=== PATIENT | female | born 1995 | race Caucasian/White ===

== ENCOUNTER 2019-04-13 13:42 | Emergency (ER) | payer OTHER, SELFPAY ==
[2019-04-13 13:47] VITALS: BP 152/70; PULSE 88; RESP 16; TEMP 36.6; O2SAT 100; BMI 37.1
[2019-04-13 14:11] VITALS: BP 154/102; PULSE 97; RESP 18; O2SAT 98
--- NOTE | 2019-04-13 14:12 | PC.NURSE ---
Patient reports that she has had congestion, and cough for 2 weeks. Patient states that she was seen at urgent care and diagnosed with a viral upper respiratory infection and sent home with breathing treatments. Patient states that it has not got any better. Patient reports the wheezing has got worse.
--- NOTE | 2019-04-13 14:36 | ED_ITS ---
Entered by Martha Moore, acting as scribe for Rigoberto Ashley MD, [facility] [place] Apr 13, 2019 13:42 HPI - General Adult General: Chief complaint: General Medical Stated complaint: congested Time Seen by Provider: 04/13/19 14:36 Source: patient Mode of arrival: ambulatory Limitations: no limitations History of Present Illness: HPI narrative: 23 yo Female presents to ED with complaint of migraine headache and near syncope. Pt states that she was diagnosed with a viral upper respiratory illness last week. Pt states that today she was cleaning a house and when she stool up she had to grab onto the counter to keep from passing out. Pt states that she coughs so much that she loses her breath as well. MD complaint: headache and near syncope Onset (ago): hour(s) Location: head Radiation: non-radiation Severity scale (1-10): 5 Relieving factors: none Exacerbating factors: movement Associated symptoms: Reports cough, headache(s) and syncope (near syncope); Deny dyspnea, nausea, rash or vomiting Review of Systems General: Reports: 10 or more systems reviewed and unremarkable except in HPI and below Const: Denies: fever, chills or body aches Eyes: Denies: change in vision, blurry vision or blind spots ENMT: Denies: throat pain, enlarged tonsils, painful swallowing, hoarseness, mouth pain or swelling of lips/tongue Card: Reports: syncope (near syncope) Resp: Reports: non-productive cough; Denies: shortness of breath or productive cough GI: Denies: abdominal pain, nausea or vomiting : Denies: flank pain, difficulty urinating, painful urination, urinary frequency, urinary urgency or urinary hesitancy Musc: Denies: neck pain, back pain, extremity pain, extremity swelling or joint pain Skin/Breast: Denies: rash, itching or redness Neuro: Reports: headache Endo: Denies: excessive urination, excessive thirst or tired all the time PFSH ED PFSH: Statuses (acute, chronic, etc) shown below reflect problem list status as previously entered and may not be historically accurate Social History Smoking and tobacco status: never smoked Physical Exam Const: COMMON NORMALS: no apparent distress, average body habitus, oriented x3, no limitations, healthy appearing, alert and well nourished HENMT: COMMON NORMALS: normocephalic, head/scalp atraumatic and moist oral mucous membranes HEAD & SCALP: normocephalic and atraumatic Eye: COMMON NORMALS: PERRL, EOMs intact bilaterally, conjunctivae normal and no scleral icterus CONJUNCTIVA: Yes conjunctivae normal PUPIL: Yes PERRL Neck/C-Spine: COMMON NORMALS: full ROM, supple, no meningeal signs, no JVD and no carotid bruits Chest: COMMONS NORMALS: inspection of chest normal and palpation of chest normal Resp: COMMON NORMALS: normal respiratory effort, no retractions, no use of accessory muscles, clear to auscultation bilaterally and percussion normal AUSCULTATION: clear to auscultation bilaterally PERCUSSION: percussion normal Cardio: COMMON NORMALS: no JVD, regular rate, regular rhythm, S1 normal heart sound, S2 normal heart sound, no gallops, no clicks, no murmurs, no rub and peripheral pulses 2+ throughout RATE: regular rate RHYTHM: regular rhythm HEART SOUNDS: S1 normal and S2 normal PERIPHERAL PULSES: pulses 2+ throughout GI: COMMON NORMALS: normal to inspection, nondistended, normoactive bowel sounds, soft to palpation, non-tender, no hepatosplenomegaly, no masses and no bruits PALPATION: Yes soft and Yes no hepatosplenomegaly : COMMON NORMALS: Yes no CVA tenderness BLADDER/KIDNEY EXAM: Yes no CVA tenderness Back/Pelvis: COMMON NORMALS: no CVA tenderness Extremity: COMMON NORMALS: normal to inspection, full ROM, normal capillary refill, no calf tenderness and no pedal edema Neuro: COMMON NORMALS: oriented x3 SENSORIUM/ORIENTATION: Yes alert MENINGEAL SIGNS: Yes no meningeal signs Skin: COMMON NORMALS: no rashes or lesions noted, no wounds, skin turgor normal, no jaundice, no petechiae and no mottling GENERAL SKIN EXAM: no rashes or lesions noted and turgor normal Course Reevaluation(s): Reevaluation #1: Patient feels good, no complaints. Discussed her lab and imaging findings with her. Nothing acute. I believe she has viral URI symptoms. We will discharge her home with instructions to drink lots of fluids to keep well-hydrated. She voiced understanding and is in agreement with the plan Time: 17:23 Vital Signs: Vital signs: Vital Signs Temperature 97.9 F 04/13/19 13:47 Pulse Rate 63 04/13/19 15:39 Respiratory Rate 16 04/13/19 16:30 Blood Pressure 127/82 04/13/19 16:30 Pulse Oximetry 98 04/13/19 16:30 MDM - General Adult MDM Narrative: Medical decision making narrative: 23-year-old female patient who has viral URI symptoms. She also had a single presyncopal episode after cleaning a house earlier today. All symptoms have resolved. Labs and imaging done in the emergency department was unremarkable. She is discharged home with no new orders. Medical Records: Attestation: I reviewed the patient's medical records. Lab Data: Attestation: I reviewed the patient's lab results. Labs: Lab Results 04/13/19 04/13/19 04/13/19 Range/Units 14:51 15:19 15:19 WBC 7.5 (4.0-10.0) 10^3/ uL RBC 4.95 (4.1-5.3) 10^6/u L Hgb 14.2 (11.5-15.3) g/dL Hct 43.2 (37.0-47.0) % MCV 87.3 (81-99) fL MCH 28.7 (28.0-34.0) pg MCHC 32.9 (30.0-36.0) g/dL RDW 11.7 L (12.1-15.1) % Plt Count 267 (130-400) 10^3/c mm MPV 10.1 (7.4-10.4) fL Neut % (Auto) 55.9 % Lymph % (Auto) 37.1 % Pratt % (Auto) 3.2 % Eos % (Auto) 2.7 % Baso % (Auto) 0.4 % Neut # (Auto) 4.2 (1.8-7.7) 10^3/u L Lymph # (Auto) 2.8 (0.8-4.8) 10^3/u L Pratt # (Auto) 0.2 (0.2-0.9) 10^3/u L Eos # (Auto) 0.2 (0.0-0.8) 10^3/u L Baso # (Auto) 0.0 (0.0-0.1) 10^3/u L Nucleated RBC % (a uto) 0 % Nucleated RBCs # 0.0 /100WBC Sodium 139 (136-145) mmol/L Potassium 3.6 (3.5-5.1) mmol/L Chloride 103 (98-107) mmol/L Carbon Dioxide 24 (22-29) mmol/L Anion Gap 15.6 (5-19) BUN 11 (6-20) mg/dL Creatinine 0.8 (0.5-0.9) mg/dL GFR Calculation 88.1 L (90-130) mL/min Glucose 132 H (74-109) mg/dL Calcium 9.9 (8.5-10.5) mg/dL Total Bilirubin 0.3 (0.15-1.2) mg/dL AST 16 (0-32) U/L ALT 21 (0-33) U/L Alkaline Phosphata se 111 H (35-105) IU/L Total Protein 7.7 (6.6-8.7) g/dL Albumin 4.5 (3.5-5.2) g/dL Globulin 3.2 (1.3-4.6) g/dL Influenza Type A A g Negative (Negative) POC Influenza B Ag Negative (Negative) Imaging Data^: CXR: Radiologist's impression: [address] [address] XRay Report Signed Patient: Estefany Foss #: [id number] : 1995Acct#:[id number] Age/Sex: 23 / FADM Date: 04/13/19 Loc: [facility] ([place]Bed: Attending Dr: Ordering Provider/Ordering MD: Rigoberto Ashley MD, [facility] [place] Date of Service: 04/13/19 Procedure(s): XR chest 2V* 86947 Accession Number(s): [id number] Report Number: [id number] PROCEDURE INFORMATION: Exam: XR Chest, 2 Views Exam date and time: 04/13/2019 2:57 PM Age: 23 years old Clinical indication: Chest pain; Additional info: Shortness of breath TECHNIQUE: Imaging protocol: XR of the chest Views: 2 views. COMPARISON: No relevant prior studies available. FINDINGS: Lungs: Unremarkable. No consolidation. Pleural space: Unremarkable. No pleural effusion. No pneumothorax. Heart/Mediastinum: Unremarkable. No cardiomegaly. Bones/joints: No acute findings. XR/XR chest 2V* [id number] IMPRESSION: No acute findings. Dictated By:Hoang Ortega MD Signed By:Hoang Ortega MDSigned Date/Time:04/13/19 1520 DD/ 1519 Discharge Plan Discharge Patient Disposition: Home, Self-Care Clinical Impression: Upper respiratory infection, viral Condition: Stable Prescriptions: No Action Nexplanon 68 mg implant 1 implant SUBDERMAL ONCE RF: 0 albuterol sulfate 2.5 mg /3 mL (0.083 %) solution for nebulization 2.5 mg INHALATION Q4H PRN (Reason: shortness of breath or wheezing) Qty: 90 RF: 0 Discharge Orders: Discharge Order (Routine); Ordered 04/13/19 Ordered By: Rigoberto Ashley Referrals: Tessa Vega FNP-C [Primary Care Provider] - 1-3 days Discharge Diet: Usual diet Discharge Activity: Resume usual activity Patient Instructions: Upper Respiratory Infection (ED) Activity Restrictions/Additional Instructions: Return for any new or worsening symptoms. Follow-up with your primary care provider within 3 days. Drink plenty of fluids to keep well-hydrated. Coding Level of Care Code ED Bilingual Sales Assistant for Chg Fwd Exam Problem Focused The documentation recorded by the Oscar aguila Carmen, accurately reflects the service I personally performed and the decisions made by Dion sexton Adegoke I, MD, [facility] [place] Apr 13, 2019 13:42
--- NOTE | 2019-04-13 14:45 | XRR_ITS ---
PROCEDURE INFORMATION: Exam: XR Chest, 2 Views Exam date and time: 04/13/2019 2:57 PM Age: 23 years old Clinical indication: Chest pain; Additional info: Shortness of breath TECHNIQUE: Imaging protocol: XR of the chest Views: 2 views. COMPARISON: No relevant prior studies available. FINDINGS: Lungs: Unremarkable. No consolidation. Pleural space: Unremarkable. No pleural effusion. No pneumothorax. Heart/Mediastinum: Unremarkable. No cardiomegaly. Bones/joints: No acute findings. XR/XR chest 2V* [id number] IMPRESSION: No acute findings.
[2019-04-13 14:48] VITALS: BP 135/96; RESP 17; O2SAT 98
[2019-04-13 15:17] LABS: Influenza A by IFA Negative (Negative); Influenza B by IFA Negative (Negative)
[2019-04-13 15:39] VITALS: BP 156/103; PULSE 63; RESP 18; O2SAT 96
[2019-04-13 15:45] LABS: Basophils % 0.4 %; Eosinophils # 0.2 10^3/uL (0.0-0.8); Eosinophils % 2.7 %; Hematocrit 43.2 % (37.0-47.0); Hemoglobin 14.2 g/dL (11.5-15.3); Lymphocytes # 2.8 10^3/uL (0.8-4.8); Lymphocytes % 37.1 %; Mean Corpuscular HGB Conc 32.9 g/dL (30.0-36.0); Mean Corpuscular Hemoglobin 28.7 pg (28.0-34.0); Mean Corpuscular Volume 87.3 fL (81-99); Mean Platelet Volume 10.1 fL (7.4-10.4); Monocytes # 0.2 10^3/uL (0.2-0.9); Monocytes % 3.2 %; Neutrophils # 4.2 10^3/uL (1.8-7.7); Neutrophils % 55.9 %; Nucleated Red Blood Cells % 0 %; Platelet Count 267 10^3/cmm (130-400); Red Blood Count 4.95 10^6/uL (4.1-5.3); Red Cell Distribution Width 11.7 % (12.1-15.1); White Blood Count 7.5 10^3/uL (4.0-10.0)
[2019-04-13 16:09] LABS: Alanine Aminotransferase 21 U/L (0-33); Albumin Level 4.5 g/dL (3.5-5.2); Alkaline Phosphatase 111 IU/L (35-105); Anion Gap 15.6 (5-19); Aspartate Amino Transferase 16 U/L (0-32); Blood Urea Nitrogen 11 mg/dL (6-20); Calcium 9.9 mg/dL (8.5-10.5); Carbon Dioxide 24 mmol/L (22-29); Chloride 103 mmol/L (98-107); Globulin 3.2 g/dL (1.3-4.6); Glomerular Filtration Rate 88.1 mL/min (90-130); Glucose 132 mg/dL (74-109); Potassium 3.6 mmol/L (3.5-5.1); Sodium 139 mmol/L (136-145); Total Bilirubin 0.3 mg/dL (0.15-1.2); Total Protein 7.7 g/dL (6.6-8.7)
[2019-04-13 16:30] VITALS: BP 127/82; RESP 16; O2SAT 98
[2019-04-13 17:32] VITALS: BP 120/73; PULSE 88; RESP 17; O2SAT 98
== END 2019-04-13 17:33 | disposition home or self-care (01) ==
PROVIDERS: Emergency Provider Family Medicine; Family Provider Nurse Practitioner Family; PCP Nurse Practitioner Family
DX: J06.9 Acute upper respiratory infection, unspecified (principal)
CPT/HCPCS: 36415; 71046; 80053; 85025; 87804; 99282; 99283

== ENCOUNTER 2019-04-15 13:28 | Emergency (ER) | payer OTHER, SELFPAY ==
[2019-04-15 13:38] VITALS: BP 140/78; PULSE 85; RESP 18; TEMP 36.6; O2SAT 97; BMI 37.1
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
[2019-04-15 15:16] VITALS: BP 162/95; PULSE 77; RESP 18; TEMP 36.4; O2SAT 98
== END 2019-04-15 15:17 | disposition home or self-care (01) ==
PROVIDERS: Emergency Provider Emergency Medicine; Family Provider Nurse Practitioner Family; PCP Nurse Practitioner Family
DX: S13.4XXA Sprain of ligaments of cervical spine, initial encounter (principal); V89.2XXA Person injured in unspecified motor-vehicle accident, traffic, initial encounter
CPT/HCPCS: 72072; 72100; 72125; 73030; 99281; 99284

== ENCOUNTER 2019-05-30 19:15 | Emergency (ER) | payer OTHER, SELFPAY ==
[2019-05-30 19:20] VITALS: BP 113/74; PULSE 133; RESP 20; TEMP 37.6; O2SAT 98; BMI 378.4
--- NOTE | 2019-05-30 19:52 | ED_ITS ---
Entered by Martha Moore, acting as scribe for Rigoberto Ashley MD, [facility] [place] - Nausea/Vomiting/Diarrhea General: Chief complaint: Nausea/Vomiting/Diarrhea Stated complaint: abd pain Time Seen by Provider: 05/30/19 19:47 Source: patient Mode of arrival: ambulatory Limitations: no limitations History of Present Illness: HPI Narrative: 23 yo Female presents to ED with complaint of back pain and right side abdominal pain. Pt states that these pains started this afternoon. Pt states that she had an episode like this last week but it went away. Pt states that she had her first period in 5 years, last week. Pt states that she normally doesn't have a period while on control. Pt states that she also has a history of ovarian cysts and that the last time she had it checked the cyst had overtaken her right ovary. MD elicited complaint: abdominal pain Onset (ago): hour(s) Associated nausea: No Associated abdominal pain: Yes Location of pain: RLQ Pain consistency: constant Relieving factors: none Associated symtoms: Reports fevers/chills and headache(s); Denies change in vision, chest pain, decreased urine output, dysuria, nausea or palpitations Review of Systems General: Reports: 10 or more systems reviewed and unremarkable except in HPI and below Const: Reports: fever and chills; Denies: body aches Eyes: Denies: change in vision or blurry vision ENMT: Denies: throat pain, enlarged tonsils, painful swallowing, hoarseness, mouth pain or swelling of lips/tongue Card: Denies: chest pain, palpitations, irregular heart rhythm, edema or swelling of feet/ankles Resp: Denies: shortness of breath, productive cough or non-productive cough GI: Reports: abdominal pain; Denies: nausea or vomiting : Denies: flank pain, difficulty urinating, painful urination, urinary frequency, urinary urgency or urinary hesitancy Musc: Denies: neck pain, back pain or extremity swelling Skin/Breast: Denies: rash, itching or redness Neuro: Reports: headache; Denies: numbness in extremities or weakness in extremities Endo: Denies: excessive urination, excessive thirst or tired all the time [facility] ED PFSH: Social History Smoking and tobacco status: never smoked Female Reproductive History: Date of last menstrual period: 02/11/19 Physical Exam Const: COMMON NORMALS: no apparent distress, average body habitus, oriented x3, no limitations, healthy appearing, alert and well nourished HENMT: COMMON NORMALS: normocephalic, head/scalp atraumatic and moist oral mucous membranes HEAD & SCALP: normocephalic and atraumatic Eye: COMMON NORMALS: PERRL, EOMs intact bilaterally, conjunctivae normal and no scleral icterus CONJUNCTIVA: Yes conjunctivae normal PUPIL: Yes PERRL Neck/C-Spine: COMMON NORMALS: full ROM, supple, no meningeal signs, no JVD and no carotid bruits Chest: COMMONS NORMALS: inspection of chest normal and palpation of chest normal Resp: COMMON NORMALS: normal respiratory effort, no retractions, no use of accessory muscles, clear to auscultation bilaterally and percussion normal AUSCULTATION: clear to auscultation bilaterally PERCUSSION: percussion normal Cardio: COMMON NORMALS: no JVD, regular rate, regular rhythm, S1 normal heart sound, S2 normal heart sound, no gallops, no clicks, no murmurs, no rub and peripheral pulses 2+ throughout RATE: regular rate RHYTHM: regular rhythm HEART SOUNDS: S1 normal and S2 normal PERIPHERAL PULSES: pulses 2+ throughout GI: COMMON NORMALS: normal to inspection, nondistended, normoactive bowel sounds, soft to palpation, no hepatosplenomegaly, no masses and no bruits; negative for non-tender PALPATION: Yes soft, Yes tender Details: RLQ and Yes no hepatosplenomegaly : COMMON NORMALS: Yes no CVA tenderness BLADDER/KIDNEY EXAM: Yes no CVA tenderness Back/Pelvis: COMMON NORMALS: no CVA tenderness Extremity: COMMON NORMALS: normal to inspection, full ROM, normal capillary refill, no calf tenderness and no pedal edema Neuro: COMMON NORMALS: oriented x3 SENSORIUM/ORIENTATION: Yes alert MENINGEAL SIGNS: Yes no meningeal signs Skin: COMMON NORMALS: no rashes or lesions noted, no wounds, skin turgor normal, no jaundice, no petechiae and no mottling GENERAL SKIN EXAM: no rashes or lesions noted and turgor normal Course Reevaluation(s): Reevaluation #1: Patient seen. She feels better now. Her headache and abdominal pain have improved. She thinks she is ready to go home. We will discharge her home on conservative management. Time: 22:50 Vital Signs: Vital signs: Vital Signs Temperature 99.7 F H 05/30/19 19:20 Pulse Rate 133 H 05/30/19 19:20 Respiratory Rate 17 05/30/19 22:15 Blood Pressure 113/74 05/30/19 19:20 Pulse Oximetry 98 05/30/19 22:15 MDM - Nausea/Vomiting/Diarrhea MDM Narrative: Medical decision making narrative: 23-year-old female patient who presents to the emergency department with complaints of right lower quadrant pain. Evaluation in the emergency department showed tenderness in the right lower quadrant but with no rebound tenderness. She had mild leukocytosis and mildly elevated CRP. CT scan was negative for acute appendicitis and showed mesenteric adenitis. She is discharged home on conservative measures. She is to follow-up with her primary care provider. Medical Records: Attestation: I reviewed the patient's medical records. Lab Data: Attestation: I reviewed the patient's lab results. Labs: Lab Results 05/30/19 05/30/19 05/30/19 Range/Units 19:59 19:59 19:59 WBC 11.3 H (4.0-10.0) 10^3/ uL RBC 4.87 (4.1-5.3) 10^6/u L Hgb 14.9 (11.5-15.3) g/dL Hct 44.4 (37.0-47.0) % MCV 91.2 (81-99) fL MCH 30.6 (28.0-34.0) pg MCHC 33.6 (30.0-36.0) g/dL RDW 12.9 (12.1-15.1) % Plt Count 270 (130-400) 10^3/c mm MPV 10.3 (7.4-10.4) fL Neut % (Auto) 88.7 % Lymph % (Auto) 5.6 % Coryell % (Auto) 4.9 % Eos % (Auto) 0.1 % Baso % (Auto) 0.3 % Neut # (Auto) 10.0 H (1.8-7.7) 10^3/u L Lymph # (Auto) 0.6 L (0.8-4.8) 10^3/u L Coryell # (Auto) 0.6 (0.2-0.9) 10^3/u L Eos # (Auto) 0.0 (0.0-0.8) 10^3/u L Baso # (Auto) 0.0 (0.0-0.1) 10^3/u L Nucleated RBC % (a uto) 0 % Nucleated RBCs # 0.0 /100WBC Sodium 137 (136-145) mmol/L Potassium 3.7 (3.5-5.1) mmol/L Chloride 102 (98-107) mmol/L Carbon Dioxide 19 L (22-29) mmol/L Anion Gap 19.7 H (5-19) BUN 17 (6-20) mg/dL Creatinine 0.8 (0.5-0.9) mg/dL GFR Calculation 88.1 L (90-130) mL/min Glucose 107 (65-115) mg/dL Calculated Osmolal ity 281 L (285-295) mOsm/k g Lactate 1.5 (0.5-2.2) mmol/L Calcium 9.5 (8.5-10.5) mg/dL Total Bilirubin 0.6 (0.15-1.2) mg/dL AST 20 (0-32) U/L ALT 32 (0-33) U/L Alkaline Phosphata se 96 (35-105) IU/L C-Reactive Protein 11.4 H (0.0-4.9) mg/L Total Protein 7.1 (6.6-8.7) g/dL Albumin 4.5 (3.5-5.2) g/dL Globulin 2.6 (1.3-4.6) g/dL HCG, Qual (Negative) Urine Color (Yellow) Urine Appearance (CLEAR) Urine pH (5-7) Ur Specific Gravit y (1.005-1.030) Urine Protein (Negative) Urine Glucose (UA) (Normal) Urine Ketones (Negative) Urine Blood (Negative) Urine Nitrate (Negative) Urine Bilirubin (NEGATIVE) Urine Urobilinogen (Negative) mg/dL Ur Leukocyte Charmaine ase (Negative) Urine RBC (0-2) /hpf Urine WBC (0-5) /hpf Ur Squamous Epith Cells (0-5) Urine Bacteria (NONE) Urine Mucus 05/30/19 05/30/19 Range/Units 20:46 20:46 WBC (4.0-10.0) 10^3/ uL RBC (4.1-5.3) 10^6/u L Hgb (11.5-15.3) g/dL Hct (37.0-47.0) % MCV (81-99) fL MCH (28.0-34.0) pg MCHC (30.0-36.0) g/dL RDW (12.1-15.1) % Plt Count (130-400) 10^3/c mm MPV (7.4-10.4) fL Neut % (Auto) % Lymph % (Auto) % Coryell % (Auto) % Eos % (Auto) % Baso % (Auto) % Neut # (Auto) (1.8-7.7) 10^3/u L Lymph # (Auto) (0.8-4.8) 10^3/u L Coryell # (Auto) (0.2-0.9) 10^3/u L Eos # (Auto) (0.0-0.8) 10^3/u L Baso # (Auto) (0.0-0.1) 10^3/u L Nucleated RBC % (a uto) % Nucleated RBCs # /100WBC Sodium (136-145) mmol/L Potassium (3.5-5.1) mmol/L Chloride (98-107) mmol/L Carbon Dioxide (22-29) mmol/L Anion Gap (5-19) BUN (6-20) mg/dL Creatinine (0.5-0.9) mg/dL GFR Calculation (90-130) mL/min Glucose (65-115) mg/dL Calculated Osmolal ity (285-295) mOsm/k g Lactate (0.5-2.2) mmol/L Calcium (8.5-10.5) mg/dL Total Bilirubin (0.15-1.2) mg/dL AST (0-32) U/L ALT (0-33) U/L Alkaline Phosphata se (35-105) IU/L C-Reactive Protein (0.0-4.9) mg/L Total Protein (6.6-8.7) g/dL Albumin (3.5-5.2) g/dL Globulin (1.3-4.6) g/dL HCG, Qual Negative (Negative) Urine Color Yellow (Yellow) Urine Appearance Hazy A (CLEAR) Urine pH 6 (5-7) Ur Specific Gravit y 1.015 (1.005-1.030) Urine Protein Neg (Negative) Urine Glucose (UA) Norm (Normal) Urine Ketones Negative (Negative) Urine Blood 2+ H (Negative) Urine Nitrate Negative (Negative) Urine Bilirubin Neg (NEGATIVE) Urine Urobilinogen Norm (Negative) mg/dL Ur Leukocyte Charmaine ase Trace H (Negative) Urine RBC 5-10 H (0-2) /hpf Urine WBC 5-10 H (0-5) /hpf Ur Squamous Epith Cells 5-10 H (0-5) Urine Bacteria 1+ H (NONE) Urine Mucus 1+ Imaging Data^: CT Abd/Pel: Radiologist's impression: [place] [address] CT Scan Report Signed Patient: Estefany Foss #: [id number] : 1995Acct#:[id number] Age/Sex: 23 FADM Date: 05/30/19 Loc: ERRoom/Bed: Attending Dr: Ordering Provider/Ordering MD: Rigoberto Ashley MD, [facility] Date of Service: 05/30/19 Procedure(s): CT abdomen pelvis w con* [id number] Accession Number(s): [id number] Report Number: [id number] PROCEDURE INFORMATION: Exam: CT Abdomen And Pelvis With Contrast Exam date and time: 05/30/2019 9:24 PM Age: 23 years old Clinical indication: Nausea and vomiting; Abdominal pain; Generalized; Additional info: Rlq pain TECHNIQUE: Imaging protocol: Computed tomography of the abdomen and pelvis with intravenous contrast. Total DLP: 1670.1 mGy-cm Radiation optimization: All CT scans at this facility use at least one of these dose optimization techniques: automated exposure control; mA and/or kV adjustment per patient size (includes targeted exams where dose is matched to clinical indication); or iterative reconstruction. Contrast material: OMNI 300; Contrast volume: 95 ml; Contrast route: 20G; COMPARISON: No relevant prior studies available. FINDINGS: Liver: Unremarkable. No mass. Gallbladder and bile ducts: Normal. No calcified stones. No ductal dilation. Pancreas: Normal. No ductal dilation. Spleen: Normal. No splenomegaly. Adrenals: Normal. No mass. Kidneys and ureters: Normal. No hydronephrosis. Stomach and bowel: Nonobstructive bowel pattern. No evidence for adynamic or reactive ileus. No evidence for diverticulitis. Appendix: The appendix is visualized and is noninflamed. Intraperitoneal space: Examination reveals mild mesenteritis with mesenteric lymphadenitis. Vasculature: The abdominal aorta is nonaneurysmal. Lymph nodes: Unremarkable. No enlarged lymph nodes. Bladder: Unremarkable as visualized. Reproductive: Examination reveals a simple left ovarian cyst maximum dimensions 39 mm x 25 mm x 31 mm. Recommend US follow-up in 6-12 weeks. Small, less than 1 cm, right ovarian follicle cysts. Bones/joints: No visible active musculoskeletal pathology. Soft tissues: Unremarkable. Other findings: Lung bases clear. CT/CT abdomen pelvis w con* [id number] IMPRESSION: 1. Mild mesenteritis with mesenteric lymphadenitis. 2. The appendix is visualized and is noninflamed. 3. Examination reveals a simple left ovarian cyst maximum dimensions 39 mm x 25 mm x 31 mm. Recommend US follow-up in 6-12 weeks. Radiation Dose CTDIVOL = (mGy): DLP = 1670.1 (mGy-cm) Dictated By:Frank Toledo Signed By:Frank ToledoSignfredi Date/Time:05/30/192156 DD/ 54 EKG Data^: EKG 1: Attestation: I personally reviewed and interpreted this EKG as follows: EKG interpretation date: 05/30/19 Prior EKG tracings: not available for review Interpretation: Sinus tachycardia. Heart rate [address] changes. Normal axis. Discharge Plan Discharge Patient Disposition: Home, Self-Care Clinical Impression: Acute mesenteric adenitis, Cyst of left ovary Condition: Stable Prescriptions: Continued Nexplanon 68 mg implant 1 implant SUBDERMAL ONCE RF: 0 Discharge Orders: Discharge Order (Routine); Ordered 05/30/19 Ordered By: Rigoberto Ashley Referrals: Tessa Vega FNP-C [Primary Care Provider] - 7-10 days Patient Instructions: Mesenteric Adenitis (ED) Activity Restrictions/Additional Instructions: Return for any new or worsening symptoms. Follow up with your primary care provider within one week. Take tylenol or ibuprofen as needed for pain. Stand Alone Forms: Work/School Release Discharge Date/Time: 05/30/19 23:09 Coding Level of Care Code ED Us Administrative Law Judge for Chg Fwd Exam Comprehensive The documentation recorded by the Oscar aguila Carmen, accurately reflects the service I personally performed and the decisions made by Dion sexton Adegoke I, MD, [facility] May 30, 2019 19:15
--- NOTE | 2019-05-30 20:04 | CTR_ITS ---
PROCEDURE INFORMATION: Exam: CT Abdomen And Pelvis With Contrast Exam date and time: 05/30/2019 9:24 PM Age: 23 years old Clinical indication: Nausea and vomiting; Abdominal pain; Generalized; Additional info: Rlq pain TECHNIQUE: Imaging protocol: Computed tomography of the abdomen and pelvis with intravenous contrast. Total DLP: 1670.1 mGy-cm Radiation optimization: All CT scans at this facility use at least one of these dose optimization techniques: automated exposure control; mA and/or kV adjustment per patient size (includes targeted exams where dose is matched to clinical indication); or iterative reconstruction. Contrast material: OMNI 300; Contrast volume: 95 ml; Contrast route: 20G; COMPARISON: No relevant prior studies available. FINDINGS: Liver: Unremarkable. No mass. Gallbladder and bile ducts: Normal. No calcified stones. No ductal dilation. Pancreas: Normal. No ductal dilation. Spleen: Normal. No splenomegaly. Adrenals: Normal. No mass. Kidneys and ureters: Normal. No hydronephrosis. Stomach and bowel: Nonobstructive bowel pattern. No evidence for adynamic or reactive ileus. No evidence for diverticulitis. Appendix: The appendix is visualized and is noninflamed. Intraperitoneal space: Examination reveals mild mesenteritis with mesenteric lymphadenitis. Vasculature: The abdominal aorta is nonaneurysmal. Lymph nodes: Unremarkable. No enlarged lymph nodes. Bladder: Unremarkable as visualized. Reproductive: Examination reveals a simple left ovarian cyst maximum dimensions 39 mm x 25 mm x 31 mm. Recommend US follow-up in 6-12 weeks. Small, less than 1 cm, right ovarian follicle cysts. Bones/joints: No visible active musculoskeletal pathology. Soft tissues: Unremarkable. Other findings: Lung bases clear. CT/CT abdomen pelvis w con* [id number] IMPRESSION: 1. Mild mesenteritis with mesenteric lymphadenitis. 2. The appendix is visualized and is noninflamed. 3. Examination reveals a simple left ovarian cyst maximum dimensions 39 mm x 25 mm x 31 mm. Recommend US follow-up in 6-12 weeks. Radiation Dose CTDIVOL = (mGy): DLP = 1670.1 (mGy-cm)
[2019-05-30] MEDS: sodium chloride 0.9% 1,000 ML 999 ML IV (20:10)
[2019-05-30 20:20] LABS: Basophils % 0.3 %; Eosinophils % 0.1 %; Hematocrit 44.4 % (37.0-47.0); Hemoglobin 14.9 g/dL (11.5-15.3); Lymphocytes # 0.6 10^3/uL (0.8-4.8); Lymphocytes % 5.6 %; Mean Corpuscular HGB Conc 33.6 g/dL (30.0-36.0); Mean Corpuscular Hemoglobin 30.6 pg (28.0-34.0); Mean Corpuscular Volume 91.2 fL (81-99); Mean Platelet Volume 10.3 fL (7.4-10.4); Monocytes # 0.6 10^3/uL (0.2-0.9); Monocytes % 4.9 %; Neutrophils % 88.7 %; Nucleated Red Blood Cells % 0 %; Platelet Count 270 10^3/cmm (130-400); Red Blood Count 4.87 10^6/uL (4.1-5.3); Red Cell Distribution Width 12.9 % (12.1-15.1); White Blood Count 11.3 10^3/uL (4.0-10.0)
[2019-05-30 20:33] LABS: Alanine Aminotransferase 32 U/L (0-33); Albumin Level 4.5 g/dL (3.5-5.2); Alkaline Phosphatase 96 IU/L (35-105); Anion Gap 19.7 (5-19); Aspartate Amino Transferase 20 U/L (0-32); Blood Urea Nitrogen 17 mg/dL (6-20); C Reactive Protein 11.4 mg/L (0.0-4.9); Calcium 9.5 mg/dL (8.5-10.5); Carbon Dioxide 19 mmol/L (22-29); Chloride 102 mmol/L (98-107); Globulin 2.6 g/dL (1.3-4.6); Glomerular Filtration Rate 88.1 mL/min (90-130); Glucose 107 mg/dL (65-115); Lactate (Lactic Acid level) 1.5 mmol/L (0.5-2.2); Osmolality Calculated 281 mOsm/kg (285-295); Potassium 3.7 mmol/L (3.5-5.1); Sodium 137 mmol/L (136-145); Total Bilirubin 0.6 mg/dL (0.15-1.2); Total Protein 7.1 g/dL (6.6-8.7)
[2019-05-30 21:12] LABS: HCG Qualitative Urine. Negative (Negative)
[2019-05-30 21:14] LABS: Add Urine Microscopic? YES; Bilirubin Urine Neg (NEGATIVE); Blood Urine 2+ (Negative); Glucose Urine UA Norm (Normal); Ketones Urine Negative (Negative); Leukocyte Esterase Urine Trace (Negative); Nitrate Urine Negative (Negative); Protein Urine Neg (Negative); Specific Gravity, Urine 1.015 (1.005-1.030); Urine Appearance Hazy (CLEAR); Urine Color Yellow (Yellow); Urobilinogen Urine Norm (Negative); pH Urine 6 (5-7)
[2019-05-30 21:36] LABS: Add Urine Culture? No; Bacteria Urine 1+; Mucus Urine 1+
[2019-05-30] MEDS: iohexol 300 mg/mL 100 mL Btl IV (21:38)
[2019-05-30 22:15] VITALS: RESP 17; O2SAT 98
[2019-05-30] MEDS: morphine 4 mg/mL SDV 1 mL IVP (22:15)
[2019-05-30] MEDS: diphenhydrAMINE 50 mg/mL SDV 1mL 25 MG IVP (22:21)
[2019-05-30] MEDS: ketorolac 30 mg/mL INJ IVP (22:22)
[2019-05-30 23:09] VITALS: BP 108/57; PULSE 103; RESP 18; O2SAT 96
== END 2019-05-30 23:09 | disposition home or self-care (01) ==
PROVIDERS: Emergency Provider Family Medicine; Family Provider Nurse Practitioner Family; PCP Nurse Practitioner Family
DX: I88.0 Nonspecific mesenteric lymphadenitis (principal); N83.292 Other ovarian cyst, left side; D72.829 Elevated white blood cell count, unspecified; R79.82 Elevated C-reactive protein (CRP)
CPT/HCPCS: 12345; 36415; 74177; 80053; 81001; 81025; 83605; 85025; 86140; 87040; 96360; 96361; 96374; 96375; 99283; A9270; J1200; J1885; J2270; J7030; Q9967

== ENCOUNTER 2019-05-31 14:20 | Observation (INO) | payer OTHER, SELFPAY ==
[2019-05-31 14:28] VITALS: BP 116/73; PULSE 138; RESP 16; TEMP 36.8; O2SAT 142; BMI 37.5
--- NOTE | 2019-05-31 14:44 | ECG_ITS ---
Measurements Intervals [place] Rate: 120 P: 33 MI: 144 QRS: 79 QRSD: 85 T: 3 QT: 323 QTc: 458 SINUS TACHYCARDIA POSSIBLE RIGHT VENTRICULAR CONDUCTION DELAY [RSR (QR) IN V1/V2] NONSPECIFIC T-WAVE ABNORMALITY No previous ECG available for comparison Electronically Signed On 05-31-2019 17:43:21 CDT by Lulu Verdugo M.D. [email or web address]
--- NOTE | 2019-05-31 14:45 | W.ED.ABDPA2 ---
Documented by User: Teri Rocha 05/31/19 16:31 HPI - Abdominal Pain General: Chief Complaint: Abdominal Pain Stated Complaint: back and abd pain, h/a Time Seen by Provider: 05/31/19 14:34 Source: patient Mode of arrival: ambulatory Limitations: no limitations History of Present Illness: MD elicited complaint: abdominal pain and flank pain Severity: moderate Quality: cramping Associated Symptoms: Reports chills, fever(s), nausea and vomiting; Denies dysuria Related Data: Date of Last Menstrual Period: 02/11/19 Review of Systems Const: Reports: fever, chills and fatigue GI: Reports: abdominal pain, nausea and vomiting : Reports: flank pain and pelvic pain; Denies: painful urination PFSH ED PFSH: Social History Smoking and tobacco status: never smoked Female Reproductive History: Date of last menstrual period: 02/11/19 Physical Exam Narrative: EXAM NARRATIVE: Pt is visibly shaking during assessment due to chills. HR elevated upon checking. Const: COMMON NORMALS: no apparent distress, oriented x3, no limitations and alert GENERAL APPEARANCE: cooperative and comfortable ORIENTATION/CONSCIOUSNESS: Yes awake, Yes oriented to person, Yes oriented to place and Yes oriented to time HENMT: COMMON NORMALS: normocephalic, head/scalp atraumatic, external ears normal, EAC's normal, TM's normal bilaterally and external nose normal HEAD & SCALP: normal to inspection, normocephalic and atraumatic FACE & SINUS: normal facial exam, sinuses nontender and face symmetric NOSE: external nose normal, nares normal and no nasal discharge EXTERNAL EAR: Yes external ears normal EXTERNAL AUDITORY CANAL: EAC's normal TYMPANIC MEMBRANE: TM's normal bilaterally MOUTH: oral and palatal mucosa normal, lip normal and tongue normal THROAT: posterior oropharynx normal, tonsils normal and uvula midline Eye: COMMON NORMALS: PERRL, EOMs intact bilaterally and conjunctivae normal GENERAL EYE: normal appearance of both eyes and normal light reflex EYELID: eyelids normal CONJUNCTIVA: Yes conjunctivae normal PUPIL: Yes PERRL EOM: Yes EOM abnormal DIRECT OPHTHALMOSCOPY: Yes normal light reflex Neck/C-Spine: COMMON NORMALS: full ROM, no lymphadenopathy, supple, no meningeal signs, no JVD and thyroid normal GENERAL: Yes normal visual inspection THYROID: thyroid normal CERVICAL SPINE: Yes cervical ROM normal and Yes normal cervical lordosis Lymph: LYMPHATIC: no lymphadenopathy noted Chest: COMMONS NORMALS: inspection of chest normal and palpation of chest normal Resp: COMMON NORMALS: normal respiratory effort, no retractions and clear to auscultation bilaterally AUSCULTATION: clear to auscultation bilaterally Cardio: COMMON NORMALS: no JVD, regular rate, regular rhythm, S1 normal heart sound, S2 normal heart sound, no gallops, no clicks, no murmurs, no rub and peripheral pulses 2+ throughout RATE: regular rate RHYTHM: regular rhythm HEART SOUNDS: S1 normal and S2 normal PERIPHERAL PULSES: pulses 2+ throughout GI: COMMON NORMALS: normal to inspection, nondistended, normoactive bowel sounds, soft to palpation, non-tender and no masses PALPATION: Yes soft : COMMON NORMALS: Yes external appearance normal BLADDER/KIDNEY EXAM: Yes CVA tenderness Back/Pelvis: COMMON NORMALS: thoracic and lumbar spine normal to inspection, no thoracic nor lumbar tenderness and thoraco-lumbar ROM normal GENERAL BACK: Yes CVA tenderness CVA tenderness: bilateral Extremity: COMMON NORMALS: normal to inspection, full ROM, normal capillary refill, no joint enlargement, no clubbing, cyanosis or edema, no calf tenderness and no pedal edema GENERAL: Yes normal exam except as noted Neuro: COMMON NORMALS: oriented x3, moves all extremities, no focal motor deficits, no sensory deficits noted and gait normal SENSORIUM/ORIENTATION: Yes alert, Yes oriented to person, Yes oriented to place and Yes oriented to time MENINGEAL SIGNS: Yes no meningeal signs Psych: COMMON NORMALS: mental status grossly normal, thought process normal, cooperative, affect normal, speech normal and activity/motor behavior normal SPEECH: Yes normal speech THOUGHT PROCESS: normal thought process Skin: COMMON NORMALS: no rashes or lesions noted, no wounds and skin turgor normal GENERAL SKIN EXAM: no rashes or lesions noted and turgor normal Course ED course: Pt was seen yesterday and dx with left ovarian cyst and mesenteric lymphadenitis. WBC was less than 10 yesterday but pt appears mildly toxic when being seen today. Reassessment of labs as well as kidneys to ensure pt does not have infection as her HR remains elevated despite fluids given yesterday. Reevaluation(s): Reevaluation #1: Pt pain has improved. HR decreasing at 118 while at rest. Has had sudden and intense episodes of pain in flank area but otherwise is not toxic appearing. Her WBC count is downto 7.2 from yesterday. Awaiting UA at this time. Pt does note that she has not had a period in over a year but had one starting last week and had a lot of pain associated with it. She is no longer menstruating today. Time: 16:31 Vital Signs: Vital signs: Vital Signs Temperature 98.1 F 06/01/19 00:01 Pulse Rate 92 06/01/19 00:01 Respiratory Rate 20 H 06/01/19 00:01 Blood Pressure 123/81 06/01/19 00:01 Pulse Oximetry 97 06/01/19 00:01 MDM - Abdominal Pain Lab Data: Labs: Lab Results 05/31/19 05/31/19 05/31/19 Range/Units 15:04 15:04 15:04 WBC 7.2 (4.0-10.0) 10^3/ uL RBC 4.71 (4.1-5.3) 10^6/u L Hgb 14.3 (11.5-15.3) g/dL Hct 44.3 (37.0-47.0) % MCV 94.1 (81-99) fL MCH 30.4 (28.0-34.0) pg MCHC 32.3 (30.0-36.0) g/dL RDW 13.3 (12.1-15.1) % Plt Count 239 (130-400) 10^3/c mm MPV 10.0 (7.4-10.4) fL Neut % (Auto) 82.1 % Lymph % (Auto) 8.3 % [place] % (Auto) 8.8 % Eos % (Auto) 0.0 % Baso % (Auto) 0.4 % Neut # (Auto) 5.9 (1.8-7.7) 10^3/u L Lymph # (Auto) 0.6 L (0.8-4.8) 10^3/u L [place] # (Auto) 0.6 (0.2-0.9) 10^3/u L Eos # (Auto) 0.0 (0.0-0.8) 10^3/u L Baso # (Auto) 0.0 (0.0-0.1) 10^3/u L Nucleated RBC % (a uto) 0 % Nucleated RBCs # 0.0 /100WBC Sodium 138 (136-145) mmol/L Potassium 3.6 (3.5-5.1) mmol/L Chloride 105 (98-107) mmol/L Carbon Dioxide 22 (22-29) mmol/L Anion Gap 14.6 (5-19) BUN 13 (6-20) mg/dL Creatinine 0.8 (0.5-0.9) mg/dL GFR Calculation 88.1 L (90-130) mL/min Glucose 106 (65-115) mg/dL Calculated Osmolal ity 283 L (285-295) mOsm/k g Lactate 0.8 (0.5-2.2) mmol/L Calcium 9.1 (8.5-10.5) mg/dL Total Bilirubin 0.5 (0.15-1.2) mg/dL AST 20 (0-32) U/L ALT 26 (0-33) U/L Alkaline Phosphata se 90 (35-105) IU/L Creatine Kinase (26-192) U/L Troponin T Gen 5 n g/L (0-10) ng/mL Total Protein 7.2 (6.6-8.7) g/dL Albumin 3.8 (3.5-5.2) g/dL Globulin 3.4 (1.3-4.6) g/dL TSH (0.27-4.20) uIU/ mL Urine Color (Yellow) Urine Appearance (CLEAR) Urine pH (5-7) Ur Specific Gravit y (1.005-1.030) Urine Protein (Negative) Urine Glucose (UA) (Normal) Urine Ketones (Negative) Urine Blood (Negative) Urine Nitrate (Negative) Urine Bilirubin (NEGATIVE) Urine Urobilinogen (Negative) mg/dL Ur Leukocyte Charmaine ase (Negative) Urine Opiates Scre en (Negative) ng/mL Ur Barbiturates Sc reen (Negative) ng/mL Ur Phencyclidine S crn (Negative) ng/mL Ur Amphetamines Sc reen (Negative) ng/mL U Benzodiazepines Scrn (Negative) ng/mL Urine Cocaine Scre en (Negative) ng/mL U Marijuana (THC) Screen (Negative) ng/mL Ethyl Alcohol (0-10) mg/dL 05/31/19 05/31/19 05/31/19 Range/Units 16:55 16:55 22:05 WBC (4.0-10.0) 10^3/ uL RBC (4.1-5.3) 10^6/u L Hgb (11.5-15.3) g/dL Hct (37.0-47.0) % MCV (81-99) fL MCH (28.0-34.0) pg MCHC (30.0-36.0) g/dL RDW (12.1-15.1) % Plt Count (130-400) 10^3/c mm MPV (7.4-10.4) fL Neut % (Auto) % Lymph % (Auto) % [place] % (Auto) % Eos % (Auto) % Baso % (Auto) % Neut # (Auto) (1.8-7.7) 10^3/u L Lymph # (Auto) (0.8-4.8) 10^3/u L [place] # (Auto) (0.2-0.9) 10^3/u L Eos # (Auto) (0.0-0.8) 10^3/u L Baso # (Auto) (0.0-0.1) 10^3/u L Nucleated RBC % (a uto) % Nucleated RBCs # /100WBC Sodium (136-145) mmol/L Potassium (3.5-5.1) mmol/L Chloride (98-107) mmol/L Carbon Dioxide (22-29) mmol/L Anion Gap (5-19) BUN (6-20) mg/dL Creatinine (0.5-0.9) mg/dL GFR Calculation (90-130) mL/min Glucose (65-115) mg/dL Calculated Osmolal ity (285-295) mOsm/k g Lactate (0.5-2.2) mmol/L Calcium (8.5-10.5) mg/dL Total Bilirubin (0.15-1.2) mg/dL AST (0-32) U/L ALT (0-33) U/L Alkaline Phosphata se (35-105) IU/L Creatine Kinase 56 (26-192) U/L Troponin T Gen 5 n g/L (0-10) ng/mL Total Protein (6.6-8.7) g/dL Albumin (3.5-5.2) g/dL Globulin (1.3-4.6) g/dL TSH 1.37 (0.27-4.20) uIU/ mL Urine Color Yellow (Yellow) Urine Appearance Clear (CLEAR) Urine pH 5 (5-7) Ur Specific Gravit y 1.015 (1.005-1.030) Urine Protein Neg (Negative) Urine Glucose (UA) Norm (Normal) Urine Ketones Negative (Negative) Urine Blood Neg (Negative) Urine Nitrate Negative (Negative) Urine Bilirubin Neg (NEGATIVE) Urine Urobilinogen Norm (Negative) mg/dL Ur Leukocyte Charmaine ase Negative (Negative) Urine Opiates Scre en Positive H (Negative) ng/mL Ur Barbiturates Sc reen Negative (Negative) ng/mL Ur Phencyclidine S crn Negative (Negative) ng/mL Ur Amphetamines Sc reen Negative (Negative) ng/mL U Benzodiazepines Scrn Negative (Negative) ng/mL Urine Cocaine Scre en Negative (Negative) ng/mL U Marijuana (THC) Screen Negative (Negative) ng/mL Ethyl Alcohol < 10 (0-10) mg/dL 05/31/19 Range/Units 22:05 WBC (4.0-10.0) 10^3/ uL RBC (4.1-5.3) 10^6/u L Hgb (11.5-15.3) g/dL Hct (37.0-47.0) % MCV (81-99) fL MCH (28.0-34.0) pg MCHC (30.0-36.0) g/dL RDW (12.1-15.1) % Plt Count (130-400) 10^3/c mm MPV (7.4-10.4) fL Neut % (Auto) % Lymph % (Auto) % [place] % (Auto) % Eos % (Auto) % Baso % (Auto) % Neut # (Auto) (1.8-7.7) 10^3/u L Lymph # (Auto) (0.8-4.8) 10^3/u L [place] # (Auto) (0.2-0.9) 10^3/u L Eos # (Auto) (0.0-0.8) 10^3/u L Baso # (Auto) (0.0-0.1) 10^3/u L Nucleated RBC % (a uto) % Nucleated RBCs # /100WBC Sodium (136-145) mmol/L Potassium (3.5-5.1) mmol/L Chloride (98-107) mmol/L Carbon Dioxide (22-29) mmol/L Anion Gap (5-19) BUN (6-20) mg/dL Creatinine (0.5-0.9) mg/dL GFR Calculation (90-130) mL/min Glucose (65-115) mg/dL Calculated Osmolal ity (285-295) mOsm/k g Lactate (0.5-2.2) mmol/L Calcium (8.5-10.5) mg/dL Total Bilirubin (0.15-1.2) mg/dL AST (0-32) U/L ALT (0-33) U/L Alkaline Phosphata se (35-105) IU/L Creatine Kinase (26-192) U/L Troponin T Gen 5 n g/L 6 (0-10) ng/mL Total Protein (6.6-8.7) g/dL Albumin (3.5-5.2) g/dL Globulin (1.3-4.6) g/dL TSH (0.27-4.20) uIU/ mL Urine Color (Yellow) Urine Appearance (CLEAR) Urine pH (5-7) Ur Specific Gravit y (1.005-1.030) Urine Protein (Negative) Urine Glucose (UA) (Normal) Urine Ketones (Negative) Urine Blood (Negative) Urine Nitrate (Negative) Urine Bilirubin (NEGATIVE) Urine Urobilinogen (Negative) mg/dL Ur Leukocyte Charmaine ase (Negative) Urine Opiates Scre en (Negative) ng/mL Ur Barbiturates Sc reen (Negative) ng/mL Ur Phencyclidine S crn (Negative) ng/mL Ur Amphetamines Sc reen (Negative) ng/mL U Benzodiazepines Scrn (Negative) ng/mL Urine Cocaine Scre en (Negative) ng/mL U Marijuana (THC) Screen (Negative) ng/mL Ethyl Alcohol (0-10) mg/dL Imaging Data ^: Other CT: Radiologist's impression: [address] [place] [address] CT Scan Report Signed Patient: Estefany Foss Unit #: [id number] : 1995 Age/Sex: 23 / F ADM Date: 05/30/19 Loc: ER Room/Bed: Attending Dr: Ordering Provider/Ordering MD: Rigoberto Ashley MD, [facility] Date of Service: 05/30/19 Procedure(s): CT abdomen pelvis w con* [id number] Accession Number(s): [id number] Report Number: [id number] PROCEDURE INFORMATION: Exam: CT Abdomen And Pelvis With Contrast Exam date and time: 05/30/2019 9:24 PM Age: 23 years old Clinical indication: Nausea and vomiting; Abdominal pain; Generalized; Additional info: Rlq pain TECHNIQUE: Imaging protocol: Computed tomography of the abdomen and pelvis with intravenous contrast. Total DLP: 1670.1 mGy-cm Radiation optimization: All CT scans at this facility use at least one of these dose optimization techniques: automated exposure control; mA and/or kV adjustment per patient size (includes targeted exams where dose is matched to clinical indication); or iterative reconstruction. Contrast material: OMNI 300; Contrast volume: 95 ml; Contrast route: 20G; COMPARISON: No relevant prior studies available. FINDINGS: Liver: Unremarkable. No mass. Gallbladder and bile ducts: Normal. No calcified stones. No ductal dilation. Pancreas: Normal. No ductal dilation. Spleen: Normal. No splenomegaly. Adrenals: Normal. No mass. Kidneys and ureters: Normal. No hydronephrosis. Stomach and bowel: Nonobstructive bowel pattern. No evidence for adynamic or reactive ileus. No evidence for diverticulitis. Appendix: The appendix is visualized and is noninflamed. Intraperitoneal space: Examination reveals mild mesenteritis with mesenteric lymphadenitis. Vasculature: The abdominal aorta is nonaneurysmal. Lymph nodes: Unremarkable. No enlarged lymph nodes. Bladder: Unremarkable as visualized. Reproductive: Examination reveals a simple left ovarian cyst maximum dimensions 39 mm x 25 mm x 31 mm. Recommend US follow-up in 6-12 weeks. Small, less than 1 cm, right ovarian follicle cysts. Bones/joints: No visible active musculoskeletal pathology. Soft tissues: Unremarkable. Other findings: Lung bases clear. CT/CT abdomen pelvis w con* [id number] IMPRESSION: 1. Mild mesenteritis with mesenteric lymphadenitis. 2. The appendix is visualized and is noninflamed. 3. Examination reveals a simple left ovarian cyst maximum dimensions 39 mm x 25 mm x 31 mm. Recommend US follow-up in 6-12 weeks. Radiation Dose CTDIVOL = (mGy): DLP = 1670.1 (mGy-cm) US: Radiologist's impression: [address] [address] Ultrasound Report Signed Patient: Estefany Foss Unit #: [id number] : 1995 Age/Sex: 23 / F ADM Date: 05/31/19 Loc: ER Room/Bed: Attending Dr: Ordering Provider/Ordering MD: Teri Rocha NP Date of Service: 05/31/19 Procedure(s): US renal BI* [id number] Accession Number(s): [id number] Report Number: [id number] WS: [id number] RENAL ULTRASOUND REASON FOR EXAM: flank pain TECHNIQUE: Grayscale and Doppler ultrasound examination of the kidneys. FINDINGS: Right kidney: Right kidney measures 10.7 cm x 5.4 cm x 3.8 cm. Cortex measured 1.38 cm Left kidney: Left kidney measures 11.4 cm x 4.7 cm x 3.9 cm. Techs measured 1.16 cm. Neither kidney shows hydronephrosis or stones. US/US renal BI* [id number] IMPRESSION: Normal bilateral kidneys studies. Dictated By: Sushant Dorsey DO Signed By: Sushant Dorsey DO Signed Date/Time: 05/31/19 1544 DD/ 1542 Discharge Plan Discharge Patient Disposition: Admitted As Inpatient Admit Provider: Tammy Lopez Clinical Impression: Tachycardia Condition: Stable Referrals: Tessa Vega FNP-C [Primary Care Provider] - Discharge Date/Time: 06/01/19 00:06 Sign Out Sign Out Data: Patient Sign Out occurred on 05/31/19 at 17:18. Patient's care was discussed, and care was transferred from to RAVEN Koroma. Coding Level of Care Code ED General Laborer for Chg Fwd Exam Comprehensive Documented by User: RAVEN Koroma 06/01/19 00:41 HPI - Abdominal Pain General: Chief Complaint: Abdominal Pain Stated Complaint: back and abd pain, h/a Time Seen by Provider: 05/31/19 14:34 Source: patient and family Mode of arrival: ambulatory Limitations: no limitations History of Present Illness: HPI narrative: Patient is a 23-year-old female who returns to the emergency department for reevaluation after being seen here yesterday. Patient tells me approximately a week ago she began her menstrual cycle after not having one for 5 years due to being on various controls and Depo-Provera. She states the period was extremely heavy. Patient states 2 days after the bleeding started she became nauseous and had a few episodes of vomiting. She reports bleeding has subsided but since then has started experiencing lightheadedness, dizziness, back and side pain, along with a headache. She states she has had a fever of 100.1 several days ago. She was initially seen in urgent care yesterday and referred here for evaluation. Her evaluation here ended with her being discharged and a diagnosis of mesenteric adenitis. She is returning due to the dizziness and shortness of breath as well as continued pain. Patient is noted to be substantially tachycardic with any form of exertion (i.e walking to the bathroom). Patient is not a smoker. She has no cancer or recent surgical history. She does tell me about 2 to 3 weeks ago she had a plane ride from [place]. She has not noticed any lower extremity swelling. No cough/hemoptysis. She denies urinary symptoms. No vaginal discharge, odor, new sexual partners. PFS ED PFSH: Social History Smoking and tobacco status: never smoked Physical Exam Resp: COMMON NORMALS: normal respiratory effort and clear to auscultation bilaterally AUSCULTATION: clear to auscultation bilaterally Cardio: COMMON NORMALS: regular rhythm RATE: tachycardic RHYTHM: regular rhythm GI: COMMON NORMALS: normal to inspection, nondistended, normoactive bowel sounds, soft to palpation, no hepatosplenomegaly and no masses PALPATION: Yes soft, Yes tender (lower abdomen ) and Yes no hepatosplenomegaly Extremity: COMMON NORMALS: normal to inspection GENERAL: No calf tenderness and No edema Skin: COMMON NORMALS: no rashes or lesions noted GENERAL SKIN EXAM: no rashes or lesions noted Course Vital Signs: Vital signs: Vital Signs Temperature 98.1 F 06/01/19 00:01 Pulse Rate 92 06/01/19 00:01 Respiratory Rate 20 H 06/01/19 00:01 Blood Pressure 123/81 06/01/19 00:01 Pulse Oximetry 97 06/01/19 00:01 MDM - Abdominal Pain MDM Narrative: Medical decision making narrative: Care for patient was assumed by MARA Enciso. Dr. Ashley aware of patient as he also evaluated her yesterday. Patient continues to remain tachycardic as high as the 140s 150s. Labs do not provide any clues as to why. CT scan of her abdomen yesterday with mesenteric adenitis. She also had a left ovarian cyst. Ultrasound of her pelvis was performed today and found to be normal apart from the cyst. Previous provider had ultrasound of her kidneys due to her back pain-this was normal. Her UA is normal. Given her symptoms and recent plane ride I did go ahead and CTA her chest to evaluate for PE-this was negative. Dr. Ashley is spoken to the hospitalist Dr. Lopez and we will go ahead and admit patient. Lab Data: Labs: Lab Results 05/31/19 05/31/19 05/31/19 Range/Units 15:04 15:04 15:04 WBC 7.2 (4.0-10.0) 10^3/ uL RBC 4.71 (4.1-5.3) 10^6/u L Hgb 14.3 (11.5-15.3) g/dL Hct 44.3 (37.0-47.0) % MCV 94.1 (81-99) fL MCH 30.4 (28.0-34.0) pg MCHC 32.3 (30.0-36.0) g/dL RDW 13.3 (12.1-15.1) % Plt Count 239 (130-400) 10^3/c mm MPV 10.0 (7.4-10.4) fL Neut % (Auto) 82.1 % Lymph % (Auto) 8.3 % [place] % (Auto) 8.8 % Eos % (Auto) 0.0 % Baso % (Auto) 0.4 % Neut # (Auto) 5.9 (1.8-7.7) 10^3/u L Lymph # (Auto) 0.6 L (0.8-4.8) 10^3/u L [place] # (Auto) 0.6 (0.2-0.9) 10^3/u L Eos # (Auto) 0.0 (0.0-0.8) 10^3/u L Baso # (Auto) 0.0 (0.0-0.1) 10^3/u L Nucleated RBC % (a uto) 0 % Nucleated RBCs # 0.0 /100WBC Sodium 138 (136-145) mmol/L Potassium 3.6 (3.5-5.1) mmol/L Chloride 105 (98-107) mmol/L Carbon Dioxide 22 (22-29) mmol/L Anion Gap 14.6 (5-19) BUN 13 (6-20) mg/dL Creatinine 0.8 (0.5-0.9) mg/dL GFR Calculation 88.1 L (90-130) mL/min Glucose 106 (65-115) mg/dL Calculated Osmolal ity 283 L (285-295) mOsm/k g Lactate 0.8 (0.5-2.2) mmol/L Calcium 9.1 (8.5-10.5) mg/dL Total Bilirubin 0.5 (0.15-1.2) mg/dL AST 20 (0-32) U/L ALT 26 (0-33) U/L Alkaline Phosphata se 90 (35-105) IU/L Creatine Kinase (26-192) U/L Troponin T Gen 5 n g/L (0-10) ng/mL Total Protein 7.2 (6.6-8.7) g/dL Albumin 3.8 (3.5-5.2) g/dL Globulin 3.4 (1.3-4.6) g/dL TSH (0.27-4.20) uIU/ mL Urine Color (Yellow) Urine Appearance (CLEAR) Urine pH (5-7) Ur Specific Gravit y (1.005-1.030) Urine Protein (Negative) Urine Glucose (UA) (Normal) Urine Ketones (Negative) Urine Blood (Negative) Urine Nitrate (Negative) Urine Bilirubin (NEGATIVE) Urine Urobilinogen (Negative) mg/dL Ur Leukocyte Charmaine ase (Negative) Urine Opiates Scre en (Negative) ng/mL Ur Barbiturates Sc reen (Negative) ng/mL Ur Phencyclidine S crn (Negative) ng/mL Ur Amphetamines Sc reen (Negative) ng/mL U Benzodiazepines Scrn (Negative) ng/mL Urine Cocaine Scre en (Negative) ng/mL U Marijuana (THC) Screen (Negative) ng/mL Ethyl Alcohol (0-10) mg/dL 05/31/19 05/31/19 05/31/19 Range/Units 16:55 16:55 22:05 WBC (4.0-10.0) 10^3/ uL RBC (4.1-5.3) 10^6/u L Hgb (11.5-15.3) g/dL Hct (37.0-47.0) % MCV (81-99) fL MCH (28.0-34.0) pg MCHC (30.0-36.0) g/dL RDW (12.1-15.1) % Plt Count (130-400) 10^3/c mm MPV (7.4-10.4) fL Neut % (Auto) % Lymph % (Auto) % [place] % (Auto) % Eos % (Auto) % Baso % (Auto) % Neut # (Auto) (1.8-7.7) 10^3/u L Lymph # (Auto) (0.8-4.8) 10^3/u L [place] # (Auto) (0.2-0.9) 10^3/u L Eos # (Auto) (0.0-0.8) 10^3/u L Baso # (Auto) (0.0-0.1) 10^3/u L Nucleated RBC % (a uto) % Nucleated RBCs # /100WBC Sodium (136-145) mmol/L Potassium (3.5-5.1) mmol/L Chloride (98-107) mmol/L Carbon Dioxide (22-29) mmol/L Anion Gap (5-19) BUN (6-20) mg/dL Creatinine (0.5-0.9) mg/dL GFR Calculation (90-130) mL/min Glucose (65-115) mg/dL Calculated Osmolal ity (285-295) mOsm/k g Lactate (0.5-2.2) mmol/L Calcium (8.5-10.5) mg/dL Total Bilirubin (0.15-1.2) mg/dL AST (0-32) U/L ALT (0-33) U/L Alkaline Phosphata se (35-105) IU/L Creatine Kinase 56 (26-192) U/L Troponin T Gen 5 n g/L (0-10) ng/mL Total Protein (6.6-8.7) g/dL Albumin (3.5-5.2) g/dL Globulin (1.3-4.6) g/dL TSH 1.37 (0.27-4.20) uIU/ mL Urine Color Yellow (Yellow) Urine Appearance Clear (CLEAR) Urine pH 5 (5-7) Ur Specific Gravit y 1.015 (1.005-1.030) Urine Protein Neg (Negative) Urine Glucose (UA) Norm (Normal) Urine Ketones Negative (Negative) Urine Blood Neg (Negative) Urine Nitrate Negative (Negative) Urine Bilirubin Neg (NEGATIVE) Urine Urobilinogen Norm (Negative) mg/dL Ur Leukocyte Charmaine ase Negative (Negative) Urine Opiates Scre en Positive H (Negative) ng/mL Ur Barbiturates Sc reen Negative (Negative) ng/mL Ur Phencyclidine S crn Negative (Negative) ng/mL Ur Amphetamines Sc reen Negative (Negative) ng/mL U Benzodiazepines Scrn Negative (Negative) ng/mL Urine Cocaine Scre en Negative (Negative) ng/mL U Marijuana (THC) Screen Negative (Negative) ng/mL Ethyl Alcohol < 10 (0-10) mg/dL 05/31/19 Range/Units 22:05 WBC (4.0-10.0) 10^3/ uL RBC (4.1-5.3) 10^6/u L Hgb (11.5-15.3) g/dL Hct (37.0-47.0) % MCV (81-99) fL MCH (28.0-34.0) pg MCHC (30.0-36.0) g/dL RDW (12.1-15.1) % Plt Count (130-400) 10^3/c mm MPV (7.4-10.4) fL Neut % (Auto) % Lymph % (Auto) % [place] % (Auto) % Eos % (Auto) % Baso % (Auto) % Neut # (Auto) (1.8-7.7) 10^3/u L Lymph # (Auto) (0.8-4.8) 10^3/u L [place] # (Auto) (0.2-0.9) 10^3/u L Eos # (Auto) (0.0-0.8) 10^3/u L Baso # (Auto) (0.0-0.1) 10^3/u L Nucleated RBC % (a uto) % Nucleated RBCs # /100WBC Sodium (136-145) mmol/L Potassium (3.5-5.1) mmol/L Chloride (98-107) mmol/L Carbon Dioxide (22-29) mmol/L Anion Gap (5-19) BUN (6-20) mg/dL Creatinine (0.5-0.9) mg/dL GFR Calculation (90-130) mL/min Glucose (65-115) mg/dL Calculated Osmolal ity (285-295) mOsm/k g Lactate (0.5-2.2) mmol/L Calcium (8.5-10.5) mg/dL Total Bilirubin (0.15-1.2) mg/dL AST (0-32) U/L ALT (0-33) U/L Alkaline Phosphata se (35-105) IU/L Creatine Kinase (26-192) U/L Troponin T Gen 5 n g/L 6 (0-10) ng/mL Total Protein (6.6-8.7) g/dL Albumin (3.5-5.2) g/dL Globulin (1.3-4.6) g/dL TSH (0.27-4.20) uIU/ mL Urine Color (Yellow) Urine Appearance (CLEAR) Urine pH (5-7) Ur Specific Gravit y (1.005-1.030) Urine Protein (Negative) Urine Glucose (UA) (Normal) Urine Ketones (Negative) Urine Blood (Negative) Urine Nitrate (Negative) Urine Bilirubin (NEGATIVE) Urine Urobilinogen (Negative) mg/dL Ur Leukocyte Charmaine ase (Negative) Urine Opiates Scre en (Negative) ng/mL Ur Barbiturates Sc reen (Negative) ng/mL Ur Phencyclidine S crn (Negative) ng/mL Ur Amphetamines Sc reen (Negative) ng/mL U Benzodiazepines Scrn (Negative) ng/mL Urine Cocaine Scre en (Negative) ng/mL U Marijuana (THC) Screen (Negative) ng/mL Ethyl Alcohol (0-10) mg/dL Imaging Data ^: CTA PE protocol : Radiologist's impression: [place] [address] CT Scan Report Signed Patient: Estefany Foss Unit #: [id number] : 1995 Age/Sex: 23 / F ADM Date: 05/31/19 Loc: ER Room/Bed: Attending Dr: Ordering Provider/Ordering MD: Mona Moss Date of Service: 05/31/19 Procedure(s): CT angio chest PE protcl [id number] Accession Number(s): [id number] Report Number: [id number] PROCEDURE INFORMATION: Exam: CT Angiography Chest With Contrast Exam date and time: 05/31/2019 7:37 PM Age: 23 years old Clinical indication: Shortness of breath and other: Signs and symptoms; Additional info: SOB, tachycardia, recent travel TECHNIQUE: Imaging protocol: Computed tomographic angiography of the chest with intravenous contrast. 3D rendering: MIP and/or 3D reconstructed images were created by the technologist. Total DLP: 542.22 mGy-cm Radiation optimization: All CT scans at this facility use at least one of these dose optimization techniques: automated exposure control; mA and/or kV adjustment per patient size (includes targeted exams where dose is matched to clinical indication); or iterative reconstruction. Contrast material: OMNI 350; Contrast volume: 95 ml; Contrast route: IV; COMPARISON: CR XR chest 2V* [id number] 04/13/2019 2:56 PM FINDINGS: Pulmonary arteries: No visible pulmonary embolism/pulmonary arterial thrombus. Aorta: The thoracic aorta is nonaneurysmal. No visible intimal flap or dissection. Lungs: No visible active interstitial or alveolar airspace disease. Pleural space: No active pleural based disease or pleural effusion. Heart: Unremarkable. No cardiomegaly. No pericardial effusion. Lymph nodes: Unremarkable. No enlarged lymph nodes. Bones/joints: No visible active musculoskeletal pathology. Soft tissues: Unremarkable. CT/CT angio chest PE protcl [id number] IMPRESSION: No visible pulmonary embolism. Radiation Dose CTDIVOL = (mGy): DLP = 542.22 (mGy-cm) Dictated By: Frank Toledo Signed By: Frank Toledo Signed Date/Time: 05/31/192130 DD/ 28 US pelvis: Radiologist's impression: [address] [address] Ultrasound Report Signed Patient: Estefany Foss Unit #: [id number] : [id number] Age/Sex: 23 / F ADM Date: 05/31/19 Loc: ER Room/Bed: Attending Dr: Ordering Provider/Ordering MD: Mona Moss Date of Service: 05/31/19 Procedure(s): US transvaginal [id number] Accession Number(s): [id number] Report Number: [id number] PROCEDURE INFORMATION: Exam: US Pelvis, Transvaginal Exam date and time: 05/31/2019 7:19 PM Age: 23 years old Clinical indication: Pain; Other: Back and pelvis; Additional info: Pain; Ovarian cyst TECHNIQUE: Imaging protocol: Real-time transvaginal pelvic ultrasound with image documentation. Transvaginal imaging was used for better evaluation of the endometrium and adnexa. COMPARISON: US renal BI* [id number] 05/31/2019 3:10 PM FINDINGS: Uterus/cervix: Anteverted nongravid nuliparous appearing uterus dimensions approximately 7.5 cm x 3.6 cm by 3.8 cm. Normal endometrial stripe less than 4 mm. No endometrial fluid. Normal transition zone. Right adnexa: Right ovarian dimensions 3.2 cm x 1.5 cm x 1.9 cm. Positive arterial flow to both color Doppler assessment. Numerous small follicle cysts. Left adnexa: Left ovarian dominant cyst dimensions 3.9 cm by 2.1 cm x 3.1 cm. Few peripheral internal daughter cysts. Numerous small left follicle cysts. Left ovarian dimensions approximately 4.2 cm x 2.8 cm by 3.9 cm. Positive arterial flow to both color Doppler assessment. Additional findings: Examination confirms the CT abdomen and pelvis examination findings of 05/30/2019. Small sliver of fluid in the cul-de-sac. US/US transvaginal [id number] IMPRESSION: Left ovarian dominant cyst dimensions 3.9 cm by 2.1 cm x 3.1 cm. Few peripheral internal daughter cysts. Recommend follow-up ultrasound after 2 menstrual periods. Dictated By: Frank Toledo Signed By: Frank Toledo Signed Date/Time: 05/31/192005 DD/ 03 Discharge Plan Discharge Patient Disposition: Admitted As Inpatient Admit Provider: Tammy Lopez Clinical Impression: Tachycardia Condition: Stable Referrals: Tessa Vega FNP-C [Primary Care Provider] - Discharge Date/Time: 06/01/19 00:06 Sign Out Sign Out Data: Patient Sign Out occurred on 05/31/19 at 17:18. Patient's care was discussed, and care was transferred from to RAVEN Koroma. Coding Level of Care Code ED General Laborer for Chg Fwd Exam Comprehensive
--- NOTE | 2019-05-31 14:55 | US_ITS ---
WS: [id number] RENAL ULTRASOUND REASON FOR EXAM: flank pain TECHNIQUE: Grayscale and Doppler ultrasound examination of the kidneys. FINDINGS: Right kidney: Right kidney measures 10.7 cm x 5.4 cm x 3.8 cm. Cortex measured 1.38 cm Left kidney: Left kidney measures 11.4 cm x 4.7 cm x 3.9 cm. Techs measured 1.16 cm. Neither kidney shows hydronephrosis or stones. US/US renal BI* [id number] IMPRESSION: Normal bilateral kidneys studies.
[2019-05-31] MEDS: ondansetron 2 mg/ML SDV 2 mL 4 MG IVP (15:08)
[2019-05-31 15:12] LABS: Basophils % 0.4 %; Hematocrit 44.3 % (37.0-47.0); Hemoglobin 14.3 g/dL (11.5-15.3); Lymphocytes # 0.6 10^3/uL (0.8-4.8); Lymphocytes % 8.3 %; Mean Corpuscular HGB Conc 32.3 g/dL (30.0-36.0); Mean Corpuscular Hemoglobin 30.4 pg (28.0-34.0); Mean Corpuscular Volume 94.1 fL (81-99); Monocytes # 0.6 10^3/uL (0.2-0.9); Monocytes % 8.8 %; Neutrophils # 5.9 10^3/uL (1.8-7.7); Neutrophils % 82.1 %; Nucleated Red Blood Cells % 0 %; Platelet Count 239 10^3/cmm (130-400); Red Blood Count 4.71 10^6/uL (4.1-5.3); Red Cell Distribution Width 13.3 % (12.1-15.1); White Blood Count 7.2 10^3/uL (4.0-10.0)
[2019-05-31 15:18] VITALS: RESP 18
[2019-05-31] MEDS: morphine 4 mg/mL SDV 1 mL 2 MG IVP (15:18)
[2019-05-31] MEDS: sodium chloride 0.9% 1,000 ML 999 ML IV (15:22)
[2019-05-31 15:30] LABS: Alanine Aminotransferase 26 U/L (0-33); Albumin Level 3.8 g/dL (3.5-5.2); Alkaline Phosphatase 90 IU/L (35-105); Anion Gap 14.6 (5-19); Aspartate Amino Transferase 20 U/L (0-32); Blood Urea Nitrogen 13 mg/dL (6-20); Calcium 9.1 mg/dL (8.5-10.5); Carbon Dioxide 22 mmol/L (22-29); Chloride 105 mmol/L (98-107); Globulin 3.4 g/dL (1.3-4.6); Glomerular Filtration Rate 88.1 mL/min (90-130); Glucose 106 mg/dL (65-115); Osmolality Calculated 283 mOsm/kg (285-295); Potassium 3.6 mmol/L (3.5-5.1); Sodium 138 mmol/L (136-145); Total Bilirubin 0.5 mg/dL (0.15-1.2); Total Protein 7.2 g/dL (6.6-8.7)
[2019-05-31 15:38] LABS: Lactate (Lactic Acid level) 0.8 mmol/L (0.5-2.2)
[2019-05-31] MEDS: cefTRIAXone 1,000 MG in sodium chloride 0.9% (plus) 50 ML 100 MG IV (16:15)
[2019-05-31 17:15] LABS: Amphetamines Screen Urine Negative (Negative); Barbiturates Screen Urine Negative (Negative); Benzodiazepines Screen Urine Negative (Negative); Cocaine Screen Urine Negative (Negative); Opiate Screen Urine Positive (Negative); PCP Screen Urine Negative (Negative); THC Screen Urine Negative (Negative)
[2019-05-31 17:25] VITALS: BP 123/86; PULSE 111; RESP 18; O2SAT 96
--- NOTE | 2019-05-31 17:25 | PC.NURSE ---
Report received from JESÚS Champagne at this time. Mahi reports assessment, IV started, meds given, and EKG performed on patient.
[2019-05-31 18:35] VITALS: BP 111/79; BP 114/73; BP 139/69; PULSE 117; PULSE 128; PULSE 129
--- NOTE | 2019-05-31 18:45 | USR_ITS ---
PROCEDURE INFORMATION: Exam: US Pelvis, Transvaginal Exam date and time: 05/31/2019 7:19 PM Age: 23 years old Clinical indication: Pain; Other: Back and pelvis; Additional info: Pain; Ovarian cyst TECHNIQUE: Imaging protocol: Real-time transvaginal pelvic ultrasound with image documentation. Transvaginal imaging was used for better evaluation of the endometrium and adnexa. COMPARISON: US renal BI* [id number] 05/31/2019 3:10 PM FINDINGS: Uterus/cervix: Anteverted nongravid nuliparous appearing uterus dimensions approximately 7.5 cm x 3.6 cm by 3.8 cm. Normal endometrial stripe less than 4 mm. No endometrial fluid. Normal transition zone. Right adnexa: Right ovarian dimensions 3.2 cm x 1.5 cm x 1.9 cm. Positive arterial flow to both color Doppler assessment. Numerous small follicle cysts. Left adnexa: Left ovarian dominant cyst dimensions 3.9 cm by 2.1 cm x 3.1 cm. Few peripheral internal daughter cysts. Numerous small left follicle cysts. Left ovarian dimensions approximately 4.2 cm x 2.8 cm by 3.9 cm. Positive arterial flow to both color Doppler assessment. Additional findings: Examination confirms the CT abdomen and pelvis examination findings of 05/30/2019. Small sliver of fluid in the cul-de-sac. US/US transvaginal [id number] IMPRESSION: Left ovarian dominant cyst dimensions 3.9 cm by 2.1 cm x 3.1 cm. Few peripheral internal daughter cysts. Recommend follow-up ultrasound after 2 menstrual periods.
[2019-05-31 18:55] LABS: Add Urine Microscopic? NO
[2019-05-31 19:06] LABS: Bilirubin Urine Neg (NEGATIVE); Blood Urine Neg (Negative); Glucose Urine UA Norm (Normal); Ketones Urine Negative (Negative); Leukocyte Esterase Urine Negative (Negative); Nitrate Urine Negative (Negative); Protein Urine Neg (Negative); Specific Gravity, Urine 1.015 (1.005-1.030); Urine Appearance Clear (CLEAR); Urine Color Yellow (Yellow); Urobilinogen Urine Norm (Negative); pH Urine 5 (5-7)
--- NOTE | 2019-05-31 19:30 | CTR_ITS ---
PROCEDURE INFORMATION: Exam: CT Angiography Chest With Contrast Exam date and time: 05/31/2019 7:37 PM Age: 23 years old Clinical indication: Shortness of breath and other: Signs and symptoms; Additional info: SOB, tachycardia, recent travel TECHNIQUE: Imaging protocol: Computed tomographic angiography of the chest with intravenous contrast. 3D rendering: MIP and/or 3D reconstructed images were created by the technologist. Total DLP: 542.22 mGy-cm Radiation optimization: All CT scans at this facility use at least one of these dose optimization techniques: automated exposure control; mA and/or kV adjustment per patient size (includes targeted exams where dose is matched to clinical indication); or iterative reconstruction. Contrast material: OMNI 350; Contrast volume: 95 ml; Contrast route: IV; COMPARISON: CR XR chest 2V* [id number] 04/13/2019 2:56 PM FINDINGS: Pulmonary arteries: No visible pulmonary embolism/pulmonary arterial thrombus. Aorta: The thoracic aorta is nonaneurysmal. No visible intimal flap or dissection. Lungs: No visible active interstitial or alveolar airspace disease. Pleural space: No active pleural based disease or pleural effusion. Heart: Unremarkable. No cardiomegaly. No pericardial effusion. Lymph nodes: Unremarkable. No enlarged lymph nodes. Bones/joints: No visible active musculoskeletal pathology. Soft tissues: Unremarkable. CT/CT angio chest PE protcl [id number] IMPRESSION: No visible pulmonary embolism. Radiation Dose CTDIVOL = (mGy): DLP = 542.22 (mGy-cm)
[2019-05-31] MEDS: iohexol 350 mg/mL 100 mL Btl IV (21:04)
[2019-05-31 22:31] LABS: Troponin T (5th) Once 6 ng/mL (0-10)
[2019-05-31 22:37] LABS: Creatine Phosphokinase 56 U/L (26-192); Thyroid Stimulating Hormone 1.37 uIU/mL (0.27-4.20)
[2019-05-31 22:41] LABS: Alcohol Level < 10 mg/dL (0-10)
[2019-05-31 23:16] VITALS: BP 122/74; PULSE 107; RESP 20; O2SAT 97
[2019-05-31] MEDS: sodium chloride 0.9% 1,000 ML 100 ML IV (23:16)
--- NOTE | 2019-05-31 23:34 | P.HP_ITS ---
Providers/Chief Complaint Admitting Physician: Tammy Lopez MD Primary Care Provider: MARA Fermin-Myla Chief Complaint: back and abd pain, h/a History of Present Illness Estefany Foss is a 23 year old female with no significant medical comorbidities who initially presented to the emergency room yesterday with chief complaint of right-sided abdominal pain, headache, nausea, light headedness. She was noted to be tachycardic at the time with heart rate going up to 200 which was attributed to a combination of pain and dehydration. She had last had a period about a week ago. Of note this was her first period in 5 years. She has been on Nexplanon since July 2018 and prior to that had been on other forms of contraception with no bleeding. On evaluation she had RLQ tenderness with suspsicion for appendicitis, however CT abdomen/pelvis showed a normal appendix. It additionally showed a simple left ovarian cyst 39 [id number], mild mesenteritis and mesenteric lymphadenitis. She has 2 episodes of diarrhea today but none yesterday. Renal US shows normal B/L kidneys. B hcg was negative yesterday. Calcium is WNL. She was discharged yesterday after pain control and reassuring imaging, however returned today with simlar complaints. Abdominal pain has since improved however she continued to have headache and nausea with intermittent high HR and palpitations. There is no past h/o similar symptoms. No h/o alcohol consumption. IN er upon presentation HR was sinus tachycardia with max 142, BP has been stable, saturating well on RA. CTA chest was done to r/o PE and was negative for the same. TV USG again showed left ovarian cyst with few peripheral internal daughter cysts. Reported tmax 100.1 yeseterday. H/o influenza URI 4 weeks ago, resolved without any complaints. No abx at the time. No h/o orthopnea, edema, PND. Review of Systems General: Reports: 10 or more systems reviewed and unremarkable except in HPI and below Const: Denies: fever, chills or body aches Eyes: Denies: change in vision, blurry vision or photophobia ENMT: Reports: hoarseness; Denies: throat pain, enlarged tonsils, painful swallowing or nasal congestion Card: Reports: palpitations; Denies: chest pain, irregular heart rhythm, edema, swelling of feet/ankles, lightheadedness, pre-syncope, shortness of breath on exertion or shortness of breath when lying down Resp: Denies: shortness of breath, productive cough, non-productive cough, wheezing, stridor, pain on inspiration, change in phlegm color, coughing up blood or chest congestion GI: Denies: abdominal pain, nausea, vomiting, vomiting blood, coffee grounds in vomit, difficulty swallowing, heartburn/indigestion, diarrhea, constipation, cramping, change in stool character, blood in stool or black tarry stool : Denies: flank pain, difficulty urinating, painful urination, urinary frequency, urinary urgency, urinary hesitancy or blood in urine Musc: Denies: neck pain, back pain, extremity pain, joint swelling, joint warmth or deformity Neuro: Denies: headache, numbness in extremities, weakness in extremities, changes in sensation, difficulty walking, frequent falls, dizziness, vertigo, behavioral changes, slurred speech or seizure-like activity Psych: Denies: anxiety, depression, suicidal ideation or homicidal ideation Endo: Denies: excessive urination, excessive thirst, tired all the time, cold intolerance or hot flashes Peter/Lymph: Denies: easy bruising or easy bleeding Medications/Allergies Allergies Allergy/AdvReac Type Severity Reaction Status Date / Time No Known Allergies Allergy Verified 05/30/19 18:46 PFSH Acute PFSH: Social History Smoking and tobacco status: never smoked Female Reproductive History: Date of last menstrual period: 02/11/19 Vitals/I&O/Wt Last Vital Signs Temp 98.3 F 05/31/19 14:28 Pulse 107 H 05/31/19 23:16 Resp 20 H 05/31/19 23:16 BP 122/74 05/31/19 23:16 Pulse Ox 97 05/31/19 23:16 05/31/19 05/31/19 06/01/19 14:59 22:59 06:59 Intake Total 1050 / 1050 Balance 1050 / 1050 Weight last 48 hrs Weight 105.687 kg Physical Exam Narrative: EXAM NARRATIVE: GEN: Awake, alert and oriented, no acute distress CVS: S1S2 N RS: CTA B/L Abd: Soft, nt/nd , bs+ DIRECTOR OF SECURITIES AND REAL ESTATE: no focal neuro deficits EXT: no peripheral edema, cyanosis or clubbing Data : 05/31/19 15:04 05/31/19 15:04 Micro: Microbiology 05/31/19 15:04 Blood Culture - Preliminary Blood SPECIMEN COLLECTED A&P Assessment and plan (1) Cyst of left ovary: Status: Acute Code(s): N83.202 - Unspecified ovarian cyst, left side (2) Tachycardia: Status: Acute Code(s): R00.0 - Tachycardia, unspecified (3) Acute mesenteric adenitis: Status: Acute Code(s): I88.0 - Nonspecific mesenteric lymphadenitis Additional A&P Information admit to med/surg with telemetry for observation No clear unifying explanation for headache, abdominal pain, nausea, tachycardia at this time Intermittent HR jump to 140-150 in sinus rhythm, does not correlate with pain. Reports HR as high as 200 yesterday at which time she felt light headed and may have passed out . Will observe overnight on telemetry At time of exam HR 90s, holding off on b blockers for now Check TSH, alcohol level Urine drug screen positive for opiates, however after receiving morphine echocardiogram to r/o post viral cardiomyopathy given infleunza 4 weeks ago though suspicion remains low may need event monitor upon discharge Diarrhea- may be related to gastroenteritis. R/o C diff if has more episodes Abdominal pain- may be related to ovarian cysts, ?recent ovulation. CT negative for appendicitis or acute intra abdominal process DVT ppx: low risk, Scd only Full code Attestations Medical Necessity Statement*: anticipate <2 Midnight admission for w/up of tachycardia, management of abdominal pain Coding Level of Care Code Acute Industrial Trainer for Chg Fwd Diagnoses Cyst of left ovary N83.202 Tachycardia R00.0 Acute mesenteric adenitis I88.0
[2019-05-31 23:59] VITALS: BP 122/74; PULSE 94; RESP 18; O2SAT 97
[2019-06-01] VITALS (7 sets, daily range): BP systolic 90–126; BP diastolic 59–83; PULSE 79–96; RESP 16–20; TEMP 36.4–37.1; O2SAT 93–98
[2019-06-01] MEDS: dextrose 5%-sod chloride 0.9% 1,000 ML 75 ML IV ×2 (00:28→15:25)
--- NOTE | 2019-06-01 02:23 | CTR_ITS ---
PROCEDURE INFORMATION: Exam: CT Head Without Contrast Exam date and time: 06/01/2019 2:51 AM Age: 23 years old Clinical indication: Pain; Headache not specified TECHNIQUE: Imaging protocol: Computed tomography of the head without contrast. Total DLP: 845.42 mGy-cm Radiation optimization: All CT scans at this facility use at least one of these dose optimization techniques: automated exposure control; mA and/or kV adjustment per patient size (includes targeted exams where dose is matched to clinical indication); or iterative reconstruction. COMPARISON: No relevant prior studies available. FINDINGS: Brain: No acute intracranial hemorrhage or mass effect. No definite acute infarct by CT. Ventricles: Ventricle size is normal for age. Bones/joints: No definite acute skull fracture. Sinuses: Minimal mucosal thickening in the ethmoid, sphenoid, and maxillary sinuses. Mastoid air cells: No significant acute finding. CT/CT head wo con* [id number] IMPRESSION: 1. No acute intracranial hemorrhage or mass effect. 2. Other findings discussed above. Radiation Dose CTDIVOL = (mGy): DLP = 845.42 (mGy-cm)
[2019-06-01 06:46] LABS: Basophils % 0.6 %; Eosinophils % 0.6 %; Hematocrit 41.4 % (37.0-47.0); Hemoglobin 13.1 g/dL (11.5-15.3); Lymphocytes # 1.2 10^3/uL (0.8-4.8); Lymphocytes % 37.8 %; Mean Corpuscular HGB Conc 31.6 g/dL (30.0-36.0); Mean Platelet Volume 10.1 fL (7.4-10.4); Monocytes # 0.7 10^3/uL (0.2-0.9); Monocytes % 20.6 %; Neutrophils # 1.3 10^3/uL (1.8-7.7); Neutrophils % 39.1 %; Nucleated Red Blood Cells % 0 %; Platelet Count 188 10^3/cmm (130-400); Red Blood Count 4.36 10^6/uL (4.1-5.3); Red Cell Distribution Width 13.4 % (12.1-15.1); White Blood Count 3.2 10^3/uL (4.0-10.0)
[2019-06-01 07:00] LABS: Anion Gap 13.5 (5-19); Blood Urea Nitrogen 9 mg/dL (6-20); Calcium 8.9 mg/dL (8.5-10.5); Carbon Dioxide 24 mmol/L (22-29); Chloride 106 mmol/L (98-107); Glomerular Filtration Rate 88.1 mL/min (90-130); Glucose 104 mg/dL (65-115); Osmolality Calculated 286 mOsm/kg (285-295); Potassium 3.5 mmol/L (3.5-5.1); Sodium 140 mmol/L (136-145)
--- NOTE | 2019-06-01 10:28 | PC.CHAP ---
Pastoral Care Encounter/Spiritual Assessment Type of Contact [] Declined neon sign mechanic visit [] Patient/Family/Request visit [] Outpatient visit [] Follow-up visit [] Physician referral [] Code/Alert [x] Routine visit [] Staff referral [] Actively dying [] Patient sleeping [] Family support [] [] Out of room [] Palliative care [] [] Receiving care in room [] Pre-surgical visit [] Trauma [] Long length of stay [] ICU visit [] Other: Relational/Emotional Strength [x] Patient feels connected with others/family/visitors/staff [] Distress [] Loneliness/isolation [] Abandonment Spirituality of Patient [x] Person of Nataly [x] Attends Amish of their Nataly [] Believes in Prayer [] Reads Bible or Yarsani materials [] There are Spiritual issues to be addressed Director Paid Media Interventions [x] Prayer [x] Active listening [x] Non-anxious presence [] Spiritual/emotional support [] Crisis/trauma care [] Spiritual counseling [] Bereavement support [] Provided bereavement packet [] Provided Bible/devotional materials [] Provided toy/stuffed animal, coloring book to patient or family member [] Provided Communion [] Anointing/[place] [] Salvation [x] Completed spiritual assessment [] Other: Impact on Illness or Injury [] Angry [] Fearful [] Anxious [] Often cries [] Exhaustion [] Unable to work [] Unable to attend congregation [] Unable to walk/stand [] Unable to read [] Unable to drive [] Unable to eat/drink [] Unable to sleep [] Unable to be with family [] Patient intubated [] Other: Summary patient concern Time spent with patient 15 min 1 visitor
[2019-06-01] MEDS: ondansetron 2 mg/ML SDV 2 mL 4 MG IVP (10:31)
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
[2019-06-01] MEDS: ketorolac 30 mg/mL INJ 15 MG IVP (13:37)
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
--- NOTE | 2019-06-01 22:50 | USCV_ITS ---
Estefany Foss Age: 23 Gender: F : 1995 Exam Date: 06/01/2019 12:58 Ordering Phys: Rigoberto Ashley MD [facility] Technologist: Leeroy Richter Exam Location: [facility] [place] Indication: tachycardia BP: 98 / 51 HR: 78 Rhythm: Sinus Technical Quality: Adequate MEASUREMENTS (Male / Female) Normal Values 2D ECHO LV Diastolic Diameter PLAX 4.4 cm 4.2 - 5.9 / 3.9 - 5.3 cm LV Systolic Diameter PLAX 2.4 cm IVS Diastolic Thickness 1.0 cm 0.6 - 1.0 / 0.6 - 0.9 cm IVS Systolic Thickness 1.3 cm LVPW Diastolic Thickness 1.0 cm 0.6 - 1.0 / 0.6 - 0.9 cm LVPW Systolic Thickness 1.1 cm LVOT Diameter 2.0 cm LV Ejection Fraction 2D Teich 76.4 % LV Ejection Fraction MOD 2C 78.7 % LV Ejection Fraction 2C AL 79.3 % LA Diameter 3.1 cm LA Width 4.0 cm LA Height 5.1 cm RA Width 3.9 cm RA Height 5.5 cm Aorta at Sinotubular Diameter 2.6 cm M-MODE LV Diastolic Diameter MM 4.4 cm 4.2 - 5.9 / 3.9 - 5.3 cm LV Systolic Diameter MM 2.7 cm LV Ejection Fraction MM Teich 69.4 % IVS Diastolic Thickness MM 0.9 cm 0.6 - 1.0 / 0.6 - 0.9 cm IVS Systolic Thickness MM 1.2 cm LVPW Diastolic Thickness MM 0.9 cm 0.6 - 1.0 / 0.6 - 0.9 cm LVPW Systolic Thickness MM 1.6 cm RV Diastolic Diameter MM 1.9 cm Aortic Annulus Diameter 2.9 cm LA Ao Ratio MM 1.1 MV E Point Septal Separation 0.5 cm DOPPLER AV Peak Velocity 120.0 cm/s LVOT Peak Velocity 108.0 cm/s AV Area Cont Eq vti 3.4 cm squared AV Area Cont Eq pk 3.0 cm squared MV Area PHT 5.0 cm squared Mitral E to A Ratio 1.0 MV E' Velocity 18.0 cm/s Mitral E to MV E' Ratio 4.1 Mitral E to LV E' Lateral Ratio 3.5 Mitral E to LV E' Septal Ratio 5.0 TR Peak Velocity 134.0 cm/s TR Peak Gradient 7.1 mmHg TV Peak E Velocity 69.0 cm/s Right Atrial Pressure 3.0 mmHg Pulmonary Artery Systolic Pressu 10.2 mmHg PV Peak Velocity 97.0 cm/s FINDINGS Left Ventricle Normal left ventricular size, systolic function and wall thickness, with no regional wall motion abnormalities. Normal left ventricular wall thickness. Normal diastolic filling pattern. Normal LV size and ejection fraction of 65%. Right Ventricle The right ventricle is normal in size and function. Right Atrium The right atrium is normal in size. Left Atrium The left atrium is normal in size. Mitral Valve Structurally normal mitral valve without significant stenosis or prolapse. There is no mitral regurgitation. Aortic Valve Structurally normal aortic valve without significant sclerosis or stenosis. There is no aortic regurgitation. Tricuspid Valve Structurally normal tricuspid valve without significant stenosis or regurgitation. Pulmonary artery systolic pressure is normal. Pulmonic Valve Structurally normal pulmonic valve without significant stenosis. There is no pulmonic regurgitation. Pericardium Normal pericardium without effusion. Aorta Normal ascending aorta dimension. CONCLUSIONS Normal left ventricular size and function with an estimated ejection fraction of 65 % No significant valve abnormalities. There is no pericardial effusion. There are no intracardiac masses. Tierney Monet MD (Electronically Signed) Final Date: 01 June 2019 14:18 S
== END 2019-06-01 16:49 | disposition home or self-care (01) ==
LOC: ER 23:15 → MEDSURG 23:32
PROVIDERS: Family Medicine; Nurse Practitioner Family; Admitting Provider Student in an Organized Health Care Education/Training Program; Emergency Provider Physician Assistant; Family Provider Nurse Practitioner Family; PCP Nurse Practitioner Family; Visit Provider Family Medicine
DX: N83.202 Unspecified ovarian cyst, left side (principal); R00.0 Tachycardia, unspecified; I88.0 Nonspecific mesenteric lymphadenitis; M62.830 Muscle spasm of back
CPT/HCPCS: 12345; 36415; 70450; 71275; 76770; 76830; 80048; 80053; 80306; 80307; 81003; 82550; 83605; 84443; 84484; 85025; 87040; 87493; 93005; 93306; 96360; 96361; 96365; 96367; 96375; 99284; 99285; A9270; G0378; J0696; J1885; J2270; J2405; J7030; Q9967

== ENCOUNTER → 2019-08-29 15:48 | Outpatient (BNVA) | payer OTHER, SELFPAY | PROVIDERS: Family Provider Nurse Practitioner Family; PCP Nurse Practitioner Family; Visit Provider Nurse Practitioner Family | DX: R53.83 Other fatigue (principal); R10.9 Unspecified abdominal pain; E28.2 Polycystic ovarian syndrome | CPT/HCPCS: 80053; 81000; 81025; 82306; 82607; 84443; 85025 ==

== ENCOUNTER → 2019-10-18 11:11 | Outpatient (BNVA) | payer OTHER, SELFPAY | PROVIDERS: Family Provider Nurse Practitioner Family; PCP Nurse Practitioner Family; Visit Provider Emergency Medicine | DX: M25.512 Pain in left shoulder (principal); Z68.37 Body mass index [BMI] 37.0-37.9, adult | CPT/HCPCS: 73030 ==

== ENCOUNTER 2019-11-23 07:02 | Outpatient (CLI) | payer OTHER, SELFPAY ==
--- NOTE | 2019-11-23 07:15 | MR_ITS ---
WS: [id number] MRI LEFT SHOULDER NONCONTRAST TECHNIQUE: Sagittal T2, coronal T1, T2 and proton density imaging. Axial gradient PDE imaging. CLINICAL INFORMATION: S46.212A Strain of muscle, fascia and tendon of other par... COMPARISON: None. FINDINGS: AC joint is normal. Distal clavicle is normal in appearance. Normal supraspinatus and infraspinatus. Normal teres minor. Normal subscapularis. No evidence of high-grade rotator cuff tear. Small amount o f tendinopathy in the distal supraspinatus. Normal biceps tendon in the bicipital groove. Normal turner oid labrum. Normal bony glenoid and bony humerus. Normal visualized soft tissues. MR/MR shoulder LT wo con* [id number] IMPRESSION: 1. Normal AC joint. 2. Rotator cuff is normal in appearance with a small amount of tendinopathy in the distal supraspinatus. 3. No full-thickness rotator cuff tears. 4. Normal biceps tendon in the bicipital groove. 5. No other significant findings.
== END 2019-11-23 07:03 | disposition home or self-care (01) ==
LOC: RADSHAW 07:04
PROVIDERS: PCP Nurse Practitioner Family; Visit Provider Family Medicine
DX: S46.212A Strain of muscle, fascia and tendon of other parts of biceps, left arm, initial encounter (principal); X58.XXXA Exposure to other specified factors, initial encounter
CPT/HCPCS: 73221

== ENCOUNTER 2019-12-20 08:43 | Emergency (ER) | payer OTHER, SELFPAY ==
[2019-12-20 08:50] VITALS: BP 144/82; PULSE 88; RESP 18; TEMP 36.7; O2SAT 98; BMI 35.5
--- NOTE | 2019-12-20 08:50 | XR_ITS ---
WS: [id number] XR shoulder LT min 2V* [id number] REASON FOR EXAM: pain FINDINGS: Normal anatomic alignment. Bony structure of the left shoulder is intact without focal lesion or fracture. Articular intervals of the glenohumeral joint and acromioclavicular joint are well maintained. No soft tissue abnormality identified. XR/XR shoulder LT min 2V* [id number] IMPRESSION: No significant abnormality identified.
--- NOTE | 2019-12-20 08:50 | XR_ITS ---
WS: [id number] XR cervical spine 3V* [id number] REASON FOR EXAM: pain FINDINGS: There is some straightening of the normal lordosis of the cervical spine. On the AP view there is sli ght convexity to the left. Intervertebral disc space intervals are well-maintained. There is normal facet alignment. Normal odontoid. XR/XR cervical spine 3V* [id number] IMPRESSION: Mild alteration in cervical spine alignment which could be due to muscle spasm.
[2019-12-20 08:54] VITALS: PULSE 83; RESP 18; O2SAT 97
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
[2019-12-20 09:41] VITALS: BP 150/94; PULSE 82; RESP 18; O2SAT 98
== END 2019-12-20 09:35 | disposition home or self-care (01) ==
PROVIDERS: Emergency Provider Family Medicine; PCP Family Medicine
DX: M54.12 Radiculopathy, cervical region (principal)
CPT/HCPCS: 12345; 72040; 73030; 99281; 99283

== ENCOUNTER 2020-01-03 07:49 | Outpatient (RCR) | payer OTHER, SELFPAY | END 2020-01-14 23:59 | disposition home or self-care (01) | LOC: SPT 07:49 | PROVIDERS: PCP Nurse Practitioner; Referring Provider Family Medicine Adult Medicine; Visit Provider Family Medicine Adult Medicine | DX: S16.1XXA Strain of muscle, fascia and tendon at neck level, initial encounter (principal); M25.512 Pain in left shoulder; M62.830 Muscle spasm of back | CPT/HCPCS: 97110; 97162 ==

== ENCOUNTER 2020-01-15 06:00 | Outpatient (RCR) | payer OTHER, SELFPAY | END 2020-02-13 23:59 | disposition home or self-care (01) | LOC: SPT 06:00 | PROVIDERS: PCP Nurse Practitioner; Referring Provider Family Medicine Adult Medicine; Visit Provider Family Medicine Adult Medicine | DX: S16.1XXA Strain of muscle, fascia and tendon at neck level, initial encounter (principal); M25.512 Pain in left shoulder; M62.830 Muscle spasm of back | CPT/HCPCS: 97110 ==

== ENCOUNTER → 2020-04-10 09:05 | Outpatient (BNVA) | payer SELFPAY | PROVIDERS: PCP Nurse Practitioner; Visit Provider Nurse Practitioner Women's Health | DX: O26.899 Other specified pregnancy related conditions, unspecified trimester (principal); E28.2 Polycystic ovarian syndrome; R10.9 Unspecified abdominal pain | CPT/HCPCS: 81000 ==

== ENCOUNTER → 2020-04-24 10:56 | Outpatient (BNVA) | payer MEDICAID, SELFPAY | PROVIDERS: PCP Nurse Practitioner; Visit Provider Obstetrics & Gynecology | DX: E28.2 Polycystic ovarian syndrome; Z80.3 Family history of malignant neoplasm of breast; O09.299 Supervision of pregnancy with other poor reproductive or obstetric history, unspecified trimester; O26.899 Other specified pregnancy related conditions, unspecified trimester; R10.9 Unspecified abdominal pain | CPT/HCPCS: 80307; 82950; 84315; 86592; 86762; 86803; 86850; 86900; 87086; 87340; 87806 ==

== ENCOUNTER → 2020-05-14 15:22 | Outpatient (BNVA) | payer MEDICAID, SELFPAY | PROVIDERS: PCP Nurse Practitioner; Visit Provider Obstetrics & Gynecology | DX: Z34.81 Encounter for supervision of other normal pregnancy, first trimester (principal); Z12.4 Encounter for screening for malignant neoplasm of cervix | CPT/HCPCS: 84315; 87491; 87591; 88175 ==

== ENCOUNTER → 2020-06-26 13:45 | Outpatient (BNVA) | payer MEDICAID, SELFPAY | PROVIDERS: PCP Nurse Practitioner; Visit Provider Obstetrics & Gynecology | DX: O98.819 Other maternal infectious and parasitic diseases complicating pregnancy, unspecified trimester; R39.15 Urgency of urination; A74.9 Chlamydial infection, unspecified; Z11.3 Encounter for screening for infections with a predominantly sexual mode of transmission | CPT/HCPCS: 84315; 87086; 87491; 87591 ==

== ENCOUNTER → 2020-07-17 09:47 | Outpatient (BNVA) | payer MEDICAID, SELFPAY | PROVIDERS: PCP Nurse Practitioner; Visit Provider Obstetrics & Gynecology | DX: O98.819 Other maternal infectious and parasitic diseases complicating pregnancy, unspecified trimester (principal); A74.9 Chlamydial infection, unspecified; O44.40 Low lying placenta NOS or without hemorrhage, unspecified trimester; O09.299 Supervision of pregnancy with other poor reproductive or obstetric history, unspecified trimester | CPT/HCPCS: 84315; 87491 ==

== ENCOUNTER → 2020-09-04 13:51 | Outpatient (BNVA) | payer MEDICAID, SELFPAY | PROVIDERS: PCP Nurse Practitioner; Visit Provider Obstetrics & Gynecology | DX: O98.819 Other maternal infectious and parasitic diseases complicating pregnancy, unspecified trimester; A74.9 Chlamydial infection, unspecified | CPT/HCPCS: 82950; 84315; 85027; 87491; 87591 ==

== ENCOUNTER → 2020-09-07 08:25 | Outpatient (BNVA) | payer MEDICAID, SELFPAY | PROVIDERS: PCP Nurse Practitioner; Visit Provider Obstetrics & Gynecology | DX: Z34.81 Encounter for supervision of other normal pregnancy, first trimester (principal) | CPT/HCPCS: 82951; 82952 ==

== ENCOUNTER 2020-10-23 15:20 | Outpatient (CLI) | payer MEDICAID, SELFPAY ==
[2020-10-23] VITALS (10 sets, daily range): BP systolic 110–135; BP diastolic 56–74; PULSE 85–109; RESP 18; TEMP 35.8–36.2; BMI 37.3
[2020-10-23 16:49] LABS: Basophils # 0.1 10^3/uL (0.0-0.1); Basophils % 0.5 %; Eosinophils # 0.1 10^3/uL (0.0-0.8); Eosinophils % 0.7 %; Hematocrit 35.9 % (37.0-47.0); Hemoglobin 12.1 g/dL (11.5-15.3); Lymphocytes # 1.9 10^3/uL (0.8-4.8); Lymphocytes % 18.2 %; Mean Corpuscular HGB Conc 33.7 g/dL (30.0-36.0); Mean Corpuscular Hemoglobin 31.5 pg (28.0-34.0); Mean Corpuscular Volume 93.5 fL (81-99); Mean Platelet Volume 10.8 fL (7.4-10.4); Monocytes # 0.6 10^3/uL (0.2-0.9); Monocytes % 6.1 %; Neutrophils # 7.71 10^3/uL (1.8-7.7); Neutrophils % 73.4 %; Nucleated Red Blood Cells % 0 %; Platelet Count 205 10^3/cmm (130-400); Red Blood Count 3.84 10^6/uL (4.1-5.3); Red Cell Distribution Width 13.1 % (12.1-15.1); White Blood Count 10.5 10^3/uL (4.0-10.0)
[2020-10-23 16:57] LABS: Urine Creatinine 201 mg/dL (28-217)
[2020-10-23 17:00] LABS: Urine Protein Random 21 mg/dL
[2020-10-23] MEDS: HYDROcodone-acetaminophen 5-325 mg Tablet 1 TAB PO (17:07)
[2020-10-23 17:13] LABS: Urine Appearance Clear (CLEAR); Urine Color Yellow (Yellow)
[2020-10-23 17:13] LABS: Alanine Aminotransferase 12 U/L (0-33); Albumin Level 3.6 g/dL (3.5-5.2); Alkaline Phosphatase 122 IU/L (35-105); Anion Gap 15.1 (5-19); Aspartate Amino Transferase 10 U/L (0-32); Blood Urea Nitrogen 7 mg/dL (6-20); Calcium 8.1 mg/dL (8.5-10.5); Carbon Dioxide 20 mmol/L (22-29); Chloride 107 mmol/L (98-107); Glomerular Filtration Rate 149.1 mL/min (90-130); Glucose 77 mg/dL (65-115); Osmolality Calculated 283 mOsm/kg (285-295); Potassium 4.1 mmol/L (3.5-5.1); Sodium 138 mmol/L (136-145); Total Bilirubin 0.3 mg/dL (0.15-1.2); Total Protein 5.6 g/dL (6.6-8.7); Uric Acid 4.1 mg/dL (2.4-5.7)
[2020-10-23 17:14] LABS: Bilirubin Urine 1+ (Negative); Blood Urine 3+ (Negative); Glucose Urine UA Norm (Normal); Ketones Urine Negative (Negative); Leukocyte Esterase Urine Negative (Negative); Nitrate Urine Negative (Negative); Protein Urine Neg (Negative); Urobilinogen Urine 1 mg/dL (Negative); pH Urine 6 (5-7)
[2020-10-23 17:15] LABS: Add Urine Culture? No; Bacteria Urine 1+ /hpf; Mucus Urine 1+ /hpf
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
== END 2020-10-23 18:05 | disposition home or self-care (01) ==
LOC: OPOB 15:26 → OBGYN 15:27
PROVIDERS: PCP Nurse Practitioner; Visit Provider Obstetrics & Gynecology
DX: O26.899 Other specified pregnancy related conditions, unspecified trimester (principal); Z3A.00 Weeks of gestation of pregnancy not specified; R10.9 Unspecified abdominal pain
CPT/HCPCS: 36415; 59025; 80053; 81001; 82570; 84156; 84550; 85025; 87086; 99211

== ENCOUNTER → 2020-10-30 08:46 | Outpatient (BNVA) | payer MEDICAID, SELFPAY | PROVIDERS: PCP Nurse Practitioner; Visit Provider Obstetrics & Gynecology | DX: O98.819 Other maternal infectious and parasitic diseases complicating pregnancy, unspecified trimester (principal); A74.9 Chlamydial infection, unspecified; L03.90 Cellulitis, unspecified; O09.299 Supervision of pregnancy with other poor reproductive or obstetric history, unspecified trimester | CPT/HCPCS: 84315; 87081; 87491 ==

== ENCOUNTER → 2020-11-13 09:59 | Outpatient (BNVA) | payer MEDICAID, SELFPAY | PROVIDERS: PCP Nurse Practitioner; Visit Provider Obstetrics & Gynecology | DX: O09.299 Supervision of pregnancy with other poor reproductive or obstetric history, unspecified trimester; Z3A.00 Weeks of gestation of pregnancy not specified | CPT/HCPCS: 84315; 87635 ==

== ENCOUNTER 2020-11-18 06:36 | Inpatient (IN) | payer MEDICAID, SELFPAY ==
[2020-11-18] VITALS (58 sets, daily range): BP systolic 108–138; BP diastolic 55–92; PULSE 64–108; RESP 16–20; TEMP 35.8–37.1; O2SAT 93–100; BMI 38.0
[2020-11-18] MEDS: dextrose 5%-lactated ringers 1,000 ML 125 ML IV ×2 (07:04→10:04)
[2020-11-18] MEDS: oxytocin 30 UNIT/500 ML BAG IV (07:04)
[2020-11-18 07:57] LABS: Basophils # 0.1 10^3/uL (0.0-0.1); Basophils % 0.5 %; Eosinophils # 0.1 10^3/uL (0.0-0.8); Eosinophils % 0.7 %; Hematocrit 36.9 % (37.0-47.0); Hemoglobin 12.1 g/dL (11.5-15.3); Lymphocytes # 2.4 10^3/uL (0.8-4.8); Lymphocytes % 23.8 %; Mean Corpuscular HGB Conc 32.8 g/dL (30.0-36.0); Mean Corpuscular Hemoglobin 31.5 pg (28.0-34.0); Mean Corpuscular Volume 96.1 fl (81-99); Mean Platelet Volume 11.3 fL (7.4-10.4); Monocytes # 0.6 10^3/uL (0.2-0.9); Monocytes % 5.5 %; Neutrophils % 68.4 %; Nucleated Red Blood Cells % 0 %; Platelet Count 178 10^3/cmm (130-400); Red Blood Count 3.84 10^6/uL (4.1-5.3); White Blood Count 10.1 10^3/uL (4.0-10.0)
[2020-11-18] MEDS: lactated ringers 1,000 ML 999 ML IV (08:55)
--- NOTE | 2020-11-18 09:00 | P.ANESASSM_ITS ---
Pre-Anesthetic Assessment Pre-Anesthetic Assessment: Height/Weight: Height 1.68 m Weight 107.048 kg Temp Pulse Resp BP Pulse Ox 96.5 F L 84 18 122/72 97 11/18/20 08:00 11/18/20 09:59 11/18/20 08:00 11/18/20 09:59 11/18/20 09:54 Preop Diagnosis: IUP Proposed Procedure: labor epidural Was Beta Rocky taken within 24 hours: N/A Was Clonidine taken within 24 hours: N/A Social: Social History: No alcohol and No tobacco Exam: Pre-Anes Outpt Exam: alert, oriented x 3, clear to auscultation bilaterally and regular rate & rhythm Airway: Submandibular: WNL Cervical ROM: WNL MP: 2 Dentition: Full History/ROS: No significant history except as noted Pulmonary: Pulmonary: None reported CV/HEM: CV/HEM: None reported : : None reported Hepatic: Hepatic: None reported GI: GI: None reported Metabolic: Metabolic: None reported Musc/skel: Musc/skel: None reported Neuropsych: Neuropsych: None reported Anesthetic Plan: ASA status: 1 Anesthesia: Anesthesia Evaluation Risk of > 500 ml blood loss (7ml/kg in children): No Meds/Allergies Current Medications: Current Medications Generic Name Dose Route Start Last Admin Trade Name Freq PRN Reason Stop Dose Admin Fentanyl 25 - 100 mcg 11/18/20 06:34 11/18/20 09:19 Fentanyl 50 Mcg/ Ml Inj 2ml IVP 50 mcg Q1H PRN Administration SEVERE PAIN Ropivacaine 200 mg in 100 mls @ 13 mls/hr 11/18/20 06:45 11/18/20 08:54 Naropin Premix EPIDURAL 13 mls/hr .Q7H42M CHASTITY Administration Lactated Ringer's 1,000 mls @ 999 m ls/hr 11/18/20 06:34 11/18/20 08:55 Lactated Ringers IV 999 mls/hr .Q1H1M PRN Administration See label comment s Dextrose/Lactated Ringer's 1,000 mls @ 125 m ls/hr 11/18/20 06:34 11/18/20 07:04 Dextrose 5%-Lact ated Ringers IV 125 mls/hr .Q8H PRN Administration Labor Induction Oxytocin 30 unit in 500 ml s @ 1 mls/hr 11/18/20 06:34 11/18/20 07:04 Pitocin IV 1 milliunit/min .Q24H PRN 1 mls/hr Induction Administration Protocol 1 MILLIUNIT/MIN PFSH Anesthesia PFSH: Medical History Family history of breast cancer in first degree relative No pertinent past medical history Denies diabetes, asthma, hypertension, seizures, DVT/PE. 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 This was diagnosed by a doctor in [place]. Surgical History History of arthroplasty of knee bilateral 2 times--both surgeries were performed in 2012 History of tonsillectomy At the age of 5-no complications Right radial fracture At the age of 7 which was repaired with surgery. Family History Grandmother Breast cancer maternal, diagnosed at age 30. She also had cervical cancer diagnosed at the age of 50. Mother Cancer thyroid cancer diagnosed in her 30s Breast cancer diagnosed at age 27--lump was palpated while patient was breast-feeding and she was diagnosed with cancer. Underwent lumpectomy with radiation and chemotherapy Hypertension Father Diabetes Hyperlipidemia Hypertension Grandfather Diabetes maternal and paternal Hyperlipidemia paternal and maternal Hypertension maternal Denies family history of Colon cancer Ovarian cancer Heart disease Anesthesia complication Stroke Social History Smoking and tobacco status: never smoked Alcohol intake: former Female Reproductive History: Date of last menstrual period: 11/30/19 : 2 Para: 1 Data Anesthesia CBC & Chem 7: 11/18/20 07:50 Other Labs: Laboratory Results - last 48 hr 11/18/20 11/18/20 06:45 07:50 WBC Cancelled 10.1 H Corrected WBC Cancelled RBC Cancelled 3.84 L Hgb Cancelled 12.1 Hct Cancelled 36.9 L MCV Cancelled 96.1 MCH Cancelled 31.5 MCHC Cancelled 32.8 RDW Cancelled 13.0 Plt Count Cancelled 178 MPV Cancelled 11.3 H Gran % Cancelled Neut % (Auto) Cancelled 68.4 Lymph % (Auto) Cancelled 23.8 [place] % (Auto) Cancelled 5.5 Eos % (Auto) Cancelled 0.7 Baso % (Auto) Cancelled 0.5 Neut # (Auto) Cancelled 6.90 Lymph # (Auto) Cancelled 2.4 [place] # (Auto) Cancelled 0.6 Eos # (Auto) Cancelled 0.1 Baso # (Auto) Cancelled 0.1 Absolute Gran (auto) Cancelled Nucleated RBC % (auto) Cancelled 0 Nucleated RBCs # Cancelled 0.0 Cardiac Studies: Holter Monitor 07/03/19
[2020-11-18] MEDS: fentaNYL 50 mcg/mL INJ 2mL IVP (09:19)
--- NOTE | 2020-11-18 10:05 | ANES.PROC ---
Anesthesia Procedures Procedure/Date: 11/18/20 Epidural: Time Out Performed: Yes Consents Signed: Procedure Consent Consent: requested by attending/covering physician Lumbar Level: L3-L4 Epidural position: sitting Epidural procedure: sterile prep of area, 1% lidocaine to numb the area and sterile dressing applied Additional Comments: attempt by myself at L4-5 threading of the catheter twice was very painful so discontinued that and had Danial Velez come and attempt at L3-4 and was successful. lidocaine test dose negative and pump at 13 ml/hr. patient tolerated procedure well
[2020-11-18] MEDS: miSOPROStol 200 mcg Tablet 800 MCG PR (13:13)
--- NOTE | 2020-11-18 13:26 | PM.OPHPUD ---
Labor & Delivery H&P Update Date of Procedure: November 18, 2020 Date H&P Performed: 11/13/20 H&P update information: I have reviewed H&P completed within last 30 days, I have examined patient prior to procedure, No changes to prior documentation and H&P is in [facility] EMR on date indicated Admission Diagnosis: Preop diagnosis: IUP
--- NOTE | 2020-11-18 13:27 | PM.DELIVERY ---
Delivery Note: Date of delivery: November 18, 2020 - PRE-DELIVERY DIAGNOSIS: 25-year-old 2 para 1-0-0-1 at 39 weeks and 1 day gestation Elective induction of labor at term Mild placental abruption GBS negative Chlamydia in the first trimester status post treatment with multiple negative test of cure POST-DELIVERY DIAGNOSIS: Vaginal delivery on 11/18/2020 PROCEDURE: Vaginal delivery on 11/18/2020 ANESTHESIA: Epidural anesthesia DELIVERING PHYSICIAN: Anna Bobo FACOG PRE-DELIVERY COURSE: Ms. Foss is a 25-year-old 2 para 1-0-0-1 at 39 weeks and 1 day who presented to labor and delivery on 11/18/2020 at 6 AM for elective induction of labor. Her immediate care was significant for chlamydia which was treated and she had negative test of cure the most recent at 36 weeks. Covid was negative and GBS was negative. On initial exam she was 4,70 and -2 station. Induction of labor was started with Pitocin titrated to maximum of 20 mIU and with that she started growing comfortable and epidural was placed. tracing was largely category 1 except for occasional variables which resolved with position change. Artificial rupture of membranes was performed at 10:48 AM at which time blood-tinged but otherwise clear fluid drained. A few blood clots came out as well. This raises concern for possible mild abruption. tracing was category 1 at this time and decision was made to proceed with labor. At time of AROM cervix was 6 cm 80% and -2 station and the head was well applied. After artificial rupture of membranes she did have occasional variables which were not recurrent and these usually resolved with position changes. She made rapid cervical change after this and was fully dilated at 12:55 PM. She was set up in lithotomy position ready to push. After she was fully dilated she had more recurrent variables. DELIVERY NOTE: She was set up in lithotomy position and was pushing effectively. She was noted to be +3 station and continued pushing well. The head delivered in FITZ position, nuchal cord x1 was noted and it was reduced prior to delivery of shoulders. The shoulders and rest of the body followed with her next push. The baby's mouth and nose were suctioned and the baby was placed on the mother's belly. Once cord pulsations stopped the cord was clamped and cut. The placenta delivered spontaneously intact with membranes and was discarded. The fundus was noted to be firm and well contracted however the lower uterine segment was boggy. Manual exploration of the uterine cavity showed no defects and no lacerations.. Cytotec 800 mg was placed per rectum and with this and continued uterine massage lower segment tone improved. The vagina and cervix were inspected and no cervical or sulcal lacerations were noted. There is a small labial tear which was repaired with 3 oh SH in a opqnam-ku-shtwn fashion. Good hemostasis and reapproximation was obtained. Baby girl, Linsey Jurado born at 1:03 PM on 11/18/2020 with 9/10, weighing 8 pounds 11 ounces, 3930 g, 21 inches long. Placenta was delivered spontaneously intact with membranes at 1:10 PM.. Cotyledons were intact , centrally inserted umbilical cord with 3 vessels noted. No obvious signs of abruption noted on examination of the placenta Estimated blood loss 350 mL. Complications-none, both baby and mother were left to recover in a stable condition. This documentation was created by [employer] eyeglass lens generator software (known for inherent eyeglass lens generator error). Every effort was made to assure accuracy of eyeglass lens generator. Any obvious errors or omissions should be clarified with the author of the document. Coding Level of Care Code Acute Anatomy And Physiology Instructor for Chg Fwd History History History 2 Term 2 Miscarriages/Ectopic 0 0 Living Children 2 Other History: Sergei 2, Para 2001, x 2 1---> 12/15/2014, female, (Jessica) 9lbs, 3oz, 41 weeks. Vaginal delivery, epidural anesthesia no complications. Delivered by Dr. Anthony at [facility] in [place], [place]. 2---> 11/18/2020, female, Linsey weighing 8 pounds 11 ounces, 39 weeks elective induction. Vag[place]. Bob[place] [facility] Labial tear, epidural. Vaginal bleeding before delivery-possible mild abruption-tracing was reassuring.
[2020-11-18] MEDS: ibuprofen 800 mg tablet PO ×2 (16:02→20:38)
--- NOTE | 2020-11-18 16:33 | PC.NURSE ---
1600 PATIENT UP TO BATHROOM, LEFT LEG STILL ALITTLE WEAK, BUT PT WALKED WITH ASSISTANCE SLOW AND STEADY TO BATHROOM, VOIDED LARGE AMOUNT AND WAS INSTRUCTED ON PERICARE AND THEN MOVED TO OB 8 VIA WHEELCHAIR. ORIENTED TO ROOM, CALL LIGHT AND BED CONTROLS. TOLD HER THAT I WANTED TO HELP HER UP ONCE MORE AND THEN IF SHE DID OK SHE COULD BE UP ON HER OWN. PT VOICED UNDERSTANDING.
[2020-11-19 02:05] LABS: Hematocrit 36.9 % (37.0-47.0); Hemoglobin 12.2 g/dL (11.5-15.3); Mean Corpuscular HGB Conc 33.1 g/dL (30.0-36.0); Mean Corpuscular Hemoglobin 31.3 pg (28.0-34.0); Mean Corpuscular Volume 94.6 fl (81-99); Mean Platelet Volume 11.2 fL (7.4-10.4); Platelet Count 193 10^3/cmm (130-400); Red Cell Distribution Width 13.2 % (12.1-15.1); White Blood Count 16.1 10^3/uL (4.0-10.0)
[2020-11-19 03:30] VITALS: BP 115/74; PULSE 70; RESP 16; O2SAT 97
--- NOTE | 2020-11-19 08:03 | ANE.PACU2 ---
Inpatient post-anesthesia follow up: Airway intact: Yes Vital signs: Temperature 98.0 F Pulse Rate 70 Respiratory Rate 16 Blood Pressure 115/74 Pulse Oximetry 97 Oxygen Delivery Me thod Room Air Oxygen Flow Rate 10 Fraction of Inspir ed Oxygen Hydration adequate: Yes Nausea and vomiting: No Pain level: 2 Mental status: Baseline
[2020-11-19] MEDS: ibuprofen 800 mg tablet PO ×2 (08:54→14:28)
[2020-11-19] MEDS: prenatal vitamin Capsule 1 CAP PO (08:54)
[2020-11-19] MEDS: docusate sodium 100 mg Capsule PO (08:54)
[2020-11-19 10:23] VITALS: BP 114/73; PULSE 73; RESP 16; TEMP 36.9; O2SAT 95
--- NOTE | 2020-11-19 11:53 | PM.DCS ---
Discharge Providers Date of Admission: 11/18/20 06:36 Date of Discharge: November 19, 2020 Attending Provider at Admission: Anna Cespedes MD Attending Provider at Discharge: Anna Cespedes MD Primary Care Provider: GREY Canseco Diagnoses at Discharge Discharge Diagnosis (1) state: Status: Acute Reason for Visit Reason for Visit: Induction Hospital Course Hospital Course The patient was admitted for induction at term. she had spontaneous delivery of a term infant. She did well and was ready for discharge on day #1. Physical Exam Narrative: EXAM NARRATIVE: The patient is doing well this morning. No concerns. tolerating a regular diet. ambulating well. . Const: COMMON NORMALS: no acute distress, average body habitus, patient oriented x3, no limitations, healthy appearing, alert and well nourished GENERAL APPEARANCE: cooperative, comfortable, well kempt and well developed ORIENTATION/CONSCIOUSNESS: Yes awake, Yes oriented to person, Yes oriented to place and Yes oriented to time Resp: COMMON NORMALS: normal respiratory effort EFFORT & INSPECTION: Yes able to speak in complete sentences GI: COMMON NORMALS: Soft to palpation and non-tender PALPATION: Yes Soft to palpation Extremity: COMMON NORMALS: normal to inspection, no clubbing, cyanosis or edema and no calf tenderness Neuro: COMMON NORMALS: patient oriented x3 SENSORIUM/ORIENTATION: Yes alert, Yes oriented to person, Yes oriented to place and Yes oriented to time Psych: APPEARANCE: Yes well kempt Urinary Catheter Management^: Soares: Cath Placed During This Visit: yes Urinary Catheter Date of Insertion: 11/18/20 Urinary Catheter Time of Insertion: 10:00 Discharge Data Data Completed and Pending: Labs from last 24 hours 11/19/20 01:40 WBC 16.1 H RBC 3.90 L Hgb 12.2 Hct 36.9 L MCV 94.6 MCH 31.3 MCHC 33.1 RDW 13.2 Plt Count 193 MPV 11.2 H Vitals: Last Vital Signs Temp 98.5 F 11/19/20 10:23 Pulse 73 11/19/20 10:23 Resp 16 11/19/20 10:23 BP 114/73 11/19/20 10:23 Pulse Ox 95 11/19/20 10:23 Discharge Plan Discharge Patient Disposition: Home Condition: Stable Prescriptions: Continued prenat.vits,lucero,dde-kqck-lmity Tablet 1 tab PO DAILY RF: 0 Discharge Orders: Discharge Order (Routine); Ordered 11/19/20 Ordered By: Nadine Luevnao Patient Instructions: Opioid Safety Discharge Attestations Time Spent in Discharge Care*: less than 30 min Quality Metrics Clinical Quality Measures During this hospital stay, did patient experience: None Coding Level of Care Code Acute [facility] note Diagnoses state Z39.2
[2020-11-19] MEDS: lanolin oint 7 gm 1 APPLIC TOPICAL (14:28)
[2020-11-19] MEDS: benzocaine-menthol 78 gm Canister 1 SPRAY TOPICAL (14:28)
[2020-11-19 14:29] VITALS: BP 115/72; PULSE 80; RESP 16; TEMP 36.8; O2SAT 98
[2020-11-19 14:56] VITALS: BP 115/72; PULSE 80; RESP 16; TEMP 36.8; O2SAT 98
== END 2020-11-19 14:45 | disposition home or self-care (01) | DRG 807 ==
LOC: OPOB 08:56 → OBGYN 08:56
PROVIDERS: Admitting Provider Obstetrics & Gynecology; PCP Nurse Practitioner; Visit Provider Obstetrics & Gynecology
DX: O45.8X3 Other premature separation of placenta, third trimester (principal); Z37.0 Single live birth; O69.81X0 Labor and delivery complicated by cord around neck, without compression, not applicable or unspecified; Z3A.39 39 weeks gestation of pregnancy; Z86.19 Personal history of other infectious and parasitic diseases
CPT/HCPCS: 36415; 51702; 59025; 59409; 85025; 85027; 96374; 99211; J2795; J3010

== ENCOUNTER 2021-01-15 | Outpatient (CLI) | payer MEDICAID, SELFPAY | END 2021-01-15 00:01 | disposition home or self-care (01) | LOC: RADSHAW 09-10 09:07 | PROVIDERS: PCP Nurse Practitioner; Visit Provider Obstetrics & Gynecology | DX: Z30.9 Encounter for contraceptive management, unspecified (principal) | CPT/HCPCS: 81025 ==

== ENCOUNTER → 2021-04-08 17:05 | Outpatient (BNVA) | payer MEDICAID, SELFPAY | PROVIDERS: PCP Nurse Practitioner; Visit Provider Family Medicine | DX: R06.02 Shortness of breath (principal) | CPT/HCPCS: 87635 ==

== ENCOUNTER 2021-04-21 18:57 | Emergency (ER) | payer MEDICAID, SELFPAY ==
[2021-04-21 19:22] VITALS: BP 134/79; PULSE 96; RESP 18; TEMP 36.6; O2SAT 98; BMI 37.1
--- NOTE | 2021-04-21 19:27 | XRR_ITS ---
PROCEDURE INFORMATION: Exam: XR Left Tibia and Fibula Exam date and time: 04/21/2021 7:27 PM Age: 25 years old Clinical indication: Injury or trauma; Blunt trauma; Lower leg; Left; Injury details: Fall on ice; Additional info: Fall, injury TECHNIQUE: Imaging protocol: XR Left tibia and fibula. Views: 2 views. COMPARISON: No relevant prior studies available. FINDINGS: Bones/joints: Normal. Soft tissues: Normal. XR/XR tibia fibula LT 2V [id number] IMPRESSION: No acute findings.
--- NOTE | 2021-04-21 19:27 | XRR_ITS ---
PROCEDURE INFORMATION: Exam: XR Left Femur Exam date and time: 04/21/2021 7:27 PM Age: 25 years old Clinical indication: Injury or trauma; Blunt trauma; Thigh or upper leg; Left; Injury details: Fall on ice; Additional info: Injury, fall TECHNIQUE: Imaging protocol: XR Left femur. Views: 2 views. COMPARISON: No relevant prior studies available. FINDINGS: Bones/joints: Unremarkable. No acute fracture. Soft tissues: Unremarkable. XR/XR femur LT min 2V* [id number] IMPRESSION: No acute findings.
--- NOTE | 2021-04-21 19:54 | W.ED.EXTPRO ---
HPI - Extremity Problem General: Chief complaint: Extremity Injury, Lower Stated complaint: Left leg Injury Time Seen by Provider: 04/21/21 19:54 History of Present Illness: 25-year-old female comes in today with injury to the left leg. Patient was walking outside and slipped on some ice causing her left knee to twist. Patient reports pain and discomfort to the upper and lower leg on the left side. Patient appears well. No obvious deformity is noted to the leg. Onset (ago): hour(s) Location: lower extremity (Left upper leg and knee) Quality: aching Relieving factors: rest Exacerbating factors: weight bearing Associated symptoms: Reports no associated symptoms Review of Systems General: Reports: 10 or more systems reviewed and unremarkable except in HPI and below Musc: Reports: extremity pain (Left leg) and joint pain (Left knee) PFSH ED PFSH: Medical History Family history of breast cancer in first degree relative No pertinent past medical history Denies diabetes, asthma, hypertension, seizures, DVT/PE. PCP: Tracey TERRY PCOS (polycystic ovarian syndrome) Reports being diagnosed with PCOS in 2019 with irregular bleeding after the Nexplanon was removed. This was diagnosed by a doctor in [place]. Surgical History History of arthroplasty of knee bilateral 2 times--both surgeries were performed in 2012 History of tonsillectomy At the age of 5-no complications Right radial fracture At the age of 7 which was repaired with surgery. Family History Grandmother Breast cancer maternal, diagnosed at age 30. She also had cervical cancer diagnosed at the age of 50. Mother Cancer thyroid cancer diagnosed in her 30s Breast cancer diagnosed at age 27--lump was palpated while patient was breast-feeding and she was diagnosed with cancer. Underwent lumpectomy with radiation and chemotherapy Hypertension Father Diabetes Hyperlipidemia Hypertension Grandfather Diabetes maternal and paternal Hyperlipidemia paternal and maternal Hypertension maternal Denies family history of Colon cancer Ovarian cancer Heart disease Anesthesia complication Stroke Social History Smoking and tobacco status: never smoked Alcohol intake: former Female Reproductive History: Date of last menstrual period: 04/08/21 Para: 1 Physical Exam Const: COMMON NORMALS: alert Neck/C-Spine: COMMON NORMALS: full ROM Resp: COMMON NORMALS: normal respiratory effort Cardio: COMMON NORMALS: regular rate and regular rhythm RATE: regular rate RHYTHM: regular rhythm Extremity: COMMON NORMALS: normal to inspection and full ROM LEFT LOWER EXTREMITY: Yes knee joint (Tenderness to the joint bilateral joint line, minimal swelling) Left knee: Yes inspection, Yes palpation, Yes ROM and Yes neurovascular exam Neuro: SENSORIUM/ORIENTATION: Yes alert Course Vital Signs: Vital signs: Vital Signs Temperature 97.8 F 04/21/21 19:22 Pulse Rate 96 04/21/21 19:22 Respiratory Rate 18 04/21/21 19:22 Blood Pressure 134/79 04/21/21 19:22 Pulse Oximetry 98 04/21/21 19:22 MDM - Extremity (Nontraumatic) Medical Decision Making 25-year-old female comes in with injury to the left leg. On exam there is no obvious deformity. Patient does have some joint line tenderness of the left knee. Distal pulses and sensations are intact. Differential diagnosis includes but not limited to fracture, sprain, contusion. X-rays were unremarkable. No signs of fracture or sprain is noted in the femur or tib-fib. Knee joint appears in alignment. Reviewed exam with patient recommended crutches until she can bear weight comfortably. Patient wanted to be referred to orthopedist for further evaluation and treatment. Replaced no in with case management to assist with this follow-up appointment. Patient has a extensive knee history with MCL tear to the left knee and prior meniscal injuries. Discharge Plan Discharge Patient Disposition: Home Clinical Impression: Left knee sprain Condition: Stable Prescriptions: No Action Mirena 20 mcg/24 hours (6 yrs) 52 mg intrauterine device 1 insert intrauterine .every 6 years Qty: 1 0RF Discharge Orders: Discharge ED (Routine); Ordered 04/21/21 Ordered By: Rajendra Patterson Other Ambulatory Orders: DME: Cane/ Crutches (Order) Location: None Selected Ordered By: Rajendra Patterson Referrals: Fang Neely, TRACK DRESSER-C [Primary Care Provider] - Discharge Diet: Usual diet Discharge Activity: Increase activity as tolerated Patient Instructions: Knee Sprain (ED), Opioid Safety Activity Restrictions/Additional Instructions: Activity as tolerated. Use crutches until he can walk comfortably on the extremity. Use acetaminophen and ibuprofen for pain. Use ice for further pain relief. Follow-up with primary care orthopedics of choice for further evaluation and treatment, return to the ER for new concerns. Coding Level of Care Code ED Canvas Cutter Hand for Melissa Nielsen History Problem Focused Exam Problem Focused Medical Decision Making Low Complexity Time Spent (min) 20
[2021-04-21 21:24] VITALS: BP 129/78; PULSE 91; RESP 18; TEMP 36.5; O2SAT 99
--- NOTE | 2021-04-22 10:24 | DCPLANNER ---
Addendum entered by Tashia White 04/26/21 06:43: Patient had a follow up appointment scheduled for 04.25.21 with RAVEN Beltran at ortho - patient did attend appointment. Original Note: rn field case manager had message to schedule a follow up appointment for patient with ortho. rn field case manager called the ortho clinic, spoke with Key, gave clinic patients information. rn field case manager was told that patients information would be printed and reviewed. Clinic will call patient with appointment information.
== END 2021-04-21 21:26 | disposition home or self-care (01) ==
PROVIDERS: Emergency Provider Nurse Practitioner Family; PCP Nurse Practitioner
DX: S83.92XA Sprain of unspecified site of left knee, initial encounter (principal); W00.0XXA Fall on same level due to ice and snow, initial encounter
CPT/HCPCS: 73552; 73590; 99283; E0114

== ENCOUNTER → 2021-04-25 13:49 | Outpatient (BNVA) | payer MEDICAID, SELFPAY | PROVIDERS: PCP Nurse Practitioner; Referring Provider Nurse Practitioner Family; Visit Provider Physician Assistant | DX: S83.92XA Sprain of unspecified site of left knee, initial encounter (principal); X58.XXXA Exposure to other specified factors, initial encounter | CPT/HCPCS: 73560; 73565 ==

== ENCOUNTER 2021-04-25 15:02 | Outpatient (CLI) | payer MEDICAID, SELFPAY | END 2021-04-25 15:03 | disposition home or self-care (01) | LOC: SPT 15:03 | PROVIDERS: PCP Nurse Practitioner; Visit Provider Physician Assistant | DX: Z46.89 Encounter for fitting and adjustment of other specified devices (principal); M25.561 Pain in right knee | CPT/HCPCS: 97760; L1812 ==

== ENCOUNTER 2021-05-07 11:52 | Outpatient (CLI) | payer MEDICAID, SELFPAY ==
--- NOTE | 2021-05-07 11:45 | MR_ITS ---
WS: [id number] MRI LEFT KNEE NONCONTRAST TECHNIQUE: Axial PD, coronal PD fat sat, coronal PD, sagittal PD, and sagittal PD fat-sat images obta ined. CLINICAL INFORMATION: S83.92XA - Sprain of unspecified site of left knee, initi... COMPARISON: MRI 8 [id number] FINDINGS: Distal quadriceps and patella tendons are intact. Normal ACL and PCL. Normal medial and lateral menis cus. No acute appearing meniscal tears. Normal patella. No significant joint effusion. Normal tibial plateau and femoral condyles. Bony contusion. Medial and lateral collateral ligaments are intact. Nor mal patella and patella cartilage. Normal patellar retinaculum. Normal visualized soft tissues. No ot her significant findings. MR/MR knee LT wo con* [id number] IMPRESSION: 1. Normal ACL and PCL. 2. Normal medial and lateral meniscus. No acute appearing meniscal tears. 3. No significant joint effusion. 4. Normal bone marrow signal in the femoral condyles and tibial plateau. 5. Medial and lateral collateral ligaments are normal. 6. No other significant findings Outbridge grading: NA
== END 2021-05-07 11:53 | disposition home or self-care (01) ==
LOC: RAD 11:54
PROVIDERS: PCP Nurse Practitioner; Visit Provider Physician Assistant
DX: S83.92XA Sprain of unspecified site of left knee, initial encounter (principal); X58.XXXA Exposure to other specified factors, initial encounter
CPT/HCPCS: 73721

== ENCOUNTER → 2021-06-25 10:16 | Outpatient (BNVA) | payer MEDICAID, SELFPAY | PROVIDERS: PCP Nurse Practitioner; Visit Provider Obstetrics & Gynecology | DX: Z30.9 Encounter for contraceptive management, unspecified (principal) | CPT/HCPCS: 81025 ==

== ENCOUNTER → 2021-11-22 11:30 | Outpatient (BNVA) | payer OTHER, MEDICAID, SELFPAY | PROVIDERS: PCP Nurse Practitioner; Visit Provider Nurse Practitioner Family | DX: M25.512 Pain in left shoulder (principal) | CPT/HCPCS: 73030 ==

== ENCOUNTER → 2021-12-09 15:21 | Outpatient (BNVA) | payer OTHER, MEDICAID, SELFPAY | PROVIDERS: PCP Nurse Practitioner; Visit Provider Obstetrics & Gynecology | DX: R30.0 Dysuria (principal); R39.15 Urgency of urination | CPT/HCPCS: 81000; 87077; 87086; 87184 ==

== ENCOUNTER 2022-02-21 14:18 | Emergency (ER) | payer OTHER, MEDICAID, SELFPAY ==
[2022-02-21 14:27] VITALS: BP 146/108; PULSE 103; RESP 16; TEMP 36.8; O2SAT 97; BMI 38.7
--- NOTE | 2022-02-21 15:41 | XR_ITS ---
WS: [id number] EXAMINATION: XR chest 1V portable [id number] REASON FOR EXAM: chest pain; shield abd COMPARISON: 04/13/2019 ORDER DATE: 02/21/2022 3:41 PM TECHNIQUE: A single, portable frontal chest x-ray was obtained. X-RAY FINDINGS: The lungs are clear. Pleural spaces are clear. No pleural effusions or pneumothorax. Cardiomediastinal silhouette is normal. No evidence for pulmonary edema. Soft tissue and osseous structures are unremarkable. No tubes or lines are present. XR/XR chest 1V portable [id number] IMPRESSION: Unremarkable frontal portable chest x-ray.
--- NOTE | 2022-02-21 15:42 | ECG_ITS ---
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 Measurements Intervals [place] Rate: 88 P: 62 MO: 157 QRS: 82 QRSD: 88 T: 56 QT: 353 QTc: 429 Interpretive Statements SINUS RHYTHM Compared to ECG 05/31/2019 15:41:53 Sinus tachycardia no longer present T-wave abnormality no longer present Electronically Signed On 02-22-2022 16:39:23 SOLAR INSTALLER by Juan Daniel Huang M.D. [id number]
--- NOTE | 2022-02-21 15:43 | ED_ITS ---
HPI - Chest Pain General: Chief Complaint: Chest Pain Stated Complaint: chest pain Time Seen by Provider: 02/21/22 14:59 Source: patient Mode of arrival: ambulatory Limitations: no limitations History of Present Illness: See nursing assessment. Patient with complaints of central lower sternal chest pain started approximately 2 hours ago. She states she was at work and started having pleuritic type chest pain in that area. She states she had mild shortness of breath with it. She denies any fever or cough. She states she has been drinking caffeine today. She states she has a past medical history of atrial fibrillation and is supposed to be on metoprolol but states it did not really help much so she stopped it. She states she takes no routine medications now. She denies any allergies to medications. She states she has had 2 knee surgeries on each knee and right arm surgery. She is also had tonsillectomy. She denies tobacco use. She does drink caffeine. She still has chest pain with a deep breath or palpation of her sternum. Associated symptoms: Deny abdominal pain, fever(s), nausea, palpitations or vomiting Review of Systems Const: Denies: fever(s) or chills Eyes: Denies: change in vision ENMT: Denies: throat pain Card: Reports: chest pain; Denies: palpitations, irregular heart rhythm or swelling of feet/ankles Resp: Reports: other (Mild shortness of breath earlier. No shortness of breath now.); Denies: wheezing GI: Denies: abdominal pain, nausea or vomiting : Denies: flank pain Musc: Denies: neck pain or back pain Skin/Breast: Denies: rash or pruritus Neuro: Denies: headache(s) or numbness in extremities Psych: Denies: anxiety Peter/Lymph: Denies: enlarged lymph nodes PFS ED 2 PFSH: Medical History Family history of breast cancer in first degree relative Obesity (BMI 30-39.9) PCOS (polycystic ovarian syndrome) Reports being diagnosed with PCOS in 2019 with irregular bleeding after the Nexplanon was removed. This was diagnosed by a doctor in [place]. Surgical History History of arthroplasty of knee bilateral 2 times--both surgeries were performed in 2012 History of tonsillectomy At the age of 5-no complications Right radial fracture At the age of 7 which was repaired with surgery. Family History Grandmother Breast cancer maternal, diagnosed at age 30. She also had cervical cancer diagnosed at the age of 50. Mother Cancer thyroid cancer diagnosed in her 30s Breast cancer diagnosed at age 27--lump was palpated while patient was breast-feeding and she was diagnosed with cancer. Underwent lumpectomy with radiation and chemotherapy Hypertension Father Diabetes Hyperlipidemia Hypertension Obese Grandfather Diabetes maternal and paternal Hyperlipidemia paternal and maternal Hypertension maternal Denies family history of Colon cancer Ovarian cancer Heart disease Anesthesia complication Stroke Social History Smoking and tobacco status: current every day smoker Female Reproductive History: Date of last menstrual period: 04/08/21 Para: 1 Supplemental [facility] Information: Patient denies tobacco use. She states she does drink caffeine. Physical Exam Const: COMMON NORMALS: no acute distress, patient oriented x3, no limitations and well nourished GENERAL APPEARANCE: cooperative HENMT: COMMON NORMALS: normocephalic and atraumatic HEAD & SCALP: normocephalic and atraumatic FACE & SINUS: normal facial exam Eye: COMMON NORMALS: EOMs intact bilaterally Neck/C-Spine: COMMON NORMALS: full ROM, no lymphadenopathy, supple and no meningeal signs GENERAL: Yes normal visual inspection Lymph: LYMPHATIC: no lymphadenopathy noted Chest: CHEST: No Ecchymosis present and No rash OTHER: Reproducible pain with palpation to the lower third of the sternum. No soft tissue swelling. No rash. No crepitus. Resp: COMMON NORMALS: normal respiratory effort, No retractions and clear to auscultation bilaterally EFFORT & INSPECTION: No respiratory distress AUSCULTATION: clear to auscultation bilaterally Cardio: COMMON NORMALS: regular rate, regular rhythm and Peripheral pulses 2+ throughout JUGULAR VENOUS DISTENTION: no JVD RATE: regular rate RHYTHM: regular rhythm PERIPHERAL PULSES: Peripheral pulses 2+ throughout GI: COMMON NORMALS: Normal to inspection, nondistended, normoactive bowel sounds present and non-tender OTHER: Obese : COMMON NORMALS: Yes no CVA tenderness BLADDER/KIDNEY EXAM: Yes no CVA tenderness Back/Pelvis: COMMON NORMALS: no CVA tenderness Extremity: COMMON NORMALS: normal to inspection, full ROM and capillary refill normal Neuro: COMMON NORMALS: patient oriented x3, CN's II-XII intact bilaterally, no focal motor deficits and no sensory deficits noted MENINGEAL SIGNS: Yes no meningeal signs Psych: COMMON NORMALS: mental status grossly normal and Normal thought process present THOUGHT PROCESS: Normal thought process present Skin: COMMON NORMALS: no rashes or lesions noted and no wounds GENERAL SKIN EXAM: no rashes or lesions noted Course Vital Signs: Vital signs: Vital Signs Temperature 98.3 F 02/21/22 14:27 Pulse Rate 82 02/21/22 16:04 Respiratory Rate 12 02/21/22 16:04 Blood Pressure 146/108 02/21/22 14:27 Pulse Oximetry 98 02/21/22 16:04 Oxygen Delivery Me thod 02/21/22 14:27 MDM - Chest Pain Medical Decision Making Likely chest wall pain versus pleurisy. Lab work looks normal. Chest x-ray is normal. Telemetry is normal. I do not feel like patient has pulmonary embolus. We will treat for costochondritis and pleurisy.. Lab Data 02/21/22 15:30 02/21/22 15:30 Radiology Impressions Chest X-Ray 02/21/22 15:41 IMPRESSION: Unremarkable frontal portable chest x-ray. Laboratory Results WBC 9.1 10^3/uL (4.0-10.0) 02/21/22 15:30 RBC 5.20 10^6/uL (4.1-5.3) 02/21/22 15:30 Hgb 15.3 g/dL (11.5-15.3) 02/21/22 15:30 Hct 46.7 % (37.0-47.0) 02/21/22 15:30 MCV 89.8 fl (81-99) 02/21/22 15:30 MCH 29.4 pg (28.0-34.0) 02/21/22 15:30 MCHC 32.8 g/dL (30.0-36.0) 02/21/22 15:30 RDW 12.6 % (12.1-15.1) 02/21/22 15:30 Plt Count 290 10^3/cmm (130-400) 02/21/22 15:30 MPV 10.2 fL (7.4-10.4) 02/21/22 15:30 Neut % (Auto) 63.7 % 02/21/22 15:30 Lymph % (Auto) 29.5 % 02/21/22 15:30 [place] % (Auto) 4.4 % 02/21/22 15:30 Eos % (Auto) 1.1 % 02/21/22 15:30 Baso % (Auto) 0.9 % 02/21/22 15:30 Neut # (Auto) 5.82 10^3/uL (1.8-7.7) 02/21/22 15: Lymph # (Auto) 2.7 10^3/uL (0.8-4.8) 02/21/22 15:30 [place] # (Auto) 0.4 10^3/uL (0.2-0.9) 02/21/22 15:30 Eos # (Auto) 0.1 10^3/uL (0.0-0.8) 02/21/22 15:30 Baso # (Auto) 0.1 10^3/uL (0.0-0.1) 02/21/22 15: Nucleated RBC % (auto) 0 % 02/21/22 15: Nucleated RBCs # 0.0 /100WBC 02/21/22 15:30 Sodium 140 mmol/L (136-145) 02/21/22 15:30 Potassium 3.6 mmol/L (3.5-5.1) 02/21/22 15:30 Chloride 103 mmol/L (98-107) 02/21/22 15:30 Carbon Dioxide 26 mmol/L (22-29) 02/21/22 15:30 Anion Gap 14.6 (5-19) 02/21/22 15:30 BUN 13 mg/dL (6-20) 02/21/22 15:30 Creatinine 0.8 mg/dL (0.5-0.9) 02/21/22 15:30 GFR Calculation 86.0 mL/min (90-130) L 02/21/22 15:30 Glucose 98 mg/dL (65-115) 02/21/22 15:30 Calculated Osmolality 290 mOsm/kg (285-295) 02/21/22 15:30 Calcium 9.7 mg/dL (8.5-10.5) 02/21/22 15:30 Troponin T Baseline 6 ng/L (0-10) 02/21/22 15:30 Imaging Data CXR: My impression: Nothing acute. Radiologist's impression: Ordering Provider/Ordering MD: Marcos Singletary MD Date of Service: 02/21/22 Procedure(s): XR chest 1V portable [id number] Accession Number(s): [id number] Report Number: [id number] WS: [id number] EXAMINATION: XR chest 1V portable [id number] REASON FOR EXAM: chest pain; shield abd COMPARISON: 04/13/2019 ORDER DATE:? 02/21/2022 3:41 PM TECHNIQUE: A single, portable frontal chest x-ray was obtained. X-RAY FINDINGS: The lungs are clear. Pleural spaces are clear. No pleural effusions or pneumothorax. Cardiomediastinal silhouette is normal. No evidence for pulmonary edema. Soft tissue and osseous structures are unremarkable. No tubes or lines are present. XR/XR chest 1V portable [id number] IMPRESSION: ?Unremarkable frontal portable chest x-ray. ? Dictated By: Jordan Daly MD Signed By: Jordan Daly MD Signed Date/Time: 02/21/221600 DD/ 00 EKG Data EKG 1: I personally reviewed and interpreted this EKG as follows: EKG interpretation date: 02/21/22 EKG interpretation time: 15:53 Prior EKG tracings: available for review (Patient has sinus tachycardia on EKG on May 31, 2019.) Interpretation: Impression normal EKG. Normal sinus rhythm heart rate 88. Normal axis. Normal QRS. Normal ST segment. Normal [place] interval, normal QT interval. Normal P wave, normal T waves. Discharge Plan Discharge Patient Disposition: Home Clinical Impression: Acute chest wall pain, Acute pleurisy without pleural effusion Condition: Stable Prescriptions: New indomethacin 50 mg capsule 50 mg PO TID PRN (Reason: pain) Qty: 12 1RF Rx Instructions: take with food or milk prn pain No Action amoxicillin-pot clavulanate 875-125 mg tablet 1 tab PO BID Discharge Orders: Discharge ED (Routine); Ordered 02/21/22 Ordered By: Marcos Singletary Referrals: Fang Neely, ENDOSCOPY REGISTERED NURSE-C [Primary Care Provider] - 4-7 days (For recheck.) Discharge Activity: Resume usual activity Patient Instructions: Pleurisy (ED), Chest Wall Pain (ED) Activity Restrictions/Additional Instructions: Heart work-up was normal in the emergency room. Take indomethacin as needed for discomfort or pain. Follow-up with family doctor as needed. Coding Level of Care Code ED [employer] Manager for Chg Fwd Exam Comprehensive
[2022-02-21 15:51] LABS: Basophils # 0.1 10^3/uL (0.0-0.1); Basophils % 0.9 %; Eosinophils # 0.1 10^3/uL (0.0-0.8); Eosinophils % 1.1 %; Hematocrit 46.7 % (37.0-47.0); Hemoglobin 15.3 g/dL (11.5-15.3); Lymphocytes # 2.7 10^3/uL (0.8-4.8); Lymphocytes % 29.5 %; Mean Corpuscular HGB Conc 32.8 g/dL (30.0-36.0); Mean Corpuscular Hemoglobin 29.4 pg (28.0-34.0); Mean Corpuscular Volume 89.8 fl (81-99); Mean Platelet Volume 10.2 fL (7.4-10.4); Monocytes # 0.4 10^3/uL (0.2-0.9); Monocytes % 4.4 %; Neutrophils # 5.82 10^3/uL (1.8-7.7); Neutrophils % 63.7 %; Nucleated Red Blood Cells % 0 %; Platelet Count 290 10^3/cmm (130-400); Red Cell Distribution Width 12.6 % (12.1-15.1); White Blood Count 9.1 10^3/uL (4.0-10.0)
[2022-02-21] MEDS: aspirin 325 mg Tablet PO (16:03)
[2022-02-21 16:04] VITALS: PULSE 82; RESP 12; O2SAT 98
[2022-02-21 16:04] LABS: Troponin(5th) Baseline 6 ng/L (0-10)
[2022-02-21] MEDS: ketorolac 30 mg/mL INJ 15 MG IVP (16:04)
[2022-02-21 16:06] LABS: Anion Gap 14.6 (5-19); Blood Urea Nitrogen 13 mg/dL (6-20); Calcium 9.7 mg/dL (8.5-10.5); Carbon Dioxide 26 mmol/L (22-29); Chloride 103 mmol/L (98-107); Creatinine Clr Calc Pharmacy 131.9434; Glucose 98 mg/dL (65-115); Osmolality Calculated 290 mOsm/kg (285-295); Potassium 3.6 mmol/L (3.5-5.1); Sodium 140 mmol/L (136-145)
== END 2022-02-21 16:28 | disposition home or self-care (01) ==
PROVIDERS: Emergency Provider Family Medicine; PCP Nurse Practitioner
DX: M94.0 Chondrocostal junction syndrome [Tietze] (principal); R09.1 Pleurisy
CPT/HCPCS: 71045; 80048; 84484; 85025; 93005; 96374; 99285; J1885

== ENCOUNTER → 2022-03-11 10:27 | Outpatient (BNVA) | payer OTHER, MEDICAID, SELFPAY | PROVIDERS: PCP Nurse Practitioner; Visit Provider Registered Nurse Neonatal Intensive Care | DX: R50.9 Fever, unspecified (principal); B34.9 Viral infection, unspecified | CPT/HCPCS: 87400 ==

== ENCOUNTER → 2022-03-13 10:05 | Outpatient (BNVA) | payer OTHER, MEDICAID, SELFPAY | PROVIDERS: PCP Nurse Practitioner; Visit Provider Specialist | DX: M25.572 Pain in left ankle and joints of left foot (principal); M25.562 Pain in left knee; M25.561 Pain in right knee | CPT/HCPCS: 73560; 73565; 73610; 73630 ==

== ENCOUNTER 2022-03-13 11:25 | Outpatient (CLI) | payer OTHER, MEDICAID, SELFPAY | END 2022-03-13 11:26 | disposition home or self-care (01) | LOC: SPT 11:25 | PROVIDERS: PCP Nurse Practitioner; Visit Provider Specialist | DX: Z46.89 Encounter for fitting and adjustment of other specified devices (principal); M23.92 Unspecified internal derangement of left knee; S83.92XD Sprain of unspecified site of left knee, subsequent encounter; M25.562 Pain in left knee; M22.2X2 Patellofemoral disorders, left knee; S93.402D Sprain of unspecified ligament of left ankle, subsequent encounter; X58.XXXD Exposure to other specified factors, subsequent encounter | CPT/HCPCS: 97760; L1812; L1902 ==

== ENCOUNTER 2022-03-24 13:06 | Outpatient (CLI) | payer MEDICAID, SELFPAY ==
--- NOTE | 2022-03-24 13:24 | MR_ITS ---
WS: [id number] MRI LEFT KNEE ARTHROGRAM TECHNIQUE: Axial PD, coronal PD fat sat, coronal PD, sagittal PD, and sagittal PD fat-sat images obta ined. Post arthrogram images were obtained. CLINICAL INFORMATION: left knee injury COMPARISON: MRI May 07, 2021 FINDINGS: Distal quadriceps and patella tendons are intact. Normal ACL and PCL. Normal medial and lateral menis cus. No acute appearing meniscal tears. No significant joint effusion. Normal popliteus. Normal medial and lateral collateral ligaments. Normal patella. Normal patella cartilage. Normal medi al and lateral patellar retinaculum. Normal popliteal fossa. Normal arthrogram images. No other suspi cious findings. MR/MR knee LT wo/w con [id number] IMPRESSION: 1. Normal ACL and PCL. 2. No acute appearing meniscal tears. 3. Normal medial and lateral collateral ligaments. 4. No other suspicious findings. Outbridge grading: grade I: focal areas of hyperintensity with normal contour
--- NOTE | 2022-03-24 13:30 | IR_ITS ---
WS: [id number] LEFT KNEE ARTHROGRAM Fluoroscopic guided left knee arthrogram. CLINICAL INFORMATION: left knee injury COMPARISON: None. TECHNIQUE: The procedure including risks, benefits, and complications were discussed with the patient , who agreed to proceed. Timeout was performed. Using sterile technique, the patient was prepped and draped in the usual sterile fashion. After 1% lidocaine injection using fluoroscopic guidance, a 22-g auge spinal needle was advanced into the left patellofemoral compartment. Subsequently 40 cc of a mix ture containing 10 cc 1% lidocaine, 20 cc normal saline, 10 cc Omnipaque 240, and 0.2 cc gadolinium w as administered. No immediate complications. FLUOROSCOPY TIME: 4min [id number] # of spot films: 2 IR/[place] [id number] IMPRESSION: Uncomplicated left knee fluoroscopic guided arthrogram. MRI to follow.
[2022-03-24] MEDS: gadobenate dimeglumine 20 mL vial XX (15:09)
[2022-03-24] MEDS: iohexol 240 mg/mL 50 mL Btl INTRA-ARTI (15:10)
== END 2022-03-24 13:07 | disposition home or self-care (01) ==
LOC: RAD 13:07
PROVIDERS: PCP Nurse Practitioner; Visit Provider Specialist
DX: M22.2X2 Patellofemoral disorders, left knee (principal); M23.92 Unspecified internal derangement of left knee; M25.562 Pain in left knee; S83.92XA Sprain of unspecified site of left knee, initial encounter; X58.XXXA Exposure to other specified factors, initial encounter
CPT/HCPCS: 27369; 73723; 77002; A9577; Q9966

== ENCOUNTER → 2022-04-03 13:21 | Outpatient (BNVA) | payer MEDICAID, SELFPAY | PROVIDERS: PCP Nurse Practitioner; Visit Provider Obstetrics & Gynecology | DX: R10.2 Pelvic and perineal pain (principal); Z97.5 Presence of (intrauterine) contraceptive device; N83.202 Unspecified ovarian cyst, left side | CPT/HCPCS: 76830 ==

== ENCOUNTER → 2022-05-06 08:52 | Outpatient (BNVA) | payer MEDICAID, SELFPAY | PROVIDERS: PCP Nurse Practitioner; Visit Provider Nurse Practitioner | DX: R10.11 Right upper quadrant pain (principal) | CPT/HCPCS: 80053; 85025 ==

== ENCOUNTER 2022-05-07 07:19 | Outpatient (CLI) | payer MEDICAID, SELFPAY ==
--- NOTE | 2022-05-07 | US_ITS ---
WS: [id number] RIGHT UPPER QUADRANT ULTRASOUND HISTORY: R10.11 - Right upper quadrant pain COMPARISON: 05/31/2019 renal ultrasound. Liver: 16.9 cm in length. Normal size with mild coarsened echotexture. No focal mass. No bile duct di latation. Portal Vein: Normal hepatopetal flow with monophasic waveform. Gallbladder: Normally distended gallbladder with no stones or wall thickening. CBD: 0.3 cm Pancreas: Poorly visualized. Right kidney: 11.5 cm in length. Normal size and echogenicity. No hydronephrosis or mass. Aorta and IVC: Unremarkable abdominal aorta and IVC. No ascites. US/US gall bladder 51452 IMPRESSION: 1. Normal gallbladder. 2. Normal size liver with no bile duct dilatation. There may be very slight he patic steatosis. 3. No bile duct dilatation.
== END 2022-05-07 07:20 | disposition home or self-care (01) ==
PROVIDERS: PCP Nurse Practitioner; Visit Provider Nurse Practitioner
DX: R10.11 Right upper quadrant pain (principal)
CPT/HCPCS: 76705

== ENCOUNTER 2022-05-20 05:40 | Day surgery (SDC) | payer MEDICAID, SELFPAY ==
[2022-05-19 12:06] VITALS: BMI 38.7
[2022-05-20] VITALS (10 sets, daily range): BP systolic 102–140; BP diastolic 67–94; PULSE 62–93; RESP 15–18; TEMP 36.1–36.3; O2SAT 94–98
[2022-05-20 06:00] LABS: OR HCG Qualitative Urine Negative (Negative)
[2022-05-20] MEDS: sodium chloride 0.9% 1,000 ML 30 ML IV (06:10)
[2022-05-20] MEDS: scopolamine 1.5 Patch 1 PATCH TRANSDERMA (06:10)
[2022-05-20] MEDS: acetaminophen 1,000 MG/100 ML PIGGYBACK 400 MG IV (06:11)
[2022-05-20] MEDS: phenazopyridine 100 mg Tablet 200 MG PO (06:12)
[2022-05-20] MEDS: gabapentin 300 mg Capsule PO (06:12)
[2022-05-20] MEDS: CELEcoxib 200 mg Capsule 400 MG PO (06:12)
--- NOTE | 2022-05-20 06:42 | ECG_ITS ---
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 Measurements Intervals [place] Rate: 72 P: 42 UT: 160 QRS: 43 QRSD: 86 T: 42 QT: 393 QTc: 431 Interpretive Statements SINUS RHYTHM WITH SINUS ARRHYTHMIA Compared to ECG 02/21/2022 15:50:32 No significant changes Electronically Signed On 05-20-2022 18:21:09 ASPHALT RAKER by Juan Daniel Huang M.D. [id number]
--- NOTE | 2022-05-20 07:03 | W.PM.OPSUD ---
Surgery/Procedure H&P Update DATE OF PROCEDURE: May 20, 2022 DATE H&P PERFORMED: 05/15/22 H&P UPDATE INFORMATION: I have reviewed H&P completed within last 30 days, I have examined patient prior to procedure and No changes to prior documentation PREOP DIAGNOSIS: sterilization consult PLANNED PROCEDURE: Operation Date: 05/20/22 07:00 Proposed Procedures p Laparoscopic bilateral salpingectomy 44567,Z30.2(Bilateral) - Nadine Luevano MD Related Problem List Diagnoses (1) Sterilization consult:
--- NOTE | 2022-05-20 07:04 | ANES.PREANE2 ---
Pre-Anesthetic Assessment Height/Weight: Height 1.68 m Weight 108.862 kg Temp Pulse Resp BP Pulse Ox O2 Del Method 97.3 F L 93 18 131/94 98 05/20/22 05:58 05/20/22 05:58 05/20/22 05:58 05/20/22 05:58 05/20/22 05:58 05/20/22 05:58 Preop Diagnosis: sterilization consult Operation Date: 05/20/22 07:00 Proposed Procedures p Laparoscopic bilateral salpingectomy 49282,Z30.2(Bilateral) - Nadine Luevano MD Familial anesthetic complications: None Was Beta Rocky taken within 24 hours: N/A Was Clonidine taken within 24 hours: N/A Last intake: Intake Last Liquid Date 05/19/22 Last Liquid Time 20:00 Last Solid Date 05/19/22 Last Solid Time 20:00 Social No alcohol and No tobacco Exam alert, oriented x 3, clear to auscultation bilaterally and regular rate & rhythm Airway Mallampati: Class III Dentition: full CV/HEM Atrial Fibrillation and Arrythmia (Tachycardia) Taken off metoprolol d/t hypotension per patient Metabolic Morbid Obesity Anesthetic Plan ASA status: 3 Anesthesia: General Risk of > 500 ml blood loss (7ml/kg in children): No Medications/Allergies Home Medications Medication Instructions Recorded Confirmed Last Taken Type No Known Home Medications 03/13/22 05/15/22 Unknown History Allergies Allergy/AdvReac Type Severity Reaction Status Date / Time No Known Allergies Allergy Verified 05/20/22 06:02 Current Medications Generic Name Dose Route Start Last Admin Trade Name Freq PRN Reason Stop Dose Admin Sodium Chloride 1,000 mls @ 30 mls/hr 05/20/22 06:00 05/20/22 06:10 Sodium Chloride 0.9% IV 05/21/22 05:59 30 mls/hr .Q24H CHASTITY Administration PFS Anesthesia Medical History (Updated 05/08/22 @ 22:59 by GREY Canseco) Family history of breast cancer in first degree relative Obesity, morbid, BMI 40.0-49.9 PCOS (polycystic ovarian syndrome) Reports being diagnosed with PCOS in 2019 with irregular bleeding after the Nexplanon was removed. This was diagnosed by a doctor in [place]. Surgical History History of arthroplasty of knee bilateral 2 times--both surgeries were performed in 2012 History of tonsillectomy At the age of 5-no complications Right radial fracture At the age of 7 which was repaired with surgery. Family History Grandmother Breast cancer maternal, diagnosed at age 30. She also had cervical cancer diagnosed at the age of 50. Mother Cancer thyroid cancer diagnosed in her 30s Breast cancer diagnosed at age 27--lump was palpated while patient was breast-feeding and she was diagnosed with cancer. Underwent lumpectomy with radiation and chemotherapy Hypertension Father Diabetes Hyperlipidemia Hypertension Obese Grandfather Diabetes maternal and paternal Hyperlipidemia paternal and maternal Hypertension maternal Denies family history of Colon cancer Ovarian cancer Heart disease Anesthesia complication Stroke Social History (Updated 05/15/22 @ 08:24 by Ale Arredondo LPN) Second hand smoke exposure: No Smoking risk assessment/counseling performed?: No Alcohol intake: unknown Desire information about alcohol rehabilitation?: No Counseling given: No Desire information about substance/drug rehabilitation?: No Counseling given: No Adopted: No Caregiver/support person: No Lives independently: Yes Housing: House Marital status: Single Number of children: 2 service: No Current occupation: [employer] Pets and animals: Yes Female Reproductive History Date of last menstrual period: 04/08/21 Para: 1 Data Anesthesia Cardiac Studies: Echocardiogram Ultrasound 06/01/19 Holter Monitor 07/03/19
[2022-05-20] MEDS: ceFAZolin 2,000 MG in sodium chloride 0.9% (plus) 50 ML 100 MG IV (07:08)
--- NOTE | 2022-05-20 08:33 | PM.OP ---
Operative Report Date of procedure: May 20, 2022 Pre-op diagnosis: Preop Diagnosis sterilization consult Post-op diagnosis: same Post-op findings: normal appearing uterus, tubes and ovaries Procedure done: laparoscopic bilateral salpingectomy Specimens removed/disposition: bilateral fallopian tubes to pathology Surgeon: Nadine Luevano Anesthesia: General Estimated blood loss (mL): 15 IV fluids (mL): 700 Urine output (mL): 150 Complications: none Condition: stable Disposition: PACU Procedure: The patient was taken to the operating room where general anesthesia was administered and found to be adequate. She was prepped and draped in the normal sterile fashion in the dorsal lithotomy position in [facility]. A Soares catheter was placed. A weighted speculum was placed into the vagina and the anterior lip of the cervix grasped with a single-tooth tenaculum. A ZTilera uterine manipulator was placed. The gloves were changed and attention was turned to the laparoscopic portion of the case. A 5 mm supraumbilical incision was made. The 5 mm trocar was placed using the easy view trocar. Intra-abdominal placement was confirmed and CO2 gas was used to insufflate the abdomen. Using direct visualization and illumination of the abdominal wall, two 5 mm incisions were made low and lateral. One on the left and one on the right. The 5mm trochars were then placed under direct visualization. Using the uterine manipulator and the grasper, the fallopian tubes were identified. Using the laparoscopic cautery, the fallopian tube was clamped cauterized and cut. First on the right, then on the left. The left tube had a mild amount of steady bleeding post removal. I used the cautery device to cauterize the area. It pulled the cauterized area off each time and the bleeding continued. Finally, I placed a clip across the vessel and there was excellent hemostasis. The pelvis and surgical beds were irrigated and suctioned. Pictures were taken. All instruments were removed. The abdomen was desufflated. The incisions were closed with 4-0 Vicryl. 10 ml of 1/2% bupivicaine was used around the incisions. The patient tolerated the procedure well. Sponge lap and needle counts were correct x3. She was taken to the recovery room in stable condition.
--- NOTE | 2022-05-20 08:43 | PM.DCS ---
Discharge Providers Date of Admission: 05/20/22 Date of Discharge: May 20, 2022 Attending Provider at Admission: Dr. Luevano Attending Provider at Discharge: Nadine Luevano MD Primary Care Provider: GREY Canseco Diagnoses at Discharge Discharge Diagnosis (1) Sterilization consult: Status: Acute Hospital Course Hospital Course The patient was admitted for surgery. She did well postoperatively and was ready for discharge. Discharge Data Studies Completed and Pending Pending at discharge Category Date Time Status Anaerobic Culture Routine Lab 05/20/22 07:58 Received Urine Culture Routine Lab 05/20/22 08:01 Received Wound Culture and Gram Stain Routine Lab 05/20/22 07:58 Received Pathology: Surgical [PTH] Routine Pth 05/20/22 08:22 Ordered Laboratory Results Urine HCG, Qual Negative (Negative) 05/20/22 05:51 Vitals Last Vital Signs Temp 97.3 F L 05/20/22 05:58 Pulse 93 05/20/22 05:58 Resp 18 05/20/22 05:58 BP 131/94 05/20/22 05:58 Pulse Ox 98 05/20/22 05:58 O2 Del Method 05/20/22 05:58 Discharge Plan Discharge Patient Disposition: Home Condition: Stable Prescriptions: New hydrocodone-acetaminophen 5-325 mg tablet 1 tab PO Q4H Qty: 20 0RF Discharge Orders: Discharge Order (Routine); Ordered 05/20/22 Ordered By: Nadine Luevano Discharge Attestations Time Spent in Discharge Care*: less than 30 min Quality Metrics Clinical Quality Measures [ No reported AMI, CVA or VTE this stay] Coding Level of Care Code Acute Code for Chg Fwd Diagnoses Sterilization consult Z30.09
[2022-05-20] MEDS: fentaNYL 50 mcg/mL INJ 2mL IVP (08:45)
[2022-05-20] MEDS: ondansetron 2 mg/ML SDV 2 mL 4 MG IVP (08:45)
[2022-05-20] MEDS: HYDROcodone-acetaminophen 5-325 mg Tablet 1 TAB PO (09:27)
--- NOTE | 2022-05-20 14:34 | ANE.PACU2 ---
Inpatient post-anesthesia follow up: Airway intact: Yes Vital signs: Temperature 97.0 F Pulse Rate 87 Respiratory Rate 18 Blood Pressure 134/78 Pulse Oximetry 94 Oxygen Delivery Me thod Room Air Oxygen Flow Rate 3 Fraction of Inspir ed Oxygen Hydration adequate: Yes Nausea and vomiting: No Pain level: 1 Mental status: Baseline
== END 2022-05-20 09:56 | disposition home or self-care (01) ==
PROVIDERS: Anesthesiology; PCP Nurse Practitioner; Visit Provider Obstetrics & Gynecology
PROC: (CPT 58661; principal; 2022-05-20 07:00)
DX: Z30.2 Encounter for sterilization (principal); I48.91 Unspecified atrial fibrillation; E66.01 Morbid (severe) obesity due to excess calories; Z68.38 Body mass index [BMI] 38.0-38.9, adult
CPT/HCPCS: 58661; 84703; 87070; 87075; 87086; 87186; 87205; 88302; 93005; A4216; J0131; J0690; J2250; J2405; J3010; J3490; J7030

== ENCOUNTER 2022-05-29 21:51 | Emergency (ER) | payer MEDICAID, SELFPAY ==
[2022-05-29 21:52] VITALS: BP 162/110; PULSE 101; RESP 16; TEMP 36.6; O2SAT 97; BMI 39.9
[2022-05-29 22:44] LABS: Basophils # 0.1 10^3/uL (0.0-0.1); Basophils % 0.5 %; Eosinophils # 0.2 10^3/uL (0.0-0.8); Eosinophils % 1.7 %; Hematocrit 40.8 % (37.0-47.0); Hemoglobin 13.6 g/dL (11.5-15.3); Lymphocytes # 3.1 10^3/uL (0.8-4.8); Lymphocytes % 28.1 %; Mean Corpuscular HGB Conc 33.3 g/dL (30.0-36.0); Mean Corpuscular Hemoglobin 29.9 pg (28.0-34.0); Mean Corpuscular Volume 89.7 fl (81-99); Mean Platelet Volume 10.1 fL (7.4-10.4); Monocytes # 0.7 10^3/uL (0.2-0.9); Monocytes % 6.7 %; Neutrophils % 62.6 %; Nucleated Red Blood Cells % 0 %; Platelet Count 278 10^3/cmm (130-400); Red Blood Count 4.55 10^6/uL (4.1-5.3); Red Cell Distribution Width 12.9 % (12.1-15.1)
[2022-05-29 23:01] LABS: Alanine Aminotransferase 32 U/L (0-33); Albumin Level 3.9 g/dL (3.5-5.2); Alkaline Phosphatase 118 U/L (35-105); Anion Gap 15.8 (5-19); Aspartate Amino Transferase 20 U/L (0-32); Blood Urea Nitrogen 13 mg/dL (6-20); Calcium 8.5 mg/dL (8.5-10.5); Carbon Dioxide 22 mmol/L (22-29); Chloride 105 mmol/L (98-107); Globulin 2.7 g/dL (1.3-4.6); Glomerular Filtration Rate 100.4 mL/min (90-130); Glucose 98 mg/dL (65-115); Lipase 23 U/L (13-60); Osmolality Calculated 288 mOsm/kg (285-295); Potassium 3.8 mmol/L (3.5-5.1); Sodium 139 mmol/L (136-145); Total Bilirubin 0.3 mg/dL (0.15-1.2); Total Protein 6.6 g/dL (6.6-8.7)
[2022-05-29 23:16] VITALS: BP 128/70; PULSE 83; O2SAT 96
--- NOTE | 2022-05-29 23:21 | ED_ITS ---
HPI - Abdominal Pain General: Chief Complaint: Abdominal Pain Stated Complaint: abd pain s/p surgery Time Seen by Provider: 05/29/22 21:56 Source: patient Mode of arrival: ambulatory Limitations: no limitations History of Present Illness: 26-year-old female who had a hysterectomy 1 week ago she states that today she has been having diffuse abdominal pain she rates a 5 out of 10. She states the pain is worse with movement improved with rest denies any vomiting denies any fever she is resting comfortably currently. Associated Symptoms: Denies chills, dysuria and fever(s) Review of Systems Const: Denies: fever(s), chills, body aches or change in appetite Eyes: Denies: blurry vision or eye discomfort ENMT: Denies: throat pain or dental pain Card: Denies: chest pain Resp: Denies: dyspnea GI: Reports: abdominal pain : Denies: dysuria Musc: Denies: neck pain or back pain Skin/Breast: Denies: rash Neuro: Denies: headache(s) Psych: Denies: depression Peter/Lymph: Denies: easy bruising All/Imm: Denies: urticaria PFSH ED PFSH: Medical History Family history of breast cancer in first degree relative Obesity, morbid, BMI 40.0-49.9 PCOS (polycystic ovarian syndrome) Reports being diagnosed with PCOS in 2019 with irregular bleeding after the Nexplanon was removed. This was diagnosed by a doctor in [place]. Surgical History History of arthroplasty of knee bilateral 2 times--both surgeries were performed in 2012 History of tonsillectomy At the age of 5-no complications Right radial fracture At the age of 7 which was repaired with surgery. Family History Grandmother Breast cancer maternal, diagnosed at age 30. She also had cervical cancer diagnosed at the age of 50. Mother Cancer thyroid cancer diagnosed in her 30s Breast cancer diagnosed at age 26--lump was palpated while patient was breast-feeding and she was diagnosed with cancer. Underwent lumpectomy with radiation and chemotherapy Hypertension Father Diabetes Hyperlipidemia Hypertension Obese Grandfather Diabetes maternal and paternal Hyperlipidemia paternal and maternal Hypertension maternal Denies family history of Colon cancer Ovarian cancer Heart disease Anesthesia complication Stroke Social History Second hand smoke exposure: No Smoking risk assessment/counseling performed?: No Alcohol intake: unknown Desire information about alcohol rehabilitation?: No Counseling given: No Desire information about substance/drug rehabilitation?: No Counseling given: No Adopted: No Caregiver/support person: No Lives independently: Yes Housing: House Marital status: Single Number of children: 2 service: No Current occupation: [employer] Pets and animals: Yes Female Reproductive History: Para: 1 Physical Exam Const: COMMON NORMALS: no acute distress, patient oriented x3 and healthy appearing HENMT: COMMON NORMALS: normocephalic and atraumatic HEAD & SCALP: normocephalic and atraumatic Eye: COMMON NORMALS: Equal, round and reactive pupils present and EOMs intact bilaterally PUPIL: Yes Equal, round and reactive pupils present Neck/C-Spine: COMMON NORMALS: full ROM and supple Chest: COMMONS NORMALS: normal inspection of the chest and normal palpation of entire chest wall Resp: COMMON NORMALS: normal respiratory effort, No retractions, No use of accessory muscles and clear to auscultation bilaterally AUSCULTATION: clear to auscultation bilaterally Cardio: COMMON NORMALS: regular rate, regular rhythm and No murmurs present (Cardio) RATE: regular rate RHYTHM: regular rhythm GI: COMMON NORMALS: Normal to inspection, nondistended, normoactive bowel sounds present, Soft to palpation and no masses PALPATION: Yes Soft to palpation OTHER: incisions c/d/i diffuse mild tenderness Extremity: COMMON NORMALS: normal to inspection and full ROM Neuro: COMMON NORMALS: patient oriented x3, moves all extremities and no focal motor deficits Psych: COMMON NORMALS: mental status grossly normal, Normal thought process present and cooperative THOUGHT PROCESS: Normal thought process present Skin: COMMON NORMALS: no rashes or lesions noted and no wounds GENERAL SKIN EXAM: no rashes or lesions noted Course Vital Signs: Vital signs: Vital Signs Temperature 97.8 F 05/29/22 21:52 Pulse Rate 83 05/29/22 23:16 Respiratory Rate 16 05/29/22 21:52 Blood Pressure 128/70 05/29/22 23:16 Pulse Oximetry 96 03/16/23 23:16 Oxygen Delivery Me thod 03/16/23 21:52 MDM - Abdominal Pain Medical Decision Making Patient presents here with abdominal pain blood work CT here are all normal is likely some postop pain her pains improved. She is stable for discharge she is to follow-up with her surgeon return if worsening. Lab Data 05/29/22 22:39 05/29/22 22:39 Labs/Radiology: Radiology Impressions Abdomen/Pelvis CT 05/29/22 23:38 IMPRESSION: 1. A 4.2 cm simple cyst of the right ovary. 2. Findings consistent with enteritis. Underdistension may present a similar picture. 3. Borderline prominent spleen, stable from the comparison study. Laboratory Results WBC 11.0 10^3/uL (4.0-10.0) H 05/29/22 22:39 RBC 4.55 10^6/uL (4.1-5.3) 05/29/22 22:39 Hgb 13.6 g/dL (11.5-15.3) 05/29/22 22:39 Hct 40.8 % (37.0-47.0) 05/29/22 22:39 MCV 89.7 fl (81-99) 05/29/22 22:39 MCH 29.9 pg (28.0-34.0) 05/29/22 22:39 MCHC 33.3 g/dL (30.0-36.0) 05/29/22 22:39 RDW 12.9 % (12.1-15.1) 05/29/22 22:39 Plt Count 278 10^3/cmm (130-400) 05/29/22 22:39 MPV 10.1 fL (7.4-10.4) 05/29/22 22:39 Neut % (Auto) 62.6 % 05/29/22 22:39 Lymph % (Auto) 28.1 % 05/29/22 22:39 Carver % (Auto) 6.7 % 05/29/22 22:39 Eos % (Auto) 1.7 % 05/29/22 22:39 Baso % (Auto) 0.5 % 05/29/22 22:39 Neut # (Auto) 6.90 10^3/uL (1.8-7.7) 05/29/22 22:39 Lymph # (Auto) 3.1 10^3/uL (0.8-4.8) 05/29/22 22:39 Carver # (Auto) 0.7 10^3/uL (0.2-0.9) 05/29/22 22:39 Eos # (Auto) 0.2 10^3/uL (0.0-0.8) 05/29/22 22:39 Baso # (Auto) 0.1 10^3/uL (0.0-0.1) 05/29/22 22:39 Nucleated RBC % (auto) 0 % 05/29/22 22:39 Nucleated RBCs # 0.0 /100WBC 05/29/22 22:39 Sodium 139 mmol/L (136-145) 05/29/22 22:39 Potassium 3.8 mmol/L (3.5-5.1) 05/29/22 22:39 Chloride 105 mmol/L (98-107) 05/29/22 22:39 Carbon Dioxide 22 mmol/L (22-29) 05/29/22 22:39 Anion Gap 15.8 (5-19) 05/29/22 22:39 BUN 13 mg/dL (6-20) 05/29/22 22:39 Creatinine 0.7 mg/dL (0.5-0.9) 05/29/22 22:39 GFR Calculation 100.4 mL/min (90-130) 05/29/22 22:39 Glucose 98 mg/dL (65-115) 05/29/22 22:39 Calculated Osmolality 288 mOsm/kg (285-295) 05/29/22 22:39 Calcium 8.5 mg/dL (8.5-10.5) 05/29/22 22:39 Total Bilirubin 0.3 mg/dL (0.15-1.2) 05/29/22 22:39 AST 20 U/L (0-32) 05/29/22 22:39 ALT 32 U/L (0-33) 05/29/22 22:39 Alkaline Phosphatase 118 U/L (35-105) H 05/29/22 22:39 Total Protein 6.6 g/dL (6.6-8.7) 05/29/22 22:39 Albumin 3.9 g/dL (3.5-5.2) 05/29/22 22:39 Globulin 2.7 g/dL (1.3-4.6) 05/29/22 22:39 Lipase 23 U/L (13-60) 05/29/22 22:39 Discharge Plan Discharge Patient Disposition: Home Clinical Impression: Abdominal pain Condition: Stable Prescriptions: No Action cephalexin 500 mg capsule 500 mg PO TID Qty: 21 0RF Discharge Orders: Discharge ED (Routine); Ordered 05/30/22 Ordered By: Ubaldo Owen Referrals: Fang Neely, [facility] [facility] [Primary Care Provider] - 1-3 days Discharge Diet: Advance as tolerated Discharge Activity: Resume usual activity Patient Instructions: Abdominal Pain (ED) Coding Level of Care Code ED It Technical Support Specialist for Melissa Nielsen
[2022-05-29] MEDS: sodium chloride 0.9% 1,000 ML 999 ML IV (23:36)
--- NOTE | 2022-05-29 23:38 | CTR_ITS ---
PROCEDURE INFORMATION: Exam: CT Abdomen And Pelvis With Contrast Exam date and time: 05/29/2022 11:58 PM Age: 26 years old Clinical indication: Abdominal pain; Generalized; Prior surgery; Surgery date: <1 month; Patient HX: C/O persistent diffuse abd pain since bilateral salpingectomy on 05/20/2022. TECHNIQUE: Imaging protocol: Computed tomography of the abdomen and pelvis with contrast. Radiation optimization: All CT scans at this facility use at least one of these dose optimization techniques: automated exposure control; mA and/or kV adjustment per patient size (includes targeted exams where dose is matched to clinical indication); or iterative reconstruction. Contrast material: OMNI 350; Contrast volume: 100 ml; Contrast route: INTRAVENOUS (IV); REPORTING DATA: Count of CT and Cardiac NM exams in prior 12 months: This patient has received 0 known CTs and 0 known cardiac nuclear medicine studies in the 12 months prior to the current study. COMPARISON: CT abdomen pelvis w con* [id number] 05/30/2019 9:31 PM RADIATION DOSE METRICS: Total DLP (mGy-cm): 1069.66 FINDINGS: Lungs: The visualized lung atkins show mild bibasilar atelectasis. Liver: The liver is normal in size. There are no enhancing liver masses. Gallbladder and bile ducts: The gallbladder is normal. No gallstones are identified. Pancreas: The pancreas is normal. Spleen: The spleen is borderline enlarged measuring 13.4 cm in length. Adrenal glands: The adrenal glands are normal. Kidneys and ureters: There is no hydronephrosis. No renal or obstructive ureteral calculi are identified. Stomach and bowel: There are multiple, small bowel loops with thickened farah consistent with enteritis (series 3, image 38; series 5, image 27). There is no evidence of small bowel or colonic obstruction. Appendix: No evidence of appendicitis. Intraperitoneal space: No free air. No significant fluid collection. Vasculature: There is no abdominal aortic aneurysm. Lymph nodes: No enlarged retroperitoneal or mesenteric lymph nodes. Urinary bladder: The bladder shows a normal contour and is free of calcific opacities. Reproductive: In the right ovary, there is a 3.6 x 3.6 x 4.2 cm simple appearing cyst. Bones/joints: No acute fracture. Soft tissues: Normal. CT/CT abdomen pelvis w con* [id number] IMPRESSION: 1. A 4.2 cm simple cyst of the right ovary. 2. Findings consistent with enteritis. Underdistension may present a similar picture. 3. Borderline prominent spleen, stable from the comparison study.
[2022-05-30] MEDS: iohexol 350 mg/mL 500 mL Btl (per mL) IV
[2022-05-30 01:17] LABS: Bilirubin Urine Neg (Negative); Blood Urine Trace (Negative); Glucose Urine UA Norm (Normal); Ketones Urine Negative (Negative); Nitrate Urine Positive (Negative); Protein Urine 1+ (Negative); Urine Appearance Clear (CLEAR); Urine Color Yellow (Yellow); Urobilinogen Urine 4 mg/dL (Negative); pH Urine 5 (5-7)
[2022-05-30 01:18] LABS: Add Urine Microscopic? YES; Leukocyte Esterase Urine 1+ (Negative)
[2022-05-30 01:19] LABS: Bacteria Urine 1+ /hpf
[2022-05-30 01:21] LABS: RBC Urine 0-4 /hpf (0-2); WBC Urine 0-4 /hpf (0-5)
[2022-05-30 01:25] VITALS: BP 120/61; PULSE 81; RESP 16; O2SAT 98
== END 2022-05-30 01:28 | disposition home or self-care (01) ==
PROVIDERS: Emergency Provider Emergency Medicine; PCP Nurse Practitioner
DX: R10.9 Unspecified abdominal pain (principal); N83.291 Other ovarian cyst, right side
CPT/HCPCS: 36415; 74177; 80053; 81001; 83690; 85025; 96360; 96361; 99285; J7030; Q9967

== ENCOUNTER → 2022-06-05 11:17 | Outpatient (BNVA) | payer MEDICAID, SELFPAY | PROVIDERS: PCP Nurse Practitioner; Visit Provider Family Medicine | DX: R10.9 Unspecified abdominal pain (principal) | CPT/HCPCS: 87077; 87086; 87184 ==

== ENCOUNTER 2022-06-18 07:32 | Outpatient (CLI) | payer MEDICAID, SELFPAY ==
--- NOTE | 2022-06-18 07:42 | NM_ITS ---
WS: [id number] NUCLEAR MEDICINE HIDA SCAN WITH GALLBLADDER EJECTION FRACTION HISTORY: RUQ PAIN COMPARISON: Gallbladder ultrasound 05/07/2022 TECHNIQUE: The patient was intravenously injected with 7.4 mCi of TC99m Mebrofenin. Immediate imaging over the right upper quadrant was followed by 5 minute image and additional images for a total of 60 minutes. Normal uptake of radiotracer throughout the liver. Activity identified in the gallbladder at 10 minutes and well distended by 60 minutes. Activity in the proximal small bowel was seen by 20 minutes. Good washout of the radiotracer from the liver by 60 minutes. The patient then drank 8 ounces of Ensure Plus. Ejection fraction at 60 minutes was 52%. Normal GB ej ection fraction is 35-75%. Post fatty meal symptoms: None. NM/NM hepatobiliary w phar* [id number] IMPRESSION: 1. Normal HIDA scan. 2. Normal gallbladder ejection fraction.
== END 2022-06-18 07:33 | disposition home or self-care (01) ==
LOC: RAD 07:33
PROVIDERS: PCP Nurse Practitioner; Visit Provider Nurse Practitioner
DX: R10.11 Right upper quadrant pain (principal)
CPT/HCPCS: 78227; A9537

== ENCOUNTER 2022-10-27 14:28 | Emergency (ER) | payer MEDICAID, SELFPAY ==
[2022-10-27 14:31] VITALS: BP 132/85; PULSE 96; RESP 18; TEMP 36.8; O2SAT 97; BMI 38.7
--- NOTE | 2022-10-27 14:35 | ECG_ITS ---
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 Measurements Intervals [place] Rate: 99 P: 62 UT: 142 QRS: 75 QRSD: 81 T: 47 QT: 332 QTc: 426 Interpretive Statements SINUS RHYTHM Compared to ECG 05/20/2022 06:44:01 Sinus arrhythmia no longer present Electronically Signed On 10-28-2022 3:50:23 CDT by Lulu Verdugo M.D. [id number]
--- NOTE | 2022-10-27 14:40 | XR_ITS ---
WS: [id number] PORTABLE CHEST HISTORY: dyspnea/cough COMPARISON: 02/21/2022 Lungs are clear and well expanded. No pleural effusion or pneumothorax. Cardiac size: Normal. Mediastinum/Aorta: Normal mediastinum. No osseous abnormality seen. Soft tissue artifacts over the chest are probably from patient's clothing. IMPRESSION: Unremarkable portable chest.
--- NOTE | 2022-10-27 14:41 | W.ED.CHESTPA ---
HPI - Chest Pain General: Chief Complaint: Chest Pain Stated Complaint: chest pain2 Time Seen by Provider: 10/27/22 14:40 Source: patient Mode of arrival: ambulatory History of Present Illness: 27-year-old female presents emergency room complaining episode of chest pain again around 630 this morning she took a cough cold medication and later this morning. She has been having cough cold runny nose symptoms for a couple of days. She states she has a history of atrial fibrillation she thought she may be coming out of A-fib states she felt very tired. She has been in normal sinus rhythm when she first arrived and remained so after arriving here. She was previously on metoprolol but has not taken any for a year according to her prescription refill she tells me its been a few months. She has not been on any anticoagulants. She states she feels off and Timing of current episode: episodic Onset: during rest Pain radiation: none Severity: mild Relieving factors: nothing Exacerbating factors: nothing Associated symptoms: Deny abdominal pain, diaphoresis, dyspnea, fever(s), leg edema, nausea, palpitations, sense of impending doom, syncope or vomiting Review of Systems Const: Denies: fever(s), chills, fatigue, malaise or diaphoresis ENMT: Denies: throat pain, ear or mastoid pain, nasal discharge or nasal congestion Card: Reports: chest pain; Denies: palpitations, irregular heart rhythm, edema, swelling of feet/ankles or syncope Resp: Denies: dyspnea, productive cough or non-productive cough GI: Denies: abdominal pain, nausea or vomiting : Denies: flank pain, difficulty voiding, dysuria, urinary frequency or urinary urgency Skin/Breast: Denies: rash or pruritus PFSH ED PFSH: Medical History Family history of breast cancer in first degree relative Obesity, morbid, BMI 40.0-49.9 PCOS (polycystic ovarian syndrome) Reports being diagnosed with PCOS in 2019 with irregular bleeding after the Nexplanon was removed. This was diagnosed by a doctor in [place]. Surgical History History of arthroplasty of knee bilateral 2 times--both surgeries were performed in 2012 History of tonsillectomy At the age of 5-no complications Right radial fracture At the age of 7 which was repaired with surgery. Family History Grandmother Breast cancer maternal, diagnosed at age 30. She also had cervical cancer diagnosed at the age of 50. Mother Cancer thyroid cancer diagnosed in her 30s Breast cancer diagnosed at age 27--lump was palpated while patient was breast-feeding and she was diagnosed with cancer. Underwent lumpectomy with radiation and chemotherapy Hypertension Father Diabetes Hyperlipidemia Hypertension Obese Grandfather Diabetes maternal and paternal Hyperlipidemia paternal and maternal Hypertension maternal Denies family history of Colon cancer Ovarian cancer Heart disease Anesthesia complication Stroke Social History Substance/Drug Use: unknown Do you think of yourself as: Straight/Heterosexual Female Reproductive History: Para: 2 Physical Exam Const: GENERAL APPEARANCE: cooperative and comfortable ORIENTATION/CONSCIOUSNESS: Yes awake, Yes oriented to person, Yes oriented to place and Yes oriented to time HENMT: COMMON NORMALS: normocephalic, atraumatic and hearing grossly normal bilaterally HEAD & SCALP: normocephalic and atraumatic Resp: COMMON NORMALS: normal respiratory effort, No retractions, No use of accessory muscles and clear to auscultation bilaterally AUSCULTATION: clear to auscultation bilaterally Cardio: COMMON NORMALS: regular rate, regular rhythm and No murmurs present (Cardio) RATE: regular rate RHYTHM: regular rhythm GI: COMMON NORMALS: Soft to palpation and No hepatosplenomegaly present AUSCULTATION: Yes normoactive bowel sounds PALPATION: Yes Soft to palpation, No Tenderness to palpation present (GI), No Guarding due to palpation present (GI) and Yes No hepatosplenomegaly present Extremity: COMMON NORMALS: normal to inspection, capillary refill normal, no clubbing, cyanosis or edema, no calf tenderness and no pedal edema Neuro: SENSORIUM/ORIENTATION: Yes oriented to person, Yes oriented to place and Yes oriented to time Skin: COMMON NORMALS: no rashes or lesions noted GENERAL SKIN EXAM: no rashes or lesions noted Course Vital Signs: Vital signs: Vital Signs Temperature 98.2 F 10/27/22 14:31 Pulse Rate 77 10/27/22 15:44 Respiratory Rate 17 10/27/22 15:44 Blood Pressure 141/76 10/27/22 15:44 Pulse Oximetry 99 10/27/22 15:44 Oxygen Delivery Me thod Room Air 10/27/22 14:31 MDM - Chest Pain Medical Decision Making Patient has some palpitations but no demonstrable arrhythmia on monitor while in the emergency room. Labs and imaging reviewed with patient EKG does not show any acute changes and normal sinus rhythm. Discharge patient home set her up for an outpatient 48-hour Holter monitor avoid any stimulants particular the cough cold medication she has been taking. Follow-up with your primary care doctor. Medical Records I reviewed the patient's medical records. Lab Data I reviewed the patient's lab results. 10/27/22 14:55 10/27/22 14:55 Laboratory Results WBC 8.3 10^3/uL (4.0-10.0) 10/27/22 14:55 RBC 4.60 10^6/uL (4.1-5.3) 10/27/22 14:55 Hgb 13.7 g/dL (11.5-15.3) 10/27/22 14:55 Hct 41.3 % (37.0-47.0) 10/27/22 14:55 MCV 89.8 fl (81-99) 10/27/22 14:55 MCH 29.8 pg (28.0-34.0) 10/27/22 14:55 MCHC 33.2 g/dL (30.0-36.0) 10/27/22 14:55 RDW 13.0 % (12.1-15.1) 10/27/22 14:55 Plt Count 253 10^3/cmm (130-400) 10/27/22 14:55 MPV 9.9 fL (7.4-10.4) 10/27/22 14:55 Neut % (Auto) 68.5 % 10/27/22 14:55 Lymph % (Auto) 21.8 % 10/27/22 14:55 [place] % (Auto) 6.7 % 10/27/22 14:55 Eos % (Auto) 2.2 % 10/27/22 14:55 Baso % (Auto) 0.6 % 10/27/22 14:55 Neut # (Auto) 5.71 10^3/uL (1.8-7.7) 10/27/22 14:55 Lymph # (Auto) 1.8 10^3/uL (0.8-4.8) 10/27/22 14:55 [place] # (Auto) 0.6 10^3/uL (0.2-0.9) 10/27/22 14:55 Eos # (Auto) 0.2 10^3/uL (0.0-0.8) 10/27/22 14:55 Baso # (Auto) 0.1 10^3/uL (0.0-0.1) 10/27/22 14:55 Nucleated RBC % (auto) 0 % 10/27/22 14: Nucleated RBCs # 0.0 /100WBC 10/27/22 14:55 Sodium 139 mmol/L (136-145) 10/27/22 14:55 Potassium 3.6 mmol/L (3.5-5.1) 10/27/22 14:55 Chloride 104 mmol/L (98-107) 10/27/22 14:55 Carbon Dioxide 23 mmol/L (22-29) 10/27/22 14:55 Anion Gap 15.6 (5-19) 10/27/22 14:55 BUN 16 mg/dL (6-20) 10/27/22 14:55 Creatinine 0.9 mg/dL (0.5-0.9) 10/27/22 14:55 GFR Calculation 74.6 mL/min (90-130) L 10/27/22 14:55 Glucose 124 mg/dL (65-115) H 10/27/22 14:55 Calculated Osmolality 291 mOsm/kg (285-295) 10/27/22 14:55 Calcium 8.6 mg/dL (8.5-10.5) 10/27/22 14:55 Total Bilirubin 0.5 mg/dL (0.15-1.2) 10/27/22 14:55 AST 14 U/L (0-32) 10/27/22 14:55 ALT 23 U/L (0-33) 10/27/22 14:55 Alkaline Phosphatase 92 U/L (35-105) 10/27/22 14:55 Troponin T Baseline 6 ng/L (0-10) 10/27/22 14:55 Total Protein 6.5 g/dL (6.6-8.7) L 10/27/22 14:55 Albumin 4.2 g/dL (3.5-5.2) 10/27/22 14:55 Globulin 2.3 g/dL (1.3-4.6) 10/27/22 14:55 TSH 0.73 uIU/mL (0.27-4.20) 10/27/22 14:55 Discharge Plan Discharge Patient Disposition: Home Clinical Impression: Palpitations, Medication side effects Condition: Stable Prescriptions: No Action Vicks DayQuil Cold-Flu Relief 5-10-325 mg Capsule 2 cap PO .ONE TIME DOSE Discharge Orders: Discharge ED (Routine); Ordered 10/27/22 Ordered By: Wale Guidry Referrals: Fang Neely, [employer] [Primary Care Provider] - Discharge Diet: Usual diet Discharge Activity: Resume usual activity Patient Instructions: Opioid Safety, Pain Management Activity Restrictions/Additional Instructions: You are seen today for concerns about palpitations and possible atrial fibrillation. Your EKG and rhythm strip while you are in the emergency room did not show any atrial fibrillation. Recommend you avoid [id number] cough cold remedies with stimulants such as phenylephrine or pseudoephedrine. Case management make arrangements for you to have an outpatient 48-hour Holter monitor to further monitor for arrhythmias. Coding Level of Care Code ED Tugboat Mate for Melissa Nielsen
[2022-10-27 15:05] LABS: Basophils # 0.1 10^3/uL (0.0-0.1); Basophils % 0.6 %; Eosinophils # 0.2 10^3/uL (0.0-0.8); Eosinophils % 2.2 %; Hematocrit 41.3 % (37.0-47.0); Hemoglobin 13.7 g/dL (11.5-15.3); Lymphocytes # 1.8 10^3/uL (0.8-4.8); Lymphocytes % 21.8 %; Mean Corpuscular HGB Conc 33.2 g/dL (30.0-36.0); Mean Corpuscular Hemoglobin 29.8 pg (28.0-34.0); Mean Corpuscular Volume 89.8 fl (81-99); Mean Platelet Volume 9.9 fL (7.4-10.4); Monocytes # 0.6 10^3/uL (0.2-0.9); Monocytes % 6.7 %; Neutrophils # 5.71 10^3/uL (1.8-7.7); Neutrophils % 68.5 %; Nucleated Red Blood Cells % 0 %; Platelet Count 253 10^3/cmm (130-400); White Blood Count 8.3 10^3/uL (4.0-10.0)
[2022-10-27 15:33] LABS: Alanine Aminotransferase 23 U/L (0-33); Albumin Level 4.2 g/dL (3.5-5.2); Alkaline Phosphatase 92 U/L (35-105); Anion Gap 15.6 (5-19); Aspartate Amino Transferase 14 U/L (0-32); Blood Urea Nitrogen 16 mg/dL (6-20); Calcium 8.6 mg/dL (8.5-10.5); Carbon Dioxide 23 mmol/L (22-29); Chloride 104 mmol/L (98-107); Globulin 2.3 g/dL (1.3-4.6); Glomerular Filtration Rate 74.6 mL/min (90-130); Glucose 124 mg/dL (65-115); Osmolality Calculated 291 mOsm/kg (285-295); Potassium 3.6 mmol/L (3.5-5.1); Sodium 139 mmol/L (136-145); Total Bilirubin 0.5 mg/dL (0.15-1.2); Total Protein 6.5 g/dL (6.6-8.7)
[2022-10-27 15:35] LABS: Troponin(5th) Baseline 6 ng/L (0-10)
[2022-10-27 15:44] VITALS: BP 141/76; PULSE 77; RESP 17; O2SAT 99
[2022-10-27 15:45] LABS: Thyroid Stimulating Hormone 0.73 uIU/mL (0.27-4.20)
--- NOTE | 2022-10-28 12:32 | DCPLANNER ---
Addendum entered by Tashia White 11/14/22 10:26: Patient did attend this appointment with heart care Addendum entered by Tashia White 10/30/22 11:00: Patient has a follow up appointment scheduled for October at 1:00 at heart care. Original Note: data management manager had message to schedule a follow up appointment with heart care for a 48 hour halter monitor. data management manager faxed signed order to heart care, who will call patient with appointment information.
== END 2022-10-27 16:40 | disposition home or self-care (01) ==
PROVIDERS: Emergency Provider Family Medicine; PCP Nurse Practitioner
DX: R00.2 Palpitations (principal); T88.7XXA Unspecified adverse effect of drug or medicament, initial encounter; T50.905A Adverse effect of unspecified drugs, medicaments and biological substances, initial encounter
CPT/HCPCS: 71045; 80053; 84443; 84484; 85025; 93005; 99285

== ENCOUNTER 2022-10-30 10:42 | Outpatient (CLI) | payer MEDICAID, SELFPAY ==
--- NOTE | 2022-10-30 11:02 | XR_ITS ---
WS: [id number] Left wrist, 3 views, 10/30/2022 Clinical Data: S69.92XA - Unspecified injury of left wrist, hand and fin... Comparison: None. Findings: No fractures or dislocations are seen. The carpal bones are intact. There is no soft tissue swelling. The distal radius and ulna are not remarkable. There is a small calcification beyond the tip of the left radial styloid from an old injury. Impression: Negative left wrist.
== END 2022-10-30 10:43 | disposition home or self-care (01) ==
LOC: RAD 10:43
PROVIDERS: PCP Nurse Practitioner; Visit Provider Nurse Practitioner Family
DX: S69.92XA Unspecified injury of left wrist, hand and finger(s), initial encounter (principal); X58.XXXA Exposure to other specified factors, initial encounter
CPT/HCPCS: 73110

== ENCOUNTER 2022-11-25 09:25 | Emergency (ER) | payer MEDICAID, SELFPAY ==
--- NOTE | 2022-11-25 09:32 | ECG_ITS ---
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 Measurements Intervals [place] Rate: 79 P: 10 [place]: 132 QRS: 67 QRSD: 80 T: 38 QT: 351 QTc: 403 Interpretive Statements SINUS RHYTHM Compared to ECG 10/27/2022 14:38:11 No significant changes Electronically Signed On 11-25-2022 11:05:24 CDT by Colby Schwartz M.D. [id number]
[2022-11-25 09:33] VITALS: BP 136/86; PULSE 84; RESP 16; TEMP 36.7; O2SAT 98; BMI 41.9
--- NOTE | 2022-11-25 09:38 | ED_ITS ---
HPI - Chest Pain General: Chief Complaint: Chest Pain Stated Complaint: chest pain Time Seen by Provider: 11/25/22 09:27 Source: patient Mode of arrival: ambulatory Limitations: no limitations History of Present Illness: Patient is a 27-year-old female presents to ED today with a complaint of chest pain that began at rest while at work approximately 2 hours ago. She states pain is located substernal and sharp. She feels like talking and movement seem to exacerbate her pain. She is not having any shortness of breath or difficulty breathing. Patient states she has a history of intermittent atrial fibrillation. This is not treated with any medication at this time. Patient recently underwent Holter monitor and has follow-up with after school caregiver Dr. Verdugo on Thursday for this. Patient denies lightheadedness, dizziness, passing out episodes. Looking at previous documentation patient has been seen here a few times for complaints of chest pain. She always has had a negative cardiac work- up on these visits. MD complaint: chest pain Onset (ago): hour(s) Timing of current episode: constant Prior episodes: Yes Onset: during rest Pain location: substernal Pain radiation: none Severity: severe Pain scale (0-10): 7 Quality: sharp Relieving factors: movement and other (talking) Exacerbating factors: nothing Associated symptoms: Reports no associated symptoms; Deny abdominal pain, dyspnea, fever(s), nausea, palpitations, syncope or vomiting Treatment prior to arrival: none Risk Factors: Coronary artery disease risk factors: none Thoracic aortic dissection risk factors: none Related Data: On Oral Contraceptives: No Review of Systems Const: Denies: fever(s), chills, body aches, fatigue or malaise Card: Reports: chest pain; Denies: palpitations, irregular heart rhythm, edema, swelling of feet/ankles, lightheadedness, syncope, pre-syncope, dyspnea on exertion, orthopnea, leg pain with exertion or acrocyanosis Resp: Denies: dyspnea, productive cough, non-productive cough, wheezing, change in phlegm color, hemoptysis or chest congestion GI: Denies: abdominal pain, nausea, vomiting or diarrhea : Denies: flank pain, dysuria or hematuria Musc: Denies: neck pain, back pain, extremity pain, extremity swelling, joint pain, joint swelling, joint redness or joint warmth Skin/Breast: Denies: rash Neuro: Denies: headache(s), numbness in extremities, weakness in extremities, sensory changes or dizziness PFSH ED PFSH: Medical History Family history of breast cancer in first degree relative Obesity, morbid, BMI 40.0-49.9 PCOS (polycystic ovarian syndrome) Reports being diagnosed with PCOS in 2019 with irregular bleeding after the Nexplanon was removed. This was diagnosed by a doctor in [place]. Surgical History History of arthroplasty of knee bilateral 2 times--both surgeries were performed in 2012 History of tonsillectomy At the age of 5-no complications Right radial fracture At the age of 7 which was repaired with surgery. Family History Grandmother Breast cancer maternal, diagnosed at age 30. She also had cervical cancer diagnosed at the age of 50. Mother Cancer thyroid cancer diagnosed in her 30s Breast cancer diagnosed at age 27--lump was palpated while patient was breast-feeding and she was diagnosed with cancer. Underwent lumpectomy with radiation and chemotherapy Hypertension Father Diabetes Hyperlipidemia Hypertension Obese Grandfather Diabetes maternal and paternal Hyperlipidemia paternal and maternal Hypertension maternal Denies family history of Colon cancer Ovarian cancer Heart disease Anesthesia complication Stroke Social History Substance/Drug Use: unknown Do you think of yourself as: Straight/Heterosexual Female Reproductive History: Para: 2 Physical Exam Const: COMMON NORMALS: no acute distress, patient oriented x3, no limitations, alert and well nourished GENERAL APPEARANCE: cooperative NUTRITIONAL APPEARANCE: obese ORIENTATION/CONSCIOUSNESS: Yes awake, Yes oriented to person, Yes oriented to place and Yes oriented to time HENMT: COMMON NORMALS: normocephalic and atraumatic HEAD & SCALP: normal to inspection, normocephalic and atraumatic Neck/C-Spine: COMMON NORMALS: full ROM, no lymphadenopathy, supple, no meningeal signs, no JVD, Thyroid normal and No carotid bruits THYROID: Thyroid normal Chest: COMMONS NORMALS: normal inspection of the chest Chest images (female): 1. palpation directly reproduces patient's pain Resp: COMMON NORMALS: normal respiratory effort and clear to auscultation bilaterally AUSCULTATION: clear to auscultation bilaterally Cardio: COMMON NORMALS: no JVD, regular rate and regular rhythm RATE: regular rate RHYTHM: regular rhythm GI: COMMON NORMALS: Normal to inspection, nondistended, normoactive bowel s ounds present, Soft to palpation, No hepatosplenomegaly present and no masses INSPECTION: Yes normal to inspection PALPATION: Yes Soft to palpation, Yes Tenderness to palpation present (GI) (epigastric-mild; non-surgical), No Guarding due to palpation present (GI), No Rigid due to palpation and Yes No hepatosplenomegaly present : COMMON NORMALS: Yes no CVA tenderness BLADDER/KIDNEY EXAM: Yes no CVA tenderness Back/Pelvis: COMMON NORMALS: no CVA tenderness Extremity: COMMON NORMALS: normal to inspection GENERAL: Yes normal exam except as noted Neuro: SUZANNE COMA SCALE: document GCS findings [place] coma scale eye opening: Spontaneous Suzanne coma scale verbal response: Orientated Suzanne coma scale motor response: Obey commands Suzanne coma scale total score: 15 COMMON NORMALS: patient oriented x3, moves all extremities, no focal motor deficits and no sensory deficits noted SENSORIUM/ORIENTATION: Yes alert, Yes oriented to person, Yes oriented to place and Yes oriented to time MENINGEAL SIGNS: Yes no meningeal signs Skin: COMMON NORMALS: no rashes or lesions noted GENERAL SKIN EXAM: no rashes or lesions noted Course Vital Signs: Vital signs: Vital Signs Temperature 98.0 F 11/25/22 09:33 Pulse Rate 64 11/25/22 10:55 Respiratory Rate 16 11/25/22 10:55 Blood Pressure 125/86 11/25/22 10:55 Pulse Oximetry 96 11/25/22 10:55 Oxygen Delivery Me thod Room Air 11/25/22 10:55 MDM - Chest Pain Medical Decision Making Chest pain is easily reproducible on exam. After GI cocktail and IM Toradol she is now rating her pain at a 3/10 versus a 7?8/10 upon arrival. Patient has no risk factors for acute coronary syndrome. I have no suspicion for dissection/aneurysm/pulmonary emboli. Her EKG and CXR are normal. She has cardiology follow-up already scheduled for Thursday. She is stable from an emergency standpoint for discharge. Return to ED precautions given. Discharge Plan Discharge Patient Disposition: Home Clinical Impression: Atypical chest pain Condition: Stable Discharge Orders: Discharge ED (Routine); Ordered 11/25/22 Ordered By: Mona Moss Referrals: Fang Neely, HOT STONE SETTER-C [Primary Care Provider] - Coding Level of Care Code ED Head Host/Hostess for Melissa Nielsen
--- NOTE | 2022-11-25 09:46 | XR_ITS ---
WS: [id number] Exam: XR chest 1V portable [id number] Date/Time of Exam: 11/25/2022 9:48 AM Reason For Exam: chest pain Comparison 10/27/2022. Findings: The lungs are clear and fully expanded. Costophrenic angles are sharp. No infiltrates. Bronchovascula r relief appears normal. Cardiac silhouette is unremarkable. Bony elements are intact. IMPRESSION: Unremarkable chest radiograph.
[2022-11-25] MEDS: ketorolac 60 mg/2 mL INJ IM (10:12)
[2022-11-25] MEDS: lidocaine 2% viscous 15 ML, aluminum-mag hydrox-simethicon 30 ML, sucralfate oral liq 1 GM PO (10:13)
[2022-11-25 10:55] VITALS: BP 125/86; PULSE 64; RESP 16; O2SAT 96
== END 2022-11-25 11:05 | disposition home or self-care (01) ==
PROVIDERS: Emergency Provider Physician Assistant; PCP Nurse Practitioner
DX: R07.89 Other chest pain (principal)
CPT/HCPCS: 71045; 93005; 96372; 99284; J1885

== ENCOUNTER 2023-01-07 17:41 | Emergency (ER) | payer MEDICAID, SELFPAY ==
[2023-01-07 18:15] VITALS: BP 137/85; PULSE 98; RESP 18; TEMP 36.8; O2SAT 98
--- NOTE | 2023-01-07 18:28 | W.ED.EXTPRO ---
HPI - Extremity Problem General: Chief complaint: Extremity Problem,Nontraumatic Stated complaint: Left Arm Injury Time Seen by Provider: 01/07/23 18:21 History of Present Illness: Patient presents to the ER with complaints of left thumb pain. Patient states she is swinging a hammer approximate week ago and hyperextended her left thumb. She states her left thumb actually touched her left forearm. Is been hurting and painful ever since patient is not hurting in the thumb area as much as the tendon in the wrist forearm area. Patient does a lot of typing and seems to be typing and moving her thumb makes it worse. Review of Systems General: Reports: 10 or more systems reviewed and unremarkable except in HPI and below PFSH ED PFSH: Medical History Family history of breast cancer in first degree relative Obesity, morbid, BMI 40.0-49.9 PCOS (polycystic ovarian syndrome) Reports being diagnosed with PCOS in 2019 with irregular bleeding after the Nexplanon was removed. This was diagnosed by a doctor in [place]. Surgical History History of arthroplasty of knee bilateral 2 times--both surgeries were performed in 2012 History of tonsillectomy At the age of 5-no complications Right radial fracture At the age of 7 which was repaired with surgery. Family History Grandmother Breast cancer maternal, diagnosed at age 30. She also had cervical cancer diagnosed at the age of 50. Mother Cancer thyroid cancer diagnosed in her 30s Breast cancer diagnosed at age 27--lump was palpated while patient was breast-feeding and she was diagnosed with cancer. Underwent lumpectomy with radiation and chemotherapy Hypertension Father Diabetes Hyperlipidemia Hypertension Obese Grandfather Diabetes maternal and paternal Hyperlipidemia paternal and maternal Hypertension maternal Denies family history of Colon cancer Ovarian cancer Heart disease Anesthesia complication Stroke Social History Substance/Drug Use: unknown Do you think of yourself as: Straight/Heterosexual Female Reproductive History: Para: 2 Physical Exam Const: COMMON NORMALS: no acute distress, average body habitus, patient oriented x3, no limitations, healthy appearing, alert and well nourished Neck/C-Spine: COMMON NORMALS: no JVD Chest: COMMONS NORMALS: normal inspection of the chest Resp: COMMON NORMALS: normal respiratory effort, No retractions and No use of accessory muscles Cardio: COMMON NORMALS: no JVD, regular rate and regular rhythm RATE: regular rate RHYTHM: regular rhythm GI: COMMON NORMALS: Normal to inspection, nondistended, normoactive bowel sounds present Extremity: OTHER: Tender over the distal tenderness region of the thumb. No bony tenderness noted. No obvious to crepitus noted. Neuro: COMMON NORMALS: patient oriented x3 SENSORIUM/ORIENTATION: Yes alert Course Vital Signs: Vital signs: Vital Signs Temperature 98.3 F 01/07/23 18:15 Pulse Rate 98 01/07/23 18:15 Respiratory Rate 18 01/07/23 18:15 Blood Pressure 137/85 01/07/23 18:15 Pulse Oximetry 98 01/07/23 18:15 Oxygen Delivery Me thod Room Air 01/07/23 18:15 MDM - Extremity (Nontraumatic) Medical Decision Making Patient appears to have strained her thumb tendon. Patient will be placed in a wrist splint with thumb spica to be worn for the next week. Patient is instructed to take ibuprofen 3 times a day for the next week. Patient is to follow-up with her PCP on an as-needed basis. Differential Diagnosis Unlikely herpes zoster, gout, cellulitis, superficial thrombophlebitis, deep venous thrombosis of upper extremity, lower extremity edema or deep vein thrombosis of lower extremity Medical Records I reviewed the patient's medical records. Lab Data I reviewed the patient's lab results. No radiology studies performed this visit Discharge Plan Discharge Patient Disposition: Home Clinical Impression: Left thumb sprain Qualifiers: Encounter type: initial encounter Sprain of finger site: unspecified site Qualified Code(s): S63.602A - Unspecified sprain of left thumb, initial encounter Condition: Stable Prescriptions: No Action diltiazem HCl [Cardizem] 30 mg tablet 30 mg PO BID Qty: 60 3RF Discharge Orders: Discharge ED (Routine); Ordered 01/07/23 Ordered By: Mian Nava Referrals: Fang Neely, PANTOGRAPH MACHINE SET UP OPERATOR-C [Primary Care Provider] - 7-10 days Patient Instructions: Sprains - Finger Activity Restrictions/Additional Instructions: Please wear wrist splint with thumb spica at all times for the next 7 days. Please use ibuprofen for total of 800 mg 3 times a day for the next 7 days. Please follow-up with your family practice physician or nurse practitioner in 7 to 10 days for further evaluation and treatment. Coding Level of Care Code ED Pre Planning Advisor for Melissa Nielsen
--- NOTE | 2023-01-07 18:41 | PC.NURSE ---
RN AT BEDSIDE, SPILT PLACED ON PATIENT LEFT HAND AND WRIST. PATIENT PULSES EQUAL.
== END 2023-01-07 18:42 | disposition home or self-care (01) ==
PROVIDERS: Emergency Provider Emergency Medicine; PCP Nurse Practitioner
DX: S63.602A Unspecified sprain of left thumb, initial encounter (principal); X50.9XXA Other and unspecified overexertion or strenuous movements or postures, initial encounter
CPT/HCPCS: 99282

== ENCOUNTER → 2023-01-13 10:00 | Outpatient (BNVA) | payer MEDICAID, SELFPAY | PROVIDERS: PCP Nurse Practitioner; Visit Provider Nurse Practitioner Women's Health | DX: Z11.3 Encounter for screening for infections with a predominantly sexual mode of transmission (principal); T83.32XA Displacement of intrauterine contraceptive device, initial encounter; X58.XXXA Exposure to other specified factors, initial encounter | CPT/HCPCS: 86592; 86803; 87340; 87806 ==

== ENCOUNTER 2023-01-14 19:41 | Emergency (ER) | payer MEDICAID, SELFPAY ==
[2023-01-14 19:43] VITALS: BP 127/75; PULSE 91; RESP 18; TEMP 36.9; O2SAT 100; BMI 38.7
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
[2023-01-14 20:24] VITALS: BP 127/75; PULSE 91; RESP 18; TEMP 36.9; O2SAT 100
== END 2023-01-14 20:24 | disposition home or self-care (01) ==
PROVIDERS: Emergency Provider Emergency Medicine; PCP Nurse Practitioner
DX: S05.01XA Injury of conjunctiva and corneal abrasion without foreign body, right eye, initial encounter (principal); Y04.2XXA Assault by strike against or bumped into by another person, initial encounter
CPT/HCPCS: 99282

== ENCOUNTER 2023-02-11 23:08 | Emergency (ER) | payer MEDICAID, SELFPAY ==
--- NOTE | 2023-02-11 23:09 | XRR_ITS ---
PROCEDURE INFORMATION: Exam: XR Chest Exam date and time: 02/11/2023 11:23 PM Age: 27 years old Clinical indication: Chest wall pain; Additional info: Cp TECHNIQUE: Imaging protocol: Radiologic exam of the chest. Views: 1 view. COMPARISON: CR XR chest 1V portable [id number] 11/25/2022 9:49 AM FINDINGS: Lungs: Unremarkable. No consolidation. Pleural spaces: Unremarkable. No pleural effusion. No pneumothorax. Heart/Mediastinum: Unremarkable. No cardiomegaly. Bones/joints: Unremarkable. XR/XR chest 1V portable [id number] IMPRESSION: No acute findings.
--- NOTE | 2023-02-11 23:13 | ECG_ITS ---
[facility] Test Date: 2023-02-11 Pat Name: Estefany Foss Department: Room: Gender: Female Agronomy Teacher: : 1995 Requested By: Ubaldo Owen Order Number: [id number] Nic MD: Lulu Verdugo M.D. Measurements Intervals [place] Rate: 85 P: 25 PA: 124 QRS: 80 QRSD: 86 T: 56 QT: 342 QTc: 407 Interpretive Statements SINUS RHYTHM Compared to ECG 11/25/2022 09:32:35 No significant changes Electronically Signed On 02-12-2023 15:31:29 MANAGER ASSURANCE by Lulu Verdugo M.D. [email or web address]
[2023-02-11 23:16] VITALS: BP 142/78; PULSE 101; RESP 22; TEMP 36.6; O2SAT 98
--- NOTE | 2023-02-11 23:28 | W.ED.CHESTPA ---
HPI - Chest Pain General: Chief Complaint: Chest Pain Stated Complaint: CP Time Seen by Provider: 02/11/23 23:09 Source: patient Mode of arrival: ambulatory Limitations: no limitations History of Present Illness: 19-year-old female is here by EMS she has been having chest pain over the last 3 hours patient here appears extremely anxious she is very tachypneic tachycardic speak in only a few word sentences. States been having sharp chest pains and shortness of breath over the last 3 hours denies any cough or fever denies any worsening improving factors Associated symptoms: Reports dyspnea; Deny abdominal pain, fever(s), nausea or vomiting Review of Systems Const: Denies: fever(s) or chills ENMT: Denies: throat pain or dental pain Card: Reports: chest pain Resp: Reports: dyspnea GI: Denies: abdominal pain, nausea, vomiting or diarrhea : Denies: dysuria Musc: Denies: neck pain or back pain Skin/Breast: Denies: rash Neuro: Denies: headache(s) Psych: Denies: depression PFSH ED PFSH: Medical History Obesity, morbid, BMI 40.0-49.9 Family history of breast cancer in first degree relative PCOS (polycystic ovarian syndrome) Reports being diagnosed with PCOS in 2019 with irregular bleeding after the Nexplanon was removed. This was diagnosed by a doctor in [place]. Surgical History H/O tubal ligation (~05/2022) Right radial fracture At the age of 7 which was repaired with surgery. History of tonsillectomy At the age of 5-no complications History of arthroplasty of knee bilateral 2 times--both surgeries were performed in 2013 Family History Grandmother Breast cancer maternal, diagnosed at age 30. She also had cervical cancer diagnosed at the age of 50. Mother Cancer thyroid cancer diagnosed in her 30s Breast cancer diagnosed at age 27--lump was palpated while patient was breast-feeding and she was diagnosed with cancer. Underwent lumpectomy with radiation and chemotherapy Hypertension Father Diabetes Hyperlipidemia Hypertension Obese Grandfather Diabetes maternal and paternal Hyperlipidemia paternal and maternal Hypertension maternal Denies family history of Colon cancer Ovarian cancer Heart disease Anesthesia complication Stroke Female Reproductive History: Para: 2 Physical Exam Const: COMMON NORMALS: patient oriented x3 GENERAL APPEARANCE: anxious HENMT: COMMON NORMALS: normocephalic and atraumatic HEAD & SCALP: normocephalic and atraumatic Eye: COMMON NORMALS: Equal, round and reactive pupils present and EOMs intact bilaterally PUPIL: Yes Equal, round and reactive pupils present Neck/C-Spine: COMMON NORMALS: full ROM and supple Chest: COMMONS NORMALS: normal inspection of the chest and normal palpation of entire chest wall Resp: COMMON NORMALS: No retractions, No use of accessory muscles and clear to auscultation bilaterally EFFORT & INSPECTION: Yes tachypneic AUSCULTATION: clear to auscultation bilaterally Cardio: COMMON NORMALS: regular rhythm and No murmurs present (Cardio) RATE: tachycardic RHYTHM: regular rhythm GI: INSPECTION: Yes normal to inspection Extremity: COMMON NORMALS: normal to inspection and full ROM Neuro: COMMON NORMALS: patient oriented x3, moves all extremities and no focal motor deficits Psych: COMMON NORMALS: mental status grossly normal, Normal thought process present and cooperative THOUGHT PROCESS: Normal thought process present Skin: COMMON NORMALS: no rashes or lesions noted and no wounds GENERAL SKIN EXAM: no rashes or lesions noted Course Vital Signs: Vital signs: Vital Signs Temperature 98 F 02/12/23 00:48 Pulse Rate 101 H 02/12/23 00:48 Respiratory Rate 22 H 02/12/23 00:48 Blood Pressure 142/78 02/12/23 00:48 Pulse Oximetry 98 02/12/23 00:48 Oxygen Delivery Me thod Room Air 02/11/23 23:16 MDM - Chest Pain Medical Decision Making Patient presents here with chest pain since resolved she is improved here after Ativan is likely anxiety as well troponins EKG and x-ray are normal D-dimer is negative as well patient stable for discharge she is to follow-up with PCP and return if worsening. Medical Records I reviewed the patient's medical records. Lab Data I reviewed the patient's lab results. 02/11/23 23:37 02/11/23 23:37 Radiology Impressions Chest X-Ray 02/11/23 23:09 IMPRESSION: No acute findings. Laboratory Results WBC 12.30 10^3/uL (3.29-11.43) H 02/11/23 23:37 RBC 5.13 10^6/uL (3.85-5.65) 02/11/23 23:37 Hgb 15.40 g/dL (11.27-16.99) 02/11/23 23:37 Hct 45.8 % (36-47) 02/11/23 23:37 MCV 89.3 fl (85-98) 02/11/23 23: MCH 30.0 pg (27-33) 02/11/23 23: MCHC 33.6 g/dL (30-55) 02/11/23 23:37 RDW 12.7 % (12.1-15.1) 02/11/23 23:37 Plt Count 324 10^3/cmm (157-399) 02/11/23 23:37 MPV 9.9 fL (7.4-10.4) 02/11/23 23:37 Neut % (Auto) 77.3 % 02/11/23 23:37 Lymph % (Auto) 16.7 % 02/11/23 23:37 [place] % (Auto) 5.0 % 02/11/23 23:37 Eos % (Auto) 0.0 % 02/11/23 23:37 Baso % (Auto) 0.6 % 02/11/23 23:37 Neut # (Auto) 9.52 10^3/uL (1.8-7.7) H 02/11/23 23:37 Lymph # (Auto) 2.1 10^3/uL (0.8-4.8) 02/11/23 23:37 [place] # (Auto) 0.6 10^3/uL (0.2-0.9) 02/11/23 23:37 Eos # (Auto) 0.0 10^3/uL (0.0-0.8) 02/11/23 23:37 Baso # (Auto) 0.1 10^3/uL (0.0-0.1) 02/11/23 23:37 Nucleated RBC % (auto) 0 % 02/11/23 23:37 Nucleated RBCs # 0.0 /100WBC 02/11/23 23:37 D-Dimer 0.33 ug/mLFEU (0-0.59) 02/11/23 23:37 Sodium 138 mmol/L (136-145) 02/11/23 23:37 Potassium 3.6 mmol/L (3.5-5.1) 02/11/23 23:37 Chloride 103 mmol/L (98-107) 02/11/23 23:37 Carbon Dioxide 20 mmol/L (22-29) L 02/11/23 23:37 Anion Gap 18.6 (5-19) 02/11/23 23:37 BUN 15 mg/dL (6-20) 02/11/23 23:37 Creatinine 1.1 mg/dL (0.5-0.9) H 02/11/23 23:37 GFR Calculation 59.1 mL/min (90-130) L 02/11/23 23:37 Glucose 95 mg/dL (65-115) 02/11/23 23:37 Calculated Osmolality 287 mOsm/kg (285-295) 02/11/23 23:37 Calcium 9.9 mg/dL (8.5-10.5) 02/11/23 23:37 Total Bilirubin 0.9 mg/dL (0.15-1.2) 02/11/23 23:37 AST 17 U/L (0-32) 02/11/23 23:37 ALT 32 U/L (0-33) 02/11/23 23:37 Alkaline Phosphatase 91 U/L (35-105) 02/11/23 23:37 Troponin T Baseline < 6 ng/L (0-10) 02/11/23 23:37 Total Protein 7.4 g/dL (6.6-8.7) 02/11/23 23:37 Albumin 4.7 g/dL (3.5-5.2) 02/11/23 23:37 Globulin 2.7 g/dL (1.3-4.6) 02/11/23 23:37 HCG, Qual Negative (Negative) 02/11/23 23:37 All radiology interpretation(s) finalized by discharge EKG Data EKG 1: I personally reviewed and interpreted this EKG as follows: EKG interpretation date: 02/11/23 EKG interpretation time: 23:13 Interpretation: nsr hr [address] or t wave abnormalities qrs 86 qtc 384 Discharge Plan Discharge Patient Disposition: Home Clinical Impression: Chest pain Qualifiers: Chest pain type: unspecified Qualified Code(s): R07.9 - Chest pain, unspecified Condition: Stable Prescriptions: New Naprosyn 500 mg tablet 500 mg PO BID PRN (Reason: pain) Qty: 20 0RF No Action metronidazole 500 mg tablet 500 mg PO BID Qty: 14 0RF norethindrone-e.estradiol-iron [5 (28)] 1.5 mg-30 mcg (21)/75 mg (7) tablet 1 tab PO DAILY Qty: 84 0RF azithromycin [Zithromax Z-Reg] 250 mg tablet See Rx Instructions PO .COMPLEX Qty: 6 0RF Rx Instructions: take 500 mg today (day 1), then 250 mg for 4 days (days 2-5) PO fluconazole 150 mg tablet 150 mg PO .every 3 days 0 Days Qty: 2 0RF Discharge Orders: Discharge ED (Routine); Ordered 02/12/23 Ordered By: Ubaldo Owen Referrals: Fang Neely, RADIO EQUIPMENT INSTALLER-C [Primary Care Provider] - 1-3 days Discharge Diet: Advance as tolerated Discharge Activity: Resume usual activity Patient Instructions: Chest Pain (ED) Coding Level of Care Code ED Target Aircraft Technician for Melissa Nielsen
[2023-02-11] MEDS: LORazepam 2 mg/mL INJ 1 mL 1 MG IVP (23:38)
[2023-02-11 23:48] LABS: Basophils # 0.1 10^3/uL (0.0-0.1); Basophils % 0.6 %; Hematocrit 45.8 % (36-47); Lymphocytes # 2.1 10^3/uL (0.8-4.8); Lymphocytes % 16.7 %; Mean Corpuscular HGB Conc 33.6 g/dL (30-55); Mean Corpuscular Volume 89.3 fl (85-98); Mean Platelet Volume 9.9 fL (7.4-10.4); Monocytes # 0.6 10^3/uL (0.2-0.9); Neutrophils # 9.52 10^3/uL (1.8-7.7); Neutrophils % 77.3 %; Nucleated Red Blood Cells % 0 %; Platelet Count 324 10^3/cmm (157-399); Red Blood Count 5.13 10^6/uL (3.85-5.65); Red Cell Distribution Width 12.7 % (12.1-15.1)
--- NOTE | 2023-02-11 23:51 | ECG_ITS ---
[facility] Test Date: 2023-02-11 Pat Name: Estefany Foss Department: Room: Gender: Female Publicist: : 1995 Requested By: Ubaldo Owen Order Number: [id number] Nic MD: Lulu Verdugo M.D. Measurements Intervals [place] Rate: 98 P: 63 [place]: 132 QRS: 81 QRSD: 81 T: 46 QT: 342 QTc: 438 Interpretive Statements SINUS RHYTHM WITH SINUS ARRHYTHMIA NONSPECIFIC T-WAVE ABNORMALITY Compared to ECG 02/11/2023 23:13:10 T-wave abnormality now present Electronically Signed On 02-12-2023 15:31:03 BACKING IN MACHINE TENDER by Lulu Verdugo M.D. [id number]
[2023-02-11 23:59] LABS: D Dimer 0.33 ug/mLFEU (0-0.59)
[2023-02-12 00:05] LABS: Troponin(5th) Baseline < 6 ng/L (0-10)
[2023-02-12 00:06] LABS: Alanine Aminotransferase 32 U/L (0-33); Albumin Level 4.7 g/dL (3.5-5.2); Alkaline Phosphatase 91 U/L (35-105); Anion Gap 18.6 (5-19); Aspartate Amino Transferase 17 U/L (0-32); Blood Urea Nitrogen 15 mg/dL (6-20); Calcium 9.9 mg/dL (8.5-10.5); Carbon Dioxide 20 mmol/L (22-29); Chloride 103 mmol/L (98-107); Globulin 2.7 g/dL (1.3-4.6); Glomerular Filtration Rate 59.1 mL/min (90-130); Glucose 95 mg/dL (65-115); Osmolality Calculated 287 mOsm/kg (285-295); Potassium 3.6 mmol/L (3.5-5.1); Sodium 138 mmol/L (136-145); Total Bilirubin 0.9 mg/dL (0.15-1.2); Total Protein 7.4 g/dL (6.6-8.7)
[2023-02-12 00:07] LABS: Creatinine Clr Calc Pharmacy 92.9287
[2023-02-12 00:13] LABS: HCG, Serum Qual Negative (Negative)
[2023-02-12 00:48] VITALS: BP 142/78; PULSE 101; RESP 22; TEMP 36.6; O2SAT 98
== END 2023-02-12 00:49 | disposition home or self-care (01) ==
PROVIDERS: Emergency Provider Emergency Medicine; PCP Nurse Practitioner
DX: R07.9 Chest pain, unspecified (principal)
CPT/HCPCS: 36415; 71045; 80053; 84484; 84703; 85025; 85378; 93005; 96374; 99285; J2060

== ENCOUNTER 2023-02-16 16:23 | Emergency (ER) | payer MEDICAID, SELFPAY ==
[2023-02-16 16:29] VITALS: BP 125/85; PULSE 105; RESP 18; TEMP 36.6; O2SAT 97; BMI 37.1
--- NOTE | 2023-02-16 16:38 | XRR_ITS ---
PROCEDURE INFORMATION: Exam: XR Left Shoulder Exam date and time: 02/16/2023 4:56 PM Age: 27 years old Clinical indication: Injury or trauma; Fall; Blunt trauma (contusions or hematomas); Shoulder; Left TECHNIQUE: Imaging protocol: Radiologic exam of the left shoulder. Views: 2 or more views. COMPARISON: CR (CHEST, ) 02/11/2023 11:23 PM FINDINGS: Bones/joints: Normal. Soft tissues: Normal. XR/XR shoulder LT min 2V* [id number] IMPRESSION: No acute findings.
--- NOTE | 2023-02-16 17:09 | W.ED.EXTPRO ---
HPI - Extremity Problem General: Chief complaint: Extremity Injury, Upper Stated complaint: left shoulder pain Time Seen by Provider: 02/16/23 16:38 Source: patient Mode of arrival: ambulatory Limitations: no limitations History of Present Illness: 19-year-old female states she is lifting weights she felt like her left shoulder popped out. States she is injured that shoulder before states she like she is able to relocate it but she has had some pain in the shoulder since then especially with movement. She is able to move her arm now. She rates her pain a 4 out of 10 denies any other injuries. Associated symptoms: Deny chest pain, fever(s) or rash Review of Systems Const: Denies: fever(s) or chills ENMT: Denies: throat pain or dental pain Card: Denies: chest pain Resp: Denies: dyspnea GI: Denies: abdominal pain, nausea, vomiting or diarrhea Musc: Reports: extremity pain; Denies: neck pain or back pain Skin/Breast: Denies: rash Neuro: Denies: headache(s) PFSH ED PFSH: Medical History Obesity, morbid, BMI 40.0-49.9 Family history of breast cancer in first degree relative PCOS (polycystic ovarian syndrome) Reports being diagnosed with PCOS in 2019 with irregular bleeding after the Nexplanon was removed. This was diagnosed by a doctor in [place]. Surgical History H/O tubal ligation (~05/2022) Right radial fracture At the age of 7 which was repaired with surgery. History of tonsillectomy At the age of 5-no complications History of arthroplasty of knee bilateral 2 times--both surgeries were performed in 2012 Family History Grandmother Breast cancer maternal, diagnosed at age 30. She also had cervical cancer diagnosed at the age of 50. Mother Cancer thyroid cancer diagnosed in her 30s Breast cancer diagnosed at age 27--lump was palpated while patient was breast-feeding and she was diagnosed with cancer. Underwent lumpectomy with radiation and chemotherapy Hypertension Father Diabetes Hyperlipidemia Hypertension Obese Grandfather Diabetes maternal and paternal Hyperlipidemia paternal and maternal Hypertension maternal Denies family history of Colon cancer Ovarian cancer Heart disease Anesthesia complication Stroke Female Reproductive History: Para: 2 Physical Exam Const: COMMON NORMALS: no acute distress and patient oriented x3 HENMT: COMMON NORMALS: normocephalic and atraumatic HEAD & SCALP: normocephalic and atraumatic Eye: COMMON NORMALS: conjunctivae normal CONJUNCTIVA: Yes conjunctivae normal Neck/C-Spine: COMMON NORMALS: full ROM Resp: COMMON NORMALS: normal respiratory effort GI: INSPECTION: Yes normal to inspection Extremity: NARRATIVE EXTREMITY EXAM: Full range of motion noted to left arm does have some pain with range of motion no obvious deformity Neuro: COMMON NORMALS: patient oriented x3 Psych: COMMON NORMALS: mental status grossly normal Skin: COMMON NORMALS: no rashes or lesions noted GENERAL SKIN EXAM: no rashes or lesions noted Course Vital Signs: Vital signs: Vital Signs Temperature 97.8 F 02/16/23 16:29 Pulse Rate 105 H 02/16/23 16:29 Respiratory Rate 18 02/16/23 16:29 Blood Pressure 125/85 02/16/23 16:29 Pulse Oximetry 97 02/16/23 16:29 Oxygen Delivery Me thod Room Air 02/16/23 16:29 MDM - Extremity (Nontraumatic) Medical Decision Making Patient presents here with left shoulder injury x-ray here showed no fracture or dislocation here we will place her on Naprosyn she is to follow-up with orthopedics return if worsening. Medical Records I reviewed the patient's medical records. Lab Data I reviewed the patient's lab results. Radiology Impressions Shoulder X-Ray 02/16/23 16:38 IMPRESSION: No acute findings. All radiology interpretation(s) finalized by discharge Discharge Plan Discharge Patient Disposition: Home Clinical Impression: Left shoulder strain Qualifiers: Encounter type: initial encounter Qualified Code(s): S46.912A - Strain of unspecified muscle, fascia and tendon at shoulder and upper arm level, left arm, initial encounter Condition: Stable Prescriptions: New Naprosyn 500 mg tablet 500 mg PO BID PRN (Reason: pain) Qty: 20 0RF No Action metronidazole 500 mg tablet 500 mg PO BID Qty: 14 0RF norethindrone-e.estradiol-iron [Junel FE 1.5/30 (28)] 1.5 mg-30 mcg (21)/75 mg (7) tablet 1 tab PO DAILY Qty: 84 0RF azithromycin [Zithromax Z-Reg] 250 mg tablet See Rx Instructions PO .COMPLEX Qty: 6 0RF Rx Instructions: take 500 mg today (day 1), then 250 mg for 4 days (days 2-5) PO fluconazole 150 mg tablet 150 mg PO .every 3 days 0 Days Qty: 2 0RF Naprosyn 500 mg tablet 500 mg PO BID PRN (Reason: pain) Qty: 20 0RF Discharge Orders: Discharge ED (Routine); Ordered 02/16/23 Ordered By: Ubaldo Owen Referrals: Fang Neely, JEWELRY BENCH WORKER-C [Primary Care Provider] - 1-3 days Discharge Diet: Advance as tolerated Discharge Activity: Resume usual activity Patient Instructions: Shoulder Sprain (ED) Coding Level of Care Code ED Special Machine Operator for Melissa Nieslen
[2023-02-16] MEDS: HYDROcodone-acetaminophen 5-325 mg Tablet 1 TAB PO (17:28)
--- NOTE | 2023-02-17 07:38 | DCPLANNER ---
Message sent to ortho for a follow up on a left shoulder sprain.
== END 2023-02-16 17:30 | disposition home or self-care (01) ==
PROVIDERS: Emergency Provider Emergency Medicine; PCP Nurse Practitioner
DX: S46.912A Strain of unspecified muscle, fascia and tendon at shoulder and upper arm level, left arm, initial encounter (principal); X50.0XXA Overexertion from strenuous movement or load, initial encounter; Y93.B9 Activity, other involving muscle strengthening exercises
CPT/HCPCS: 73030; 99283

== ENCOUNTER → 2023-02-20 08:21 | Outpatient (BNVA) | payer MEDICAID, SELFPAY | PROVIDERS: PCP Nurse Practitioner; Visit Provider Nurse Practitioner | DX: S46.912A Strain of unspecified muscle, fascia and tendon at shoulder and upper arm level, left arm, initial encounter (principal); M75.42 Impingement syndrome of left shoulder; M75.82 Other shoulder lesions, left shoulder; X58.XXXA Exposure to other specified factors, initial encounter | CPT/HCPCS: 73030 ==

== ENCOUNTER 2023-07-06 11:39 | Outpatient (CLI) | payer MEDICAID, SELFPAY ==
--- NOTE | 2023-07-06 11:47 | MR_ITS ---
WS: [id number] MRI LEFT SHOULDER NONCONTRAST TECHNIQUE: Sagittal T2, coronal T1, T2 and proton density imaging. Axial gradient PDE imaging. CLINICAL INFORMATION: left shoulder PAIN COMPARISON: MRI 2020 FINDINGS: Normal AC joint. Minimal narrowing of the subacromial space. Trace subacromial fluid. Small amount of tendinopathy in the distal supraspinatus and infraspinatus insertions similar to previous. Supraspin atus and infraspinatus are otherwise intact. Normal teres minor. Subscapularis tendon appears intact. Biceps tendon intact within the bicipital groove. Normal bone marrow signal in the glenoid. Glenoid l abrum appears grossly normal. Intra-articular biceps tendon appears intact. Normal bone marrow signal in the humeral head and neck. Suggestion of a tiny Hill-Sachs lesion althou gh no edema. Recommend correlation with history of dislocation. IMPRESSION: 1. Minimal edema at the AC joint with trace subacromial fluid. 2. Tendinopathy distal supraspinatus and infraspinatus insertions similar compared to previous. 3. Rotator cuff is otherwise intact. 4. Normal biceps tendon in the bicipital groove. 5. Suggestion of tiny Hill-Sachs lesion at the level of the coracoid appears new or more prominent c ompared to previous. No edema. Recommend correlation with history of dislocation. 6. No other acute findings.
== END 2023-07-06 11:40 | disposition home or self-care (01) ==
LOC: RAD 11:41
PROVIDERS: Visit Provider Nurse Practitioner
DX: M75.82 Other shoulder lesions, left shoulder (principal); M25.512 Pain in left shoulder
CPT/HCPCS: 73221

== ENCOUNTER 2023-07-20 13:16 | Emergency (ER) | payer MEDICAID, SELFPAY ==
[2023-07-20 13:55] VITALS: BP 144/80; PULSE 88; RESP 18; TEMP 36.8; O2SAT 97; BMI 37.1
--- NOTE | 2023-07-20 14:08 | ED_ITS ---
HPI - Extremity Injury (Upper) General: Chief Complaint: Extremity Injury, Lower Stated Complaint: right arm pain Time Seen by Provider: 07/20/23 13:42 Source: patient Mode of arrival: ambulatory Limitations: no limitations History of Present Illness: Patient is a 27-year-old female presents to ED today with complaint of right forearm and wrist pain after a cow head butted her. Patient states she has broken that right wrist before which concerned her. She feels like the radial aspect of the wrist is slightly swollen. She maintains fairly normal function of the elbow and wrist joints. Occurred two days ago. complaint: injury to: right, forearm and wrist Onset (ago): day(s) Other Extremity Injury: Right: wrist and forearm Other injuries: none Handedness: right Place: home Severity: mild Relieving factors: immobilization Exacerbating factors: movement of extremity Context: direct blow Associated symptoms: Reports no associated symptoms; Denies neck pain or weakness in extremities Review of Systems Musc: Reports: extremity pain (R forearm) and joint pain (R wrist); Denies: neck pain, back pain, extremity swelling, joint redness, joint warmth, joint stiffness, limited range of motion or muscle weakness Neuro: Denies: numbness in extremities, weakness in extremities or sensory changes PFS ED PFSH: Medical History Palpitations Chronic left shoulder pain Trapezius muscle spasm Tendonitis of left rotator cuff Impingement syndrome, shoulder, left Obesity, morbid, BMI 40.0-49.9 Family history of breast cancer in first degree relative PCOS (polycystic ovarian syndrome) Reports being diagnosed with PCOS in 2019 with irregular bleeding after the Nexplanon was removed. This was diagnosed by a doctor in [place]. Surgical History H/O tubal ligation (~05/2022) Right radial fracture At the age of 7 which was repaired with surgery. History of tonsillectomy At the age of 5-no complications History of arthroplasty of knee bilateral 2 times--both surgeries were performed in 2012 Family History Grandmother Breast cancer maternal, diagnosed at age 30. She also had cervical cancer diagnosed at the age of 50. Mother Cancer thyroid cancer diagnosed in her 30s Breast cancer diagnosed at age 27--lump was palpated while patient was breast-feeding and she was diagnosed with cancer. Underwent lumpectomy with radiation and chemotherapy Hypertension Father Diabetes Hyperlipidemia Hypertension Obese Grandfather Diabetes maternal and paternal Hyperlipidemia paternal and maternal Hypertension maternal Denies family history of Colon cancer Ovarian cancer Heart disease Anesthesia complication Stroke Female Reproductive History: Para: 2 Physical Exam Const: COMMON NORMALS: no acute distress, patient oriented x3, no limitations, healthy appearing, alert and well nourished Extremity: COMMON NORMALS: normal to inspection, full ROM, capillary refill normal, no joint enlargement and no clubbing, cyanosis or edema GENERAL: Yes normal exam except as noted RIGHT UPPER EXTREMITY: Yes lower arm (mild ten derness-no edema or deformity noted) Right lower arm: Yes neurovascular exam (normal) and Yes wrist (mild contusion R radial wrist; no deformity noted) Right wrist: Yes ROM (slightly hesitant but full ROM) and Yes neurovascular exam (normal) Neuro: COMMON NORMALS: patient oriented x3, moves all extremities, no focal motor deficits and no sensory deficits noted SENSORIUM/ORIENTATION: Yes alert Skin: TRAUMA: no lacerations or abrasions Course Vital Signs: Vital signs: Vital Signs Temperature 98.2 F 07/20/23 13:55 Pulse Rate 88 07/20/23 13:55 Respiratory Rate 18 07/20/23 13:55 Blood Pressure 144/80 07/20/23 13:55 Pulse Oximetry 97 07/20/23 13:55 Oxygen Delivery Me thod Room Air 07/20/23 13:55 MDM - Extremity Injury (Upper) Medical Decision Making XRs of forearm and wrist are negative. She will be allowed discharge with conservative treatment recommended at home. Recommend follow-up with primary care in 1 to 2 weeks if symptoms do not seem to be improving. Medical Records I reviewed the patient's medical records. Lab Data Radiology Impressions Forearm X-Ray 07/20/23 14:15 IMPRESSION: 1. No evidence of fracture or subluxation. Wrist X-Ray 07/20/23 14:15 IMPRESSION: 1. No evidence of fracture or subluxation. All radiology interpretation(s) finalized by discharge Discharge Plan Discharge Patient Disposition: Home Clinical Impression: Contusion of right wrist Qualifiers: Encounter type: initial encounter Qualified Code(s): S60.211A - Contusion of right wrist, initial encounter Condition: Stable Discharge Orders: Discharge ED (Routine); Ordered 07/20/23 Ordered By: Mona Moss Patient Instructions: Contusion, RICE Therapy Coding Level of Care Code ED Commutator Undercutter for Melissa Nielsen
--- NOTE | 2023-07-20 14:15 | XRR_ITS ---
PROCEDURE INFORMATION: Exam: XR Right Forearm Exam date and time: 07/20/2023 2:24 PM Age: 27 years old Clinical indication: Injury or trauma; Other: Smashed forearm; Blunt trauma (contusions or hematomas); Arm, lower; Right; Injury date: Thursday TECHNIQUE: Imaging protocol: Radiologic exam of the right forearm. Views: 2 views. COMPARISON: No relevant prior studies available. FINDINGS: Bones/joints: Radius and ulna are grossly intact. Elbow is grossly intact without evidence of effusion. Soft tissues: No gross soft tissue abnormality. No evidence of radiopaque foreign body. XR/XR forearm RT 2V [id number] IMPRESSION: 1. No evidence of fracture or subluxation.
--- NOTE | 2023-07-20 14:15 | XRR_ITS ---
PROCEDURE INFORMATION: Exam: XR Right Wrist Exam date and time: 07/20/2023 2:25 PM Age: 27 years old Clinical indication: Injury or trauma; Other: Smashed forearm; Blunt trauma (contusions or hematomas); Wrist; Right TECHNIQUE: Imaging protocol: Radiologic exam of the right wrist. Views: 3 or more views. COMPARISON: CR XR forearm RT 2V [id number] 07/20/2023 2:24 PM FINDINGS: Bones/joints: No evidence of fracture or subluxation. Radiocarpal articulation and carpal rows are grossly intact. Soft tissues: Grossly unremarkable. XR/XR wrist RT min 3V* [id number] IMPRESSION: 1. No evidence of fracture or subluxation.
== END 2023-07-20 15:19 | disposition home or self-care (01) ==
PROVIDERS: Emergency Provider Physician Assistant
DX: S60.211A Contusion of right wrist, initial encounter (principal); W55.22XA Struck by cow, initial encounter
CPT/HCPCS: 73090; 73110; 99283

== ENCOUNTER 2023-08-25 09:00 | Outpatient (CLI) | payer MEDICAID, SELFPAY | END 2023-08-25 09:01 | disposition home or self-care (01) | LOC: RAD 11-18 10:33 | PROVIDERS: PCP Nurse Practitioner; Visit Provider Psychiatry & Neurology Neurology | DX: R55 Syncope and collapse (principal) | CPT/HCPCS: 36415; 82306; 82565; 82607; 82746; 83090; 83735; 83921; 84439; 84443; 84481 ==

== ENCOUNTER → 2023-08-26 10:22 | Outpatient (BNVA) | payer MEDICAID, SELFPAY | PROVIDERS: Visit Provider Nurse Practitioner Family | DX: Y84.4 Aspiration of fluid as the cause of abnormal reaction of the patient, or of later complication, without mention of misadventure at the time of the procedure (principal); R05.9 Cough, unspecified; R06.02 Shortness of breath | CPT/HCPCS: 71046 ==

== ENCOUNTER 2023-09-22 07:21 | Outpatient (CLI) | payer MEDICAID, SELFPAY ==
--- NOTE | 2023-09-22 07:45 | MR_ITS ---
WS: [id number] MRI HEAD WITHOUT CONTRAST TECHNIQUE: Sagittal T1, T2 axial, T2 axial FLAIR, axial and coronal T1 images, axial susceptibility w eighted imaging, axial diffusion weighted images, and coronal T2 images were obtained. CLINICAL INFORMATION: R55 - Syncope and collapse COMPARISON: None. FINDINGS: No evidence of restricted diffusion to suggest acute ischemia. Ventricular system and basal cisterns are patent. No hemosiderin on the susceptibly weighted images. Normal posterior fossa. Normal vascula r flow voids at the skull base. No extra-axial fluid collections. No evidence of mass or mass effect. Mild mucosal thickening in the paranasal sinuses. Mastoid air cells are well aerated. Normal posteri or nasopharynx. Normal optic chiasm and pituitary infundibulum. Temporal lobes and hippocampal formations are normal in appearance. MR/MR head wo con* [id number] IMPRESSION: 1. No suspicious intracranial signal abnormalities. 2. No hemosiderin on susceptibility-weighted images. 3. No restricted diffusion to suggest acute ischemia.
--- NOTE | 2023-09-22 08:30 | MR_ITS ---
WS: [id number] MRA HEAD TECHNIQUE: Axial 3-D TOF images obtained with axial images and axial, sagittal, and coronal 2-D refor matted images. CLINICAL INFORMATION: R55 - Syncope and collapse COMPARISON: None. FINDINGS: Distal vertebral arteries are patent. Basilar artery is patent. Normal vascularity to the PLATFORM MATERIAL HANDLER MANAGER territo ry bilaterally. Both ICAs are patent at the skull base. Normal vascularity to the AXEL and MCA territories bilaterally . No evidence of proximal flow-limiting stenosis. MR/MR angio head wo con [id number] IMPRESSION: Normal intracranial MRA.
== END 2023-09-22 07:22 | disposition home or self-care (01) ==
PROVIDERS: PCP Nurse Practitioner; Visit Provider Psychiatry & Neurology Neurology
DX: R55 Syncope and collapse (principal)
CPT/HCPCS: 70544; 70551

== ENCOUNTER 2023-10-20 15:22 | Emergency (ER) | payer MEDICAID, SELFPAY ==
[2023-10-20 15:28] VITALS: BP 139/89; PULSE 107; RESP 18; TEMP 525; TEMP 977; O2SAT 99
--- NOTE | 2023-10-20 15:30 | ECG_ITS ---
[facility] Test Date: 2023-10-20 Pat Name: Estefany Foss Department: Room: Gender: Female Roll Up Helper: : 1995 Requested By: Ubaldo Owen Order Number: [id number] Nic MD: Colby Schwartz M.D. Measurements Intervals [place] Rate: 108 P: 66 WV: 138 QRS: 79 QRSD: 82 T: 50 QT: 323 QTc: 434 Interpretive Statements SINUS TACHYCARDIA NONSPECIFIC T-WAVE ABNORMALITY Compared to ECG 02/11/2023 23:51:50 Sinus rhythm no longer present Sinus arrhythmia no longer present T-wave abnormality still present Electronically Signed On 10-20-2023 18:10:34 CDT by Colby Schwartz M.D. [id number]
[2023-10-20 16:24] LABS: Hematocrit 38.2 % (36-47); Mean Corpuscular HGB Conc 32.7 g/dL (30-55); Mean Corpuscular Hemoglobin 29.8 pg (27-33); Mean Corpuscular Volume 91.2 fl (85-98); Mean Platelet Volume 9.9 fL (7.4-10.4); Platelet Count 174 10^3/cmm (157-399); Red Blood Count 4.19 10^6/uL (3.85-5.65); Red Cell Distribution Width 12.7 % (12.1-15.1); White Blood Count 6.43 10^3/uL (3.29-11.43)
[2023-10-20 16:33] LABS: HCG, Serum Qual Negative (Negative)
[2023-10-20 16:39] LABS: Alanine Aminotransferase 29 U/L (0-33); Albumin Level 4.1 g/dL (3.5-5.2); Alkaline Phosphatase 95 U/L (35-105); Anion Gap 14.7 (5-19); Aspartate Amino Transferase 21 U/L (0-32); Blood Urea Nitrogen 9 mg/dL (6-20); Calcium 8.4 mg/dL (8.5-10.5); Carbon Dioxide 20 mmol/L (22-29); Chloride 107 mmol/L (98-107); Globulin 2.9 g/dL (1.3-4.6); Glomerular Filtration Rate 84.8 mL/min (90-130); Glucose 103 mg/dL (65-115); Lipase 26 U/L (13-60); Osmolality Calculated 285 mOsm/kg (285-295); Potassium 3.7 mmol/L (3.5-5.1); Sodium 138 mmol/L (136-145); Total Bilirubin 0.5 mg/dL (0.15-1.2)
[2023-10-20 17:12] LABS: Absolute Segmented Neutrophil 2.4 10/cmm (1.6-7.1); Lymphocytes 45 %; Monocytes Absolute 0.1 10^3/cmm (0.1-0.6); Segmented Neutrophils 37 %; Slide Review Slide Review Perform; Total Cells Counted 100 (0-100)
[2023-10-20 17:13] LABS: Absolute Eosinophils 0.1 10^3/cmm (0.0-0.7); Absolute Neutrophil 2.4 10^3/cmm (1.4-6.5); Eosinophils 1 %; Lymphocytes Absolute 3.9 10^3/cmm (1.2-3.4); Platelet Estimate Normal (Normal)
--- NOTE | 2023-10-20 17:36 | CTR_ITS ---
PROCEDURE INFORMATION: Exam: CT Abdomen And Pelvis With Contrast Exam date and time: 10/20/2023 6:10 PM Age: 28 years old Clinical indication: Abdominal pain; Additional info: Rlq pain TECHNIQUE: Imaging protocol: Computed tomography of the abdomen and pelvis with contrast. Radiation optimization: All CT scans at this facility use at least one of these dose optimization techniques: automated exposure control; mA and/or kV adjustment per patient size (includes targeted exams where dose is matched to clinical indication); or iterative reconstruction. Contrast material: OMNI 350; Contrast volume: 100 ml; Contrast route: INTRAVENOUS (IV); COMPARISON: CT abdomen pelvis w con* [id number] 05/29/2022 11:58 PM RADIATION DOSE METRICS: Total DLP (mGy-cm): 938 FINDINGS: Lungs: The lung bases are clear. Liver: The liver is normal. No hepatic masses are identified. Gallbladder and biliary ducts: The gallbladder is contracted. There is no ductal dilatation. Pancreas: The pancreas is normal. Spleen: Moderate to marked splenomegaly, significantly increased in size compared to prior study. Adrenal glands: The adrenal glands are normal. Kidneys and ureters: There is normal enhancement of the kidneys. No renal calcifications are identified. There is no hydronephrosis. Stomach and bowel: There is no large or small bowel obstruction. There is no evidence of bowel wall thickening. Appendix: A normal appendix is identified. Intraperitoneal space: Small pelvic free fluid. Vasculature: The aorta is normal in course and caliber. No significant atherosclerotic calcifications are present. Lymph nodes: Mildly enlarged left inguinal lymph node and left external iliac lymph node, new compared to prior study. Left inguinal lymph node measures 18 x 12 mm. Left external iliac lymph node measures 21 x 11 mm. No other enlarged pelvic sidewall lymph nodes. No enlarged retroperitoneal or mesenteric lymph nodes. Urinary bladder: The bladder is unremarkable. Reproductive: The uterus is present. Note made of left corpus luteal cyst. Bones/joints: No acute osseous abnormalities are seen. Soft tissues: The soft tissues are within normal limits. CT/CT abdomen pelvis w con* [id number] IMPRESSION: 1. Moderate to marked splenomegaly, significantly increased in size compared to prior study. 2. Mildly enlarged left inguinal lymph node and left external iliac lymph node, new compared to prior study. 3. Small pelvic free fluid. Likely physiologic.
--- NOTE | 2023-10-20 17:36 | ED_ITS ---
HPI - Abdominal Pain 2 General: Chief Complaint: Abdominal Pain Stated Complaint: low abd pain Time Seen by Provider: 10/20/23 17:33 Source: patient Mode of arrival: ambulatory Limitations: no limitations History of Present Illness: 28-year-old female states she been havin g right lower quadrant pain for last 2 weeks states it is worsened over the last 3 days. States pain is an 8 out of 10 is much worse with palpation she had a history of ovarian cyst she denies any vaginal bleeding denies any vaginal discharge she had some nausea. Denies any fevers Associated Symptoms: Reports nausea; Denies chills, diarrhea, dysuria, fever(s) and vomiting Review of Systems 2 Const: Denies: fever(s), chills, body aches or change in appetite ENMT: Denies: throat pain or dental pain Card: Denies: chest pain Resp: Denies: dyspnea GI: Reports: abdominal pain and nausea; Denies: vomiting or diarrhea : Denies: dysuria Musc: Denies: neck pain or back pain Skin/Breast: Denies: rash Neuro: Denies: headache(s) PFSH ED 2 PFSH: Medical History Palpitations Chronic left shoulder pain Trapezius muscle spasm Tendonitis of left rotator cuff Impingement syndrome, shoulder, left Obesity, morbid, BMI 40.0-49.9 Family history of breast cancer in first degree relative PCOS (polycystic ovarian syndrome) Reports being diagnosed with PCOS in 2019 with irregular bleeding after the Nexplanon was removed. This was diagnosed by a doctor in [place]. Surgical History H/O tubal ligation (~05/2022) Right radial fracture At the age of 7 which was repaired with surgery. History of tonsillectomy At the age of 5-no complications History of arthroplasty of knee bilateral 2 times--both surgeries were performed in 2012 Family History Grandmother Breast cancer maternal, diagnosed at age 30. She also had cervical cancer diagnosed at the age of 50. Mother Cancer thyroid cancer diagnosed in her 30s Breast cancer diagnosed at age 27--lump was palpated while patient was breast-feeding and she was diagnosed with cancer. Underwent lumpectomy with radiation and chemotherapy Hypertension Father Diabetes Hyperlipidemia Hypertension Obese Grandfather Diabetes maternal and paternal Hyperlipidemia paternal and maternal Hypertension maternal Denies family history of Colon cancer Ovarian cancer Heart disease Anesthesia complication Stroke Social History Smoking and tobacco/nicotine status: never used tobacco/nicotine Female Reproductive History: Para: 2 Physical Exam 2 Const: COMMON NORMALS: no acute distress, patient oriented x3 and healthy appearing HENMT: COMMON NORMALS: normocephalic and atraumatic HEAD & SCALP: n ormocephalic and atraumatic Eye: COMMON NORMALS: conjunctivae normal CONJUNCTIVA: Yes conjunctivae normal Neck/C-Spine: COMMON NORMALS: full ROM and supple Chest: COMMONS NORMALS: normal inspection of the chest Resp: COMMON NORMALS: normal respiratory effort Cardio: COMMON NORMALS: regular rate, regular rhythm and No murmurs present (Cardio) RATE: regular rate RHYTHM: regular rhythm GI: COMMON NORMALS: Normal to inspection, nondistended, normoactive bowel sounds present, Soft to palpation and no masses PALPATION: Yes Soft to palpation and Yes Tenderness to palpation present (GI) Details: RLQ Extremity: COMMON NORMALS: normal to inspection and full ROM Neuro: COMMON NORMALS: patient oriented x3, moves all extremities and no focal motor deficits Psych: COMMON NORMALS: mental status grossly normal, Normal thought process present and cooperative THOUGHT PROCESS: Normal thought process present Skin: COMMON NORMALS: no rashes or lesions noted and no wounds GENERAL SKIN EXAM: no rashes or lesions noted Course 2 Vital Signs: Vital signs: Vital Signs Temperature 977 F H 10/20/23 15:28 Pulse Rate 80 10/20/23 17:57 Respiratory Rate 18 10/20/23 17:57 Blood Pressure 133/81 10/20/23 18:41 Pulse Oximetry 99 10/20/23 18:41 Oxygen Delivery Me thod Room Air 10/20/23 15:28 MDM - Abdominal Pain Medical Decision Making Patient presents with right lower quadrant pain CT showed no signs of appendicitis she did have some splenomegaly informed of this blood works normal otherwise she is stable for discharge no signs of ovarian torsion will prescribe her pain meds follow-up with PCP return if worsening. Medical Records I reviewed the patient's medical records. Lab Data I reviewed the patient's lab results. 10/20/23 16:14 10/20/23 16:14 Labs/Radiology: Radiology Impressions Abdomen/Pelvis CT 10/20/23 17:36 IMPRESSION: 1. Moderate to marked splenomegaly, significantly increased in size compared to prior study. 2. Mildly enlarged left inguinal lymph node and left external iliac lymph node, new compared to prior study. 3. Small pelvic free fluid. Likely physiologic. Laboratory Results WBC 6.43 10^3/uL (3.29-11.43) 10/20/23 16:14 RBC 4.19 10^6/uL (3.85-5.65) 10/20/23 16:14 Hgb 12.50 g/dL (11.27-16.99) 10/20/23 16:14 Hct 38.2 % (36-47) 10/20/23 16:14 MCV 91.2 fl (85-98) 10/20/23 16:14 MCH 29.8 pg (27-33) 10/20/23 16:14 MCHC 32.7 g/dL (30-55) 10/20/23 16:14 RDW 12.7 % (12.1-15.1) 10/20/23 16:14 Plt Count 174 10^3/cmm (157-399) 10/20/23 16:14 MPV 9.9 fL (7.4-10.4) 10/20/23 16:14 Lymph % (Auto) Not Reportable 10/20/23 16:14 [place] % (Auto) Not Reportable 10/20/23 16:14 Lymph # (Auto) Not Reportable 10/20/23 16:14 [place] # (Auto) Not Reportable 10/20/23 16:14 Total Counted 100 (0-100) 10/20/23 16:14 Atypical Lymphs % 16.0 % (0-5) H 10/20/23 16:14 Absolute Neutrophils 2.4 10^3/cmm (1.4-6.5) 10/20/23 16:14 Segmented Neutrophils 37 % 10/20/23 16:14 Abs Segm Neuts (Man) 2.4 10/cmm (1.6-7.1) 10/20/23 16:14 Band Neutrophils 0.0 % 10/20/23 16:14 Abs Band Neuts (Man) 0.0 10^3/cmm (0.0-1.2) 10/20/23 16:14 Absolute Lymphocytes 3.9 10^3/cmm (1.2-3.4) H 10/20/23 16:14 Lymphocytes (Manual) 45 % 10/20/23 16:14 Monocytes (Manual) 1.0 % 10/20/23 16:14 Absolute Monocytes 0.1 10^3/cmm (0.1-0.6) 10/20/23 16:14 Eosinophils (Manual) 1 % 10/20/23 16:14 Absolute Eosinophils 0.1 10^3/cmm (0.0-0.7) 10/20/23 16:14 Basophils (Manual) 0.0 % 10/20/23 16:14 Absolute Basophils 0.0 10^3/cmm (0.0-0.2) 10/20/23 16:14 Platelet Estimate Normal (Normal) 10/20/23 16:14 Sodium 138 mmol/L (136-145) 10/20/23 16:14 Potassium 3.7 mmol/L (3.5-5.1) 10/20/23 16:14 Chloride 107 mmol/L (98-107) 10/20/23 16:14 Carbon Dioxide 20 mmol/L (22-29) L 10/20/23 16:14 Anion Gap 14.7 (5-19) 10/20/23 16:14 BUN 9 mg/dL (6-20) 10/20/23 16:14 Creatinine 0.8 mg/dL (0.5-0.9) 10/20/23 16:14 GFR Calculation 84.8 mL/min (90-130) L 10/20/23 16:14 Glucose 103 mg/dL (65-115) 10/20/23 16:14 Calculated Osmolality 285 mOsm/kg (285-295) 10/20/23 16:14 Calcium 8.4 mg/dL (8.5-10.5) L 10/20/23 16:14 Total Bilirubin 0.5 mg/dL (0.15-1.2) 10/20/23 16:14 AST 21 U/L (0-32) 10/20/23 16:14 ALT 29 U/L (0-33) 10/20/23 16:14 Alkaline Phosphatase 95 U/L (35-105) 10/20/23 16:14 Total Protein 7.0 g/dL (6.6-8.7) 10/20/23 16:14 Albumin 4.1 g/dL (3.5-5.2) 10/20/23 16:14 Globulin 2.9 g/dL (1.3-4.6) 10/20/23 16:14 Lipase 26 U/L (13-60) 10/20/23 16:14 HCG, Qual Negative (Negative) 10/20/23 16:14 Amorphous Sediment Not Reportable 10/20/23 18:34 All radiology interpretation(s) finalized by discharge Discharge Plan Discharge Patient Disposition: Home Clinical Impression: Abdominal pain Condition: Stable Prescriptions: New hydrocodone-acetaminophen 5-325 mg tablet 1 tab PO Q6H PRN (Reason: pain) Qty: 14 0RF No Action albuterol sulfate 90 mcg/actuation HFA aerosol inhaler 2 puff inhalation QID PRN (Reason: shortness of breath or wheezing) Qty: 6.7 0RF cholecalciferol (vitamin D3) 1,250 mcg (50,000 unit) capsule 50,000 unit PO ONCE Qty: 14 5RF Rx Instructions: take 1 pill a week Discharge Orders: Discharge ED (Routine); Ordered 10/20/23 Ordered By: Ubaldo Owen Referrals: Fang Neely FNP-C [Primary Care Provider] - 4-7 days Discharge Diet: Advance as tolerated Discharge Activity: Resume usual activity Patient Instructions: Abdominal Pain (ED), Opioid Safety Coding Level of Care Code ED Antique Dealer for Melissa Nielsen
[2023-10-20] MEDS: ondansetron 2 mg/ML SDV 2 mL 4 MG IVP (17:54)
[2023-10-20 17:56] VITALS: RESP 18
[2023-10-20] MEDS: morphine 4 mg/mL SDV 1 mL IVP (17:56)
[2023-10-20 17:57] VITALS: BP 123/85; PULSE 80; RESP 18; O2SAT 100
[2023-10-20] MEDS: iohexol 350 mg/mL 500 mL Btl (per mL) IV (18:12)
[2023-10-20 18:41] VITALS: BP 133/81; O2SAT 99
[2023-10-20 18:47] LABS: Charge for UA Resulting for Rev
[2023-10-20 18:52] LABS: Bilirubin Urine Negative (Negative); Blood Urine Negative (Negative); Glucose Urine UA Negative (Normal); Ketones Urine Negative (Negative); Leukocyte Esterase Urine Negative (Negative); Nitrate Urine Negative (Negative); Protein Urine Trace (Negative); Urine Appearance Clear (CLEAR); Urine Color Yellow (Yellow)
[2023-10-20 18:58] LABS: Bacteria Urine Trace /hpf; Hyaline Casts Urine 1.65 /lpf; RBC Urine 0-2 /hpf (0-2)
[2023-10-20 19:19] VITALS: BP 126/87; PULSE 78; RESP 18; O2SAT 97
[2023-10-20 19:58] LABS: Specific Gravity, Urine 1.066 (1.005-1.030)
[2023-10-20 20:00] LABS: Add Urine Culture? No
== END 2023-10-20 19:20 | disposition home or self-care (01) ==
PROVIDERS: Physician Assistant; Emergency Provider Emergency Medicine; PCP Nurse Practitioner
DX: R10.31 Right lower quadrant pain (principal)
CPT/HCPCS: 36415; 74177; 80053; 81000; 81003; 81015; 83690; 84703; 85007; 85025; 93005; 96374; 96375; 99285; J2270; J2405; Q9967

== ENCOUNTER 2023-10-22 10:45 | Emergency (ER) | payer MEDICAID, SELFPAY ==
[2023-10-22 11:15] VITALS: BP 125/87; PULSE 88; RESP 22; TEMP 36.8; O2SAT 99; BMI 35.5
--- NOTE | 2023-10-22 11:20 | US_ITS ---
WS: [id number] US pelv w/transvag [id number] HISTORY: rlq pain, worsening pain. rule out torsion etc COMPARISON: None available. Uterus: 8.5 cm x 5.0 cm x 3.7 cm. Normal size anteverted uterus. No fibroid or mass. Increased peripheral uterine veins. This is typically seen after . Endometrium: 0.4 cm. Normal. IUD seen on the prior study of 04/03/2022 is not identified today. Right ovary: 3.6 cm x 2.4 cm x 1.9 cm. Normal size ovary. There are multiple small peripheral follicl es of similar size. There is also small amount of free fluid. Normal vascularity. Left ovary: 3.2 cm x 2.4 cm x 2.8 cm. Normal size ovary with small peripheral follicles of similar si ze. Normal vascularity. There is a small amount of free fluid in the pelvis, greatest to the RIGHT. There is also extensive p rominence of the uterine venous plexus. US/US pelv w/transvag [id number] IMPRESSION: 1. Normal endometrium. 2. Small amount of free fluid in the cul-de-sac and greatest to the RIGHT may be from a ruptured ovarian cyst. 3. Marked pelvic venous congestion. 4. Multiple small peripheral follicles in each ovary. Although the ovaries are not enlarged the distribution and number of these follicles suggest polycystic ovarian syndrome.
--- NOTE | 2023-10-22 11:22 | ED_ITS ---
HPI - Abdominal Pain 2 General: Chief Complaint: Abdominal Pain Stated Complaint: abd pain Time Seen by Provider: 10/22/23 11:16 History of Present Illness: 28-year-old female with a history of nunu ycystic ovarian syndrome who presents emergency room with continued right lower quadrant abdominal pain. She was here yesterday and had a CT scan. This showed some fluid in the pelvis with no acute process. She did not chicken picker her pain medication and her pain was worse today so she came back to the emergency room. She has had some nausea but no vomiting. Continued pain in her right lower quadrant. No fevers. No chest pain. No altered mental status. Review of Systems 2 Narrative: Constitutional symptoms: Negative except as documented in HPI. Skin symptoms: Negative except as documented in HPI. Eye symptoms: Negative except as documented in HPI. ENMT symptoms: Negative except as documented in HPI. Respiratory symptoms: Negative except as documented in HPI. Cardiovascular symptoms: Negative except as documented in HPI. Gastrointestinal symptoms: Negative except as documented in HPI. Genitourinary symptoms: Negative except as documented in HPI. Musculoskeletal symptoms: Negative except as documented in HPI. Neurologic symptoms: Negative except as documented in HPI. Psychiatric symptoms: Negative except as documented in HPI. Endocrine symptoms: Negative except as documented in HPI. PFSH ED 2 PFSH: Medical History Palpitations Chronic left shoulder pain Trapezius muscle spasm Tendonitis of left rotator cuff Impingement syndrome, shoulder, left Obesity, morbid, BMI 40.0-49.9 Family history of breast cancer in first degree relative PCOS (polycystic ovarian syndrome) Reports being diagnosed with PCOS in 2019 with irregular bleeding after the Nexplanon was removed. This was diagnosed by a doctor in [place]. Surgical History H/O tubal ligation (~05/2022) Right radial fracture At the age of 7 which was repaired with surgery. History of tonsillectomy At the age of 5-no complications History of arthroplasty of knee bilateral 2 times--both surgeries were performed in 2012 Family History Grandmother Breast cancer maternal, diagnosed at age 30. She also had cervical cancer diagnosed at the age of 50. Mother Cancer thyroid cancer diagnosed in her 30s Breast cancer diagnosed at age 27--lump was palpated while patient was breast-feeding and she was diagnosed with cancer. Underwent lumpectomy with radiation and chemotherapy Hypertension Father Diabetes Hyperlipidemia Hypertension Obese Grandfather Diabetes maternal and paternal Hyperlipidemia paternal and maternal Hypertension maternal Denies family history of Colon cancer Ovarian cancer Heart disease Anesthesia complication Stroke Social History Smoking and tobacco/nicotine status: never used tobacco/nicotine Female Reproductive History: Para: 2 Physical Exam 2 Narrative: EXAM NARRATIVE: General: Alert, no acute distress. Skin: Warm, dry. Head: Normocephalic, atraumatic. Neck: Supple, trachea midline. Eye: Extraocular movements are intact. Ears, nose, mouth and throat: mucosa moist. Cardiovascular: Regular, Normal peripheral perfusion. Respiratory: Lungs are clear to auscultation, respirations are non-labored, breath sounds are equal, Symmetrical chest wall expansion. Gastrointestinal: Soft, moderate right lower quadrant tenderness, Non distended Musculoskeletal: Normal ROM, no deformity. Neurological: Alert and oriented, No focal neurological deficit observed. Psychiatric: Cooperative, appropriate mood & affect. Course 2 Vital Signs: Vital signs: Vital Signs Temperature 98.2 F 10/22/23 11:15 Pulse Rate 78 10/22/23 13:00 Respiratory Rate 16 10/22/23 13:00 Blood Pressure 117/83 10/22/23 13:00 Pulse Oximetry 95 10/22/23 13:04 Oxygen Delivery Me thod Room Air 10/22/23 13:00 MDM - Abdominal Pain Medical Decision Making Medical decision making: Differential diagnosis including but not limited to and based on the above HPI, review of systems and physical exam: Patient had a CT yesterday that ruled out appendicitis etc. There are some fluid. Pain is much worse today so I am going to order an ultrasound to rule out ovarian torsion or other ovarian pathologies that might not be seen on a CT scan. Also repeating lab work and a urinalysis. But have concern for UTI as well. Orders placed to evaluate differential diagnosis based on the above differential, HPI and physical exam Lab Review: Laboratory results were reviewed and interpreted by myself the emergency room physician. No leukocytosis. No anemia. No renal failure. Urine does show nitrite positive urinary tract infections on treating that. Ultrasound of the pelvis: Normal endometrium. Small amount of fluid in the cul-de-sac and the greatest to the right may be from a ruptured ovarian cyst I reviewed the patient's medical record. Reexamination: Patient remained stable. Pain is improved. No altered mental status. No focal motor deficits. She has had no vomiting or nausea here. We discussed findings and she will chicken picker her medications. Assessment and plan: Urinary tract infection Ruptured ovarian cyst Polycystic ovarian syndrome Dehydration -IV Dilaudid, IV Zofran, IV fluids and IV Rocephin in the emergency room - Discharged home - Discussed findings and plan with patient. Answered any questions. - All laboratory values were reviewed and interpreted personally by myself, the ER physician - All imaging was reviewed and interpreted personally by myself, the ER physician. - Evaluation and treatment of this problem were appropriate in the emergency setting Lab Data 10/22/23 11:34 10/22/23 11:34 Labs/Radiology: Radiology Impressions Pelvic/Transvag US 10/22/23 11:20 IMPRESSION: 1. Normal endometrium. 2. Small amount of free fluid in the cul-de-sac and greatest to the RIGHT may be from a ruptured ovarian cyst. 3. Marked pelvic venous congestion. 4. Multiple small peripheral follicles in each ovary. Although the ovaries are not enlarged the distribution and number of these follicles suggest polycystic ovarian syndrome. Laboratory Results WBC 6.82 10^3/uL (3.29-11.43) 10/22/23 11:34 RBC 4.31 10^6/uL (3.85-5.65) 10/22/23 11:34 Hgb 13.00 g/dL (11.27-16.99) 10/22/23 11:34 Hct 39.6 % (36-47) 10/22/23 11:34 MCV 91.9 fl (85-98) 10/22/23 11:34 MCH 30.2 pg (27-33) 10/22/23 11:34 MCHC 32.8 g/dL (30-55) 10/22/23 11:34 RDW 12.8 % (12.1-15.1) 10/22/23 11:34 Plt Count 184 10^3/cmm (157-399) 10/22/23 11:34 MPV 9.9 fL (7.4-10.4) 10/22/23 11:34 Lymph % (Auto) Not Reportable 10/22/23 11:34 [place] % (Auto) Not Reportable 10/22/23 11:34 Lymph # (Auto) Not Reportable 10/22/23 11:34 [place] # (Auto) Not Reportable 10/22/23 11:34 Total Counted 100 (0-100) 10/22/23 11:34 Atypical Lymphs % 14.0 % (0-5) H 10/22/23 11:34 Absolute Neutrophils 1.6 10^3/cmm (1.4-6.5) 10/22/23 11:34 Segmented Neutrophils 23 % 10/22/23 11:34 Abs Segm Neuts (Man) 1.6 10/cmm (1.6-7.1) 10/22/23 11:34 Band Neutrophils 0.0 % 10/22/23 11:34 Abs Band Neuts (Man) 0.0 10^3/cmm (0.0-1.2) 10/22/23 11:34 Absolute Lymphocytes 5.0 10^3/cmm (1.2-3.4) H 10/22/23 11:34 Lymphocytes (Manual) 60 % 10/22/23 11:34 Monocytes (Manual) 2.0 % 10/22/23 11:34 Absolute Monocytes 0.1 10^3/cmm (0.1-0.6) 10/22/23 11:34 Eosinophils (Manual) 1 % 10/22/23 11:34 Absolute Eosinophils 0.1 10^3/cmm (0.0-0.7) 10/22/23 11:34 Basophils (Manual) 0.0 % 10/22/23 11:34 Absolute Basophils 0.0 10^3/cmm (0.0-0.2) 10/22/23 11:34 Platelet Estimate Decreased (Normal) L 10/22/23 11:34 Sodium 139 mmol/L (136-145) 10/22/23 11:34 Potassium 3.8 mmol/L (3.5-5.1) 10/22/23 11:34 Chloride 107 mmol/L (98-107) 10/22/23 11:34 Carbon Dioxide 21 mmol/L (22-29) L 10/22/23 11:34 Anion Gap 14.8 (5-19) 10/22/23 11:34 BUN 11 mg/dL (6-20) 10/22/23 11:34 Creatinine 0.9 mg/dL (0.5-0.9) 10/22/23 11:34 GFR Calculation 74.0 mL/min (90-130) L 10/22/23 11:34 Glucose 90 mg/dL (65-115) 10/22/23 11:34 Calculated Osmolality 287 mOsm/kg (285-295) 10/22/23 11:34 Calcium 8.8 mg/dL (8.5-10.5) 10/22/23 11:34 Total Bilirubin 0.6 mg/dL (0.15-1.2) 10/22/23 11:34 AST 23 U/L (0-32) 10/22/23 11:34 ALT 28 U/L (0-33) 10/22/23 11:34 Alkaline Phosphatase 95 U/L (35-105) 10/22/23 11:34 C-Reactive Protein 7.6 mg/L (0.0-4.9) H 10/22/23 11:34 Total Protein 7.1 g/dL (6.6-8.7) 10/22/23 11:34 Albumin 4.2 g/dL (3.5-5.2) 10/22/23 11:34 Globulin 2.9 g/dL (1.3-4.6) 10/22/23 11:34 HCG, Qual Negative (Negative) 10/22/23 11:34 Urine Color Dark yellow (Yellow) A 10/22/23 11:57 Urine Appearance Clear (CLEAR) 10/22/23 11:57 Urine pH 5.5 (5-7) 10/22/23 11:57 Ur Specific [place] 1.028 (1.005-1.030) 10/22/23 11:57 Urine Protein Trace (Negative) A 10/22/23 11:57 Urine Glucose (UA) Negative (Normal) 10/22/23 11:57 Urine Ketones Trace (Negative) 10/22/23 11:57 Urine Blood Negative (Negative) 10/22/23 11:57 Urine Nitrate Positive (Negative) A 10/22/23 11:57 Urine Bilirubin Negative (Negative) 10/22/23 11:57 Urine Urobilinogen 1.0 mg/dL (Negative) 10/22/23 11:57 Ur Leukocyte Esterase Trace (Negative) A 10/22/23 11:57 Urine RBC 0-2 /hpf (0-2) 10/22/23 11:57 Urine WBC 11-20 /hpf (0-5) H 10/22/23 11:57 Ur Squamous Epith Cells 0-5 /hpf (0-5) 10/22/23 11:57 Amorphous Sediment Not Reportable 10/22/23 11:57 Urine Bacteria 4+ /hpf (NONE) H 10/22/23 11:57 Hyaline Casts 7.01 /lpf 10/22/23 11:57 All radiology interpretation(s) finalized by discharge Discharge Plan Discharge Patient Disposition: Home Clinical Impression: Urinary tract infection, PCOS (polycystic ovarian syndrome), Rupture of ovarian cyst, Dehydration Condition: Stable Prescriptions: New hydrocodone-acetaminophen 5-325 mg tablet 1 tab PO Q6H PRN (Reason: pain) Qty: 20 0RF diclofenac sodium 50 mg tablet,delayed release (DR/EC) 50 mg PO BID PRN (Reason: pain) Qty: 14 0RF Miralax 17 gram/dose powder 17 g PO DAILY Qty: 510 0RF Rx Instructions: Take 1 scoop daily while taking pain medications. cefdinir 300 mg capsule 300 mg PO BID 7 Days Qty: 14 0RF Discharge Orders: Discharge ED (Routine); Ordered 10/22/23 Ordered By: Kyung Granados Referrals: Fang Neely, [facility]-C [Primary Care Provider] - Discharge Diet: Usual diet Discharge Activity: Increase activity as tolerated Patient Instructions: Opioid Safety, Pain Management Activity Restrictions/Additional Instructions: Thank you for choosing [facility] for your healthcare needs today. Please realize this is an emergency room and that we are providing you with a medical screening exam and this may not be complete and all inclusive of all the testing and or work up that you may need to determine your ailment or severity of your illness. You have been screened and evaluated and felt safe for discharge. Health conditions do change or evolve sometimes and as such it is important that you follow up with your Primary Doctor to be re checked, 3-5 days is a general good time frame for follow up. You are always welcome to return to the ED for re assessment if your symptoms are worsening or you have new concerns Stand Alone Forms: Work/School Release Coding Level of Care Code ED Program Control Analyst for Melissa Nielsen
[2023-10-22 11:43] LABS: Hematocrit 39.6 % (36-47); Mean Corpuscular HGB Conc 32.8 g/dL (30-55); Mean Corpuscular Hemoglobin 30.2 pg (27-33); Mean Corpuscular Volume 91.9 fl (85-98); Mean Platelet Volume 9.9 fL (7.4-10.4); Platelet Count 184 10^3/cmm (157-399); Red Blood Count 4.31 10^6/uL (3.85-5.65); Red Cell Distribution Width 12.8 % (12.1-15.1); White Blood Count 6.82 10^3/uL (3.29-11.43)
[2023-10-22 11:57] LABS: Alanine Aminotransferase 28 U/L (0-33); Albumin Level 4.2 g/dL (3.5-5.2); Alkaline Phosphatase 95 U/L (35-105); Anion Gap 14.8 (5-19); Aspartate Amino Transferase 23 U/L (0-32); Blood Urea Nitrogen 11 mg/dL (6-20); C Reactive Protein 7.6 mg/L (0.0-4.9); Calcium 8.8 mg/dL (8.5-10.5); Carbon Dioxide 21 mmol/L (22-29); Chloride 107 mmol/L (98-107); Creatinine Clr Calc Pharmacy 109.9236; Globulin 2.9 g/dL (1.3-4.6); Glucose 90 mg/dL (65-115); Osmolality Calculated 287 mOsm/kg (285-295); Potassium 3.8 mmol/L (3.5-5.1); Sodium 139 mmol/L (136-145); Total Bilirubin 0.6 mg/dL (0.15-1.2); Total Protein 7.1 g/dL (6.6-8.7)
[2023-10-22 12:04] LABS: HCG, Serum Qual Negative (Negative)
[2023-10-22 12:17] LABS: Bilirubin Urine Negative (Negative); Blood Urine Negative (Negative); Glucose Urine UA Negative (Normal); Ketones Urine Trace (Negative); Leukocyte Esterase Urine Trace (Negative); Nitrate Urine Positive (Negative); Protein Urine Trace (Negative); Specific Gravity, Urine 1.028 (1.005-1.030); Urine Appearance Clear (CLEAR); Urine Color Dark Yellow (Yellow); pH Urine 5.5 (5-7)
[2023-10-22 12:22] LABS: Bacteria Urine 4+ /hpf; Hyaline Casts Urine 7.01 /lpf; RBC Urine 0-2 /hpf (0-2); Squamous Epithelial Cell Urine 0-5 /hpf (0-5)
[2023-10-22 12:31] LABS: Add Urine Culture? Yes
[2023-10-22 12:37] LABS: Slide Review Slide Review Perform
[2023-10-22 12:38] LABS: Absolute Eosinophils 0.1 10^3/cmm (0.0-0.7); Absolute Neutrophil 1.6 10^3/cmm (1.4-6.5); Absolute Segmented Neutrophil 1.6 10/cmm (1.6-7.1); Eosinophils 1 %; Lymphocytes 60 %; Monocytes Absolute 0.1 10^3/cmm (0.1-0.6); Platelet Estimate Decreased (Normal); Segmented Neutrophils 23 %; Total Cells Counted 100 (0-100)
--- NOTE | 2023-10-22 12:51 | PC.PHAR ---
PT STATES TAKES NO MEDICATIONS. ALBUTEROL INHALER, VIT D3 FILLED 08/26/23, AND NORCO 5-325 LAST FILL 10/20/23
[2023-10-22 13:00] VITALS: BP 117/83; PULSE 78; RESP 16; O2SAT 97
[2023-10-22] MEDS: ondansetron 2 mg/ML SDV 2 mL 4 MG IVP (13:03)
[2023-10-22 13:04] VITALS: O2SAT 95
[2023-10-22] MEDS: HYDROmorphone 1 mg/mL INJ 1 mL IVP (13:04)
[2023-10-22] MEDS: sodium chloride 0.9% 1,000 ML 999 ML IV (13:57)
[2023-10-22] MEDS: cefTRIAXone 1,000 mg SDV 1000 MG IVP (14:03)
[2023-10-22 16:15] VITALS: BP 118/81; PULSE 76; RESP 16; TEMP 36.8; O2SAT 97
== END 2023-10-22 16:08 | disposition home or self-care (01) ==
PROVIDERS: Emergency Provider Emergency Medicine; PCP Nurse Practitioner
DX: N39.0 Urinary tract infection, site not specified (principal); E28.2 Polycystic ovarian syndrome; E86.0 Dehydration
CPT/HCPCS: 36415; 76830; 76856; 80053; 81001; 84703; 85007; 85025; 86140; 87077; 87086; 87186; 96374; 96375; 99285; J0696; J1170; J2405; J7030

== ENCOUNTER → 2024-01-21 09:57 | Outpatient (BNVA) | payer MEDICAID, SELFPAY | PROVIDERS: PCP Nurse Practitioner; Visit Provider Nurse Practitioner | DX: E55.9 Vitamin D deficiency, unspecified (principal); R53.83 Other fatigue | CPT/HCPCS: 82306; 86800 ==

== ENCOUNTER → 2024-02-29 09:27 | Outpatient (BNVA) | payer MEDICAID, SELFPAY | PROVIDERS: PCP Nurse Practitioner; Visit Provider Nurse Practitioner | DX: M25.512 Pain in left shoulder (principal); G89.29 Other chronic pain; M75.42 Impingement syndrome of left shoulder; M75.82 Other shoulder lesions, left shoulder; M62.838 Other muscle spasm | CPT/HCPCS: 73030 ==

== ENCOUNTER 2024-03-24 08:00 | Outpatient (CLI) | payer MEDICAID, SELFPAY ==
--- NOTE | 2024-03-24 08:00 | IR_ITS ---
WS: [id number] SHOULDER ARTHROGRAM LEFT Fluoroscopic guided left shoulder arthrogram CLINICAL INFORMATION: M25.512 - Pain in left shoulder PROCEDURE: The procedure including risks, benefits and complications were discussed with the patient, who agreed to proceed. Using sterile technique, the patient was prepped and draped in the usual ster ile fashion. After 1% lidocaine injection using fluoroscopic guidance, a 22-gauge spinal needle was a dvanced into the glenohumeral joint. Approximately 13 ml of a solution containing 5 ml normal saline, 10 ml Omnipaque 240, 5 ml 1% lidocaine, and 0.1 ml gadolinium was administered. No immediate complic ations. FLUOROSCOPY TIME: 1min [id number] # of spot films: 2 IR/IR arthrogram shoulderLT [id number] IMPRESSION: Uncomplicated fluoroscopic-guided left shoulder arthrogram. MRI to follow.
--- NOTE | 2024-03-24 08:11 | MR_ITS ---
WS: [id number] EXAMINATION: MR shoulder LT ARTHROGRAM ORDER DATE: 03/24/2024 8:12 AM COMPARISON: MRI 07/06/2023 HISTORY: M75.42 - Impingement syndrome of left shoulder CONTRAST: Intra-articular gadolinium TECHNIQUE: Coronal T1, coronal PD, coronal T2 fat-sat, axial PD, axial T2, sagittal PD fat-sat and sa gittal T2 fat-sat imaging. LEFT shoulder arthrogram post intra-articular administration of gadolinium mixture. Coronal T1 axial and T1 sagittal T1 images with fat saturation technique. FINDINGS: Minimal edema AC joint. Subacromial space is relatively well preserved. Trace subacromial fluid. Dist al supraspinatus and infraspinatus are intact with mild tendinopathy similar to previous. Normal teres minor. Normal subscapularis. Biceps tendon appears intact within the bicipital groove. I ntra-articular biceps tendon appears intact. Normal coracoid. Normal bone marrow signal in the glenoi d. Stable suggestion of a tiny Hill-Sachs lesion at the level the coracoid. No edema. Post arthrogram images demonstrate superior and inferior glenohumeral ligaments appear intact. Irregu larity with contrast dissecting along the middle glenohumeral ligament with an abnormal appearance blanco spicious for partial tear. Suspected tiny anterior superior labral tear extending into the biceps lab ral anchor with irregularity. Labrum otherwise appears intact. MR/MR shoulder LT wo/w con [id number] IMPRESSION: 1. Irregularity with suspected partial tear of the anterior superior labrum ex tending into the middle glenohumeral ligament and biceps labral anchor with irr egularity and dissecting contrast. 2. Intra-articular biceps tendon appears intact. 3. Tendinopathy distal supraspinatus and infraspinatus. 4. No other significant changes compared to previous.
[2024-03-24] MEDS: gadobenate dimeglumine 20 mL vial IV (09:59)
[2024-03-24] MEDS: iohexol 240 mg/mL 50 mL Btl 20 ML INTRA-ARTI (10:00)
== END 2024-03-24 08:08 | disposition home or self-care (01) ==
PROVIDERS: PCP Nurse Practitioner; Visit Provider Nurse Practitioner
DX: M75.42 Impingement syndrome of left shoulder (principal); M75.82 Other shoulder lesions, left shoulder
CPT/HCPCS: 23350; 73223; 77002

== ENCOUNTER 2024-04-20 21:27 | Emergency (ER) | payer SELFPAY ==
[2024-04-20 21:33] VITALS: BP 143/91; PULSE 96; RESP 20; TEMP 36.4; O2SAT 99; BMI 33.9
[2024-04-20 21:55] LABS: Basophils % 0.6 %; Eosinophils # 0.1 10^3/uL (0.0-0.8); Eosinophils % 1.8 %; Hematocrit 40.9 % (36-47); Lymphocytes # 3.1 10^3/uL (0.8-4.8); Lymphocytes % 45.7 %; Mean Corpuscular HGB Conc 33.5 g/dL (30-55); Mean Corpuscular Hemoglobin 30.2 pg (27-33); Mean Corpuscular Volume 90.1 fl (85-98); Mean Platelet Volume 9.8 fL (7.4-10.4); Monocytes # 0.5 10^3/uL (0.2-0.9); Monocytes % 7.1 %; Neutrophils # 3.04 10^3/uL (1.8-7.7); Neutrophils % 44.7 %; Nucleated Red Blood Cells % 0 %; Platelet Count 232 10^3/cmm (157-399); Red Blood Count 4.54 10^6/uL (3.85-5.65); Red Cell Distribution Width 13.3 % (12.1-15.1)
[2024-04-20 22:12] LABS: Alanine Aminotransferase 12 U/L (0-33); Albumin Level 4.4 g/dL (3.5-5.2); Alkaline Phosphatase 79 U/L (35-105); Anion Gap 14.9 (5-19); Aspartate Amino Transferase 11 U/L (0-32); Blood Urea Nitrogen 13 mg/dL (6-20); Calcium 8.9 mg/dL (8.5-10.5); Carbon Dioxide 25 mmol/L (22-29); Chloride 103 mmol/L (98-107); Creatinine Clr Calc Pharmacy 107.2818; Globulin 2.5 g/dL (1.3-4.6); Glucose 86 mg/dL (65-115); Lipase 35 U/L (13-60); Osmolality Calculated 287 mOsm/kg (285-295); Potassium 3.9 mmol/L (3.5-5.1); Sodium 139 mmol/L (136-145); Total Bilirubin 0.4 mg/dL (0.15-1.2); Total Protein 6.9 g/dL (6.6-8.7)
[2024-04-20 22:17] LABS: Bilirubin Urine Negative (Negative); Blood Urine 1+ (Negative); Glucose Urine UA Negative (Normal); Ketones Urine Negative (Negative); Leukocyte Esterase Urine Negative (Negative); Nitrate Urine Negative (Negative); Protein Urine Negative (Negative); Specific Gravity, Urine 1.008 (1.005-1.030); Urine Appearance Clear (CLEAR); Urine Color Yellow (Yellow); Urobilinogen Urine 0.2 mg/dL (Negative)
[2024-04-20 22:22] LABS: Add Urine Microscopic? YES; Bacteria Urine None Seen /hpf; Hyaline Casts Urine 0-4 /lpf; RBC Urine 0-2 /hpf (0-2); Squamous Epithelial Cell Urine 0-5 /hpf (0-5); WBC Urine 0-5 /hpf (0-5)
[2024-04-20 22:23] LABS: HCG, Serum Qual Negative (Negative)
--- NOTE | 2024-04-20 22:53 | ED_ITS ---
HPI - Abdominal Pain 2 General: Chief Complaint: Abdominal Pain Stated Complaint: right side abd pain Time Seen by Provider: 04/20/24 22:48 Source: patient Mode of arrival: ambulatory Limitations: no limitations History of Present Illness: Patient is a 28-year-old female presents to ED today with a complaint of abdominal pain over the past few weeks. She states pain has been progressively worse and more constant over the past several days. She states pain is significantly worse with eating or drinking. He is not having any vomiting or changes in her bowel movements. No fevers. No urinary complaints. Patient states she was seen here back in October for similar symptoms although was not sure what she was diagnosed with. Patient feels like most of her pain is located to her right upper quadrant with radiation into her back. MD elicited complaint: abdominal pain Onset (ago): week(s) Pain Consistency: constant Location: RUQ Severity: severe Quality: sharp Radiation: none Migration to: no migration Exacerbating factors: eating Relieving factors: nothing Associated Symptoms: Denies chills, diarrhea, dysuria, fever(s), hematochezia, melena and vomiting Related Data Previous Rx's ?Medication ?Instructions ?Recorded cholecalciferol (vitamin D3) 125 125 mcg PO DAILY #30 caps 01/21/24 mcg (5,000 unit) capsule verapamil 40 mg tablet 40 mg PO BID #60 tabs lorazepam 1 mg tablet 1 mg PO DAILY PRN anxiety/MR I #2 02/29/24 tabs Allergies Allergy/AdvReac Type Severity Reaction Status Date / Time diltiazem Allergy Intermediate palpitation Verified 04/20/24 21:37 s metoprolol Allergy Mild light Verified 04/20/24 21:37 headedness Review of Systems 2 Const: Denies: fever(s), chills, body aches, fatigue or malaise Card: Denies: chest pain Resp: Denies: dyspnea GI: Reports: abdominal pain; Denies: vomiting, diarrhea, hematochezia or melena : Denies: flank pain, difficulty voiding, dysuria, urinary frequency, urinary urgency, urinary hesitancy or vaginal discharge Musc: Reports: back pain (feels like RUQ pain radiates into back); Denies: neck pain, extremity pain, extremity swelling, joint pain, joint swelling or joint redness Skin/Breast: Denies: rash Neuro: Denies: headache(s), numbness in extremities, weakness in extremities, sensory changes or dizziness PFSH ED 2 PFSH: Medical History Palpitations Chronic left shoulder pain Trapezius muscle spasm Tendonitis of left rotator cuff Impingement syndrome, shoulder, left Obesity, morbid, BMI 40.0-49.9 Family history of breast cancer in first degree relative PCOS (polycystic ovarian syndrome) Reports being diagnosed with PCOS in 2019 with irregular bleeding after the Nexplanon was removed. This was diagnosed by a doctor in [place]. Surgical History H/O tubal ligation (~05/2022) Right radial fracture At the age of 7 which was repaired with surgery. History of tonsillectomy At the age of 5-no complications History of arthroplasty of knee bilateral 2 times--both surgeries were performed in 2012 Family History Grandmother Breast cancer maternal, diagnosed at age 30. She also had cervical cancer diagnosed at the age of 50. Mother Cancer thyroid cancer diagnosed in her 30s Breast cancer diagnosed at age 27--lump was palpated while patient was breast-feeding and she was diagnosed with cancer. Underwent lumpectomy with radiation and chemotherapy Hypertension Father Diabetes Hyperlipidemia Hypertension Obese Grandfather Diabetes maternal and paternal Hyperlipidemia paternal and maternal Hypertension maternal Denies family history of Colon cancer Ovarian cancer Heart disease Anesthesia complication Stroke Social History Smoking and tobacco/nicotine status: never used tobacco/nicotine Alcohol intake: former Substance/Drug Use: never Adopted: No Caregiver/support person: No Lives independently: Yes Household members: family Housing: House Marital status: Single Number of children: 2 service: No Current occupational status: employed Current occupation: [employer] Pets and animals: Yes Do you think of yourself as: Straight/Heterosexual Current gender identity: Female Female Reproductive History: Para: 2 Physical Exam 2 Const: COMMON NORMALS: no acute distress, patient oriented x3, no limitations, alert and well nourished GENERAL APPEARANCE: cooperative Eye: COMMON NORMALS: no scleral icterus Resp: COMMON NORMALS: normal respiratory effort and clear to auscultation bilaterally AUSCULTATION: clear to auscultation bilaterally Cardio: COMMON NORMALS: regular rate and regular rhythm RATE: regular rate RHYTHM: regular rhythm GI: COMMON NORMALS: Normal to inspection, nondistended, normoactive bowel sounds present, No hepatosplenomegaly present and no masses INSPECTION: Yes normal to inspection AUSCULTATION: Yes normoactive bowel sounds PALPATION: Yes Tenderness to palpation present (GI) (diffuse max tenderness RUQ), Yes Guarding due to palpation present (GI) (voluntary) and Yes No hepatosplenomegaly present : COMMON NORMALS: Yes no CVA tenderness BLADDER/KIDNEY EXAM: Yes no CVA tenderness Back/Pelvis: COMMON NORMALS: no CVA tenderness Neuro: COMMON NORMALS: patient oriented x3 SENSORIUM/ORIENTATION: Yes alert Course 2 Vital Signs: Vital signs: Vital Signs Temperature 97.6 F 04/20/24 21:33 Pulse Rate 96 04/20/24 21:33 Respiratory Rate 20 H 04/20/24 21:33 Blood Pressure 143/91 04/20/24 21:33 Pulse Oximetry 99 04/20/24 21:33 Oxygen Delivery Me thod Room Air 04/20/24 21:33 MDM - Abdominal Pain Medical Decision Making Patient's vital signs are stable. Her blood work overall is unremarkable. UA without evidence of infection. CT imaging is unremarkable. She will be allowed discharge with recommendations to follow-up with her primary care provider. Return to ED precautions discussed. Differential Diagnosis Likely abdominal pain Medical Records I reviewed the patient's medical records. Lab Data I reviewed the patient's lab results. 04/20/24 21:50 04/20/24 21:50 Labs/Radiology: Radiology Impressions Abdomen/Pelvis CT 04/20/24 23:03 IMPRESSION: 1. No acute findings in the abdomen/pelvis. 2. Improving mild splenomegaly. 3. Mild hepatomegaly. Laboratory Results WBC 6.80 10^3/uL (3.29-11.43) 04/20/24 21:50 RBC 4.54 10^6/uL (3.85-5.65) 04/20/24 21:50 Hgb 13.70 g/dL (11.27-16.99) 04/20/24 21:50 Hct 40.9 % (36-47) 04/20/24 21:50 MCV 90.1 fl (85-98) 04/20/24 21:50 MCH 30.2 pg (27-33) 04/20/24 21:50 MCHC 33.5 g/dL (30-55) 04/20/24 21:50 RDW 13.3 % (12.1-15.1) 04/20/24 21:50 Plt Count 232 10^3/cmm (157-399) 04/20/24 21:50 MPV 9.8 fL (7.4-10.4) 04/20/24 21:50 Neut % (Auto) 44.7 % 04/20/24 21:50 Lymph % (Auto) 45.7 % 04/20/24 21:50 [place] % (Auto) 7.1 % 04/20/24 21:50 Eos % (Auto) 1.8 % 04/20/24 21:50 Baso % (Auto) 0.6 % 04/20/24 21:50 Neut # (Auto) 3.04 10^3/uL (1.8-7.7) 04/20/24 21:50 Lymph # (Auto) 3.1 10^3/uL (0.8-4.8) 04/20/24 21:50 [place] # (Auto) 0.5 10^3/uL (0.2-0.9) 04/20/24 21:50 Eos # (Auto) 0.1 10^3/uL (0.0-0.8) 04/20/24 21:50 Baso # (Auto) 0.0 10^3/uL (0.0-0.1) 04/20/24 21:50 Nucleated RBC % (auto) 0 % 04/20/24 21:50 Nucleated RBCs # 0.0 /100WBC 04/20/24 21:50 Sodium 139 mmol/L (136-145) 04/20/24 21:50 Potassium 3.9 mmol/L (3.5-5.1) 04/20/24 21:50 Chloride 103 mmol/L (98-107) 04/20/24 21:50 Carbon Dioxide 25 mmol/L (22-29) 04/20/24 21:50 Anion Gap 14.9 (5-19) 04/20/24 21:50 BUN 13 mg/dL (6-20) 04/20/24 21:50 Creatinine 0.9 mg/dL (0.5-0.9) 04/20/24 21:50 GFR Calculation 74.0 mL/min (90-130) L 04/20/24 21:50 Glucose 86 mg/dL (65-115) 04/20/24 21:50 Calculated Osmolality 287 mOsm/kg (285-295) 04/20/24 21:50 Calcium 8.9 mg/dL (8.5-10.5) 04/20/24 21:50 Total Bilirubin 0.4 mg/dL (0.15-1.2) 04/20/24 21:50 AST 11 U/L (0-32) 04/20/24 21: ALT 12 U/L (0-33) 04/20/24 21: Alkaline Phosphatase 79 U/L (35-105) 04/20/24 21:50 Total Protein 6.9 g/dL (6.6-8.7) 04/20/24 21:50 Albumin 4.4 g/dL (3.5-5.2) 04/20/24 21:50 Globulin 2.5 g/dL (1.3-4.6) 04/20/24 21:50 Lipase 35 U/L (13-60) 04/20/24 21:50 HCG, Qual Negative (Negative) 04/20/24 21:50 Urine Color Yellow (Yellow) 04/20/24 21:35 Urine Appearance Clear (CLEAR) 04/20/24 21:35 Urine pH 7.0 (5-7) 04/20/24 21:35 Ur Specific [place] 1.008 (1.005-1.030) 04/20/24 21:35 Urine Protein Negative (Negative) 04/20/24 21:35 Urine Glucose (UA) Negative (Normal) 04/20/24 21:35 Urine Ketones Negative (Negative) 04/20/24 21: Urine Blood 1+ (Negative) A 04/20/24 21:35 Urine Nitrate Negative (Negative) 04/20/24 21:35 Urine Bilirubin Negative (Negative) 04/20/24 21:35 Urine Urobilinogen 0.2 mg/dL (Negative) 04/20/24 21:35 Ur Leukocyte Esterase Negative (Negative) 04/20/24 21:35 Urine RBC 0-2 /hpf (0-2) 04/20/24 21:35 Urine WBC 0-5 /hpf (0-5) 04/20/24 21:35 Ur Squamous Epith Cells 0-5 /hpf (0-5) 04/20/24 21:35 Amorphous Sediment Not Reportable 04/20/24 21:35 Urine Bacteria None seen /hpf (NONE) 04/20/24 21:35 Hyaline Casts 0-4 /lpf H 04/20/24 21:35 All radiology interpretation(s) finalized by discharge Discharge Plan Discharge Patient Disposition: Home Clinical Impression: Abdominal pain Qualifiers: Abdominal location: generalized Qualified Code(s): R10.84 - Generalized abdominal pain Condition: Stable Prescriptions: No Action lorazepam 1 mg tablet 1 mg PO DAILY PRN (Reason: anxiety/MRI) Qty: 2 0RF Rx Instructions: Take one (1) tablet 1-2 hours prior to MRI appointment. Bring the 2nd tablet with them to the MRI appointment. Repeat dose immediately prior to MRI, if needed. cholecalciferol (vitamin D3) 125 mcg (5,000 unit) capsule 125 mcg PO DAILY Qty: 30 2RF verapamil 40 mg tablet 40 mg PO BID Qty: 60 0RF Discharge Orders: Discharge ED (Routine); Ordered 04/20/24 Ordered By: Mona Moss Referrals: Fang Neely, [facility] [Primary Care Provider] - Patient Instructions: Abdominal Pain (ED) Activity Restrictions/Additional Instructions: As we discussed, your ED workup did not reveal any etiology for your abdominal discomfort. Please follow-up with primary care for further evaluation. You may return to the emergency department at anytime for any further concerns you may have. I hope you begin to feel better soon. Print Language: Hungarian Coding Level of Care Code ED Federal Appellate Law Clerk for Melissa Nielsen
--- NOTE | 2024-04-20 23:03 | CTR_ITS ---
PROCEDURE INFORMATION: Exam: CT Abdomen And Pelvis With Contrast Exam date and time: 04/20/2024 11:21 PM Age: 28 years old Clinical indication: Abdominal pain; Generalized; Additional info: Abdominal pain-diffuse max ruq TECHNIQUE: Imaging protocol: Computed tomography of the abdomen and pelvis with contrast. Radiation optimization: All CT scans at this facility use at least one of these dose optimization techniques: automated exposure control; mA and/or kV adjustment per patient size (includes targeted exams where dose is matched to clinical indication); or iterative reconstruction. Contrast material: OMNI 350; Contrast volume: 100 ml; Contrast route: INTRAVENOUS (IV); COMPARISON: 1. CT abdomen pelvis w con* [id number] 05/29/2022 11:[address] abdomen pelvis w con* [id number] 10/20/2023 6:10 PM RADIATION DOSE METRICS: Total DLP (mGy-cm): 841.37 FINDINGS: Liver: The liver is enlarged, measuring 19.7 cm craniocaudal. No suspicious liver lesion. Gallbladder and biliary ducts: Normal. No calcified stones. No ductal dilation. Pancreas: Normal. No ductal dilation. Spleen: Improving mild splenomegaly. Adrenal glands: Normal. No mass. Kidneys and ureters: Normal. No hydronephrosis. Stomach and bowel: Unremarkable. No obstruction. No mucosal thickening. Appendix: No evidence of appendicitis. Intraperitoneal space: Trace free pelvic fluid is likely physiologic. Vasculature: Unremarkable. No abdominal aortic aneurysm. Lymph nodes: Unremarkable. No enlarged lymph nodes. Urinary bladder: Unremarkable as visualized. Reproductive: Unremarkable as visualized. Bones/joints: Unremarkable. No acute fracture. Soft tissues: Unremarkable. CT/CT abdomen pelvis w con* [id number] IMPRESSION: 1. No acute findings in the abdomen/pelvis. 2. Improving mild splenomegaly. 3. Mild hepatomegaly.
[2024-04-20] MEDS: morphine 4 mg/mL SDV 1 mL IVP (23:19)
[2024-04-20] MEDS: ondansetron 2 mg/ML SDV 2 mL 4 MG IVP (23:19)
[2024-04-20] MEDS: iohexol 350 mg/mL 500 mL Btl (per mL) IV (23:25)
[2024-04-20 23:37] VITALS: BP 112/75; PULSE 90; RESP 16; O2SAT 96
[2024-04-21 00:02] VITALS: BP 112/75; PULSE 89; O2SAT 96
== END 2024-04-21 00:10 | disposition home or self-care (01) ==
PROVIDERS: Emergency Medicine; Emergency Provider Physician Assistant; PCP Nurse Practitioner
DX: R10.84 Generalized abdominal pain (principal)
CPT/HCPCS: 36415; 74177; 80053; 81001; 83690; 84703; 85025; 96374; 96375; 99285; J2270; J2405

== ENCOUNTER → 2024-04-26 12:25 | Outpatient (BNVA) | payer MEDICAID, SELFPAY | PROVIDERS: PCP Nurse Practitioner; Visit Provider Nurse Practitioner Family | DX: R10.9 Unspecified abdominal pain (principal); G89.29 Other chronic pain; R10.11 Right upper quadrant pain; R11.2 Nausea with vomiting, unspecified | CPT/HCPCS: 80053; 85025; 86003; 86008 ==

== ENCOUNTER → 2024-05-30 09:49 | Outpatient (BNVA) | payer SELFPAY | PROVIDERS: PCP Nurse Practitioner; Visit Provider Orthopaedic Surgery | DX: M25.312 Other instability, left shoulder (principal); Z01.818 Encounter for other preprocedural examination | CPT/HCPCS: 36415; 73030; 80053; 81001; 85025 ==

== ENCOUNTER 2024-06-22 05:50 | Day surgery (SDC) | payer MEDICAID, SELFPAY ==
[2024-06-22] VITALS (10 sets, daily range): BP systolic 107–149; BP diastolic 77–97; PULSE 67–95; RESP 14–17; TEMP 36.1–36.3; O2SAT 95–100; BMI 35.0
[2024-06-22] MEDS: sodium chloride 0.9% 1,000 ML 30 ML IV (06:11)
--- NOTE | 2024-06-22 06:24 | ANES.PREANE2 ---
Pre-Anesthetic Assessment Height/Weight: Height 5 ft 6 in Weight 217 lb Temp Pulse Resp BP Pulse Ox O2 Del Method 97.2 F L 77 17 149/82 98 Room Air 06/22/24 06:02 06/22/24 06:02 06/22/24 06:02 06/22/24 06:02 06/22/24 06:02 06/22/24 06:04 Preop Diagnosis: Labral tear Operation Date: 06/22/24 07:00 Proposed Procedures p Left Shoulder Diagnostic and Surgical Arthroplasty(Left) - Frank Ye MD s Labral Debridement vs Repair(Left) - Frank Ye MD Was Beta Rocky taken within 24 hours: N/A Was Clonidine taken within 24 hours: N/A Last intake: Intake Last Liquid Date 06/21/24 Last Liquid Time 21:00 Last Solid Date 06/21/24 Last Solid Time 21:00 Social No alcohol and No tobacco Exam alert, oriented x 3, clear to auscultation bilaterally and regular rate & rhythm Airway Submandibular: within normal limits Cervical ROM: within normal limits Mallampati: Class III Dentition: full Comments: Comments: Smaller mouth opening, consider video laryngoscope Anesthetic Plan ASA status: 3 Anesthesia: General Other: No prior issues with anesthesia NPO since yesterday evening History of GERD on Pepcid Tachycardia, concern for POTS on chronic verapamil. Will open fluids PCOS Labs from May reviewed and acceptable for procedure Prior EKG just showing sinus tachycardia Plan for general anesthesia with preop nerve block Medications/Allergies Home Medications ?Medication ?Instructions ?Recorded ?Confirmed ?Last Taken ?Type cholecalciferol (vitamin D3) 125 125 mcg PO DAILY #30 caps 01/21/24 06/21/24 Unknown Rx mcg (5,000 unit) capsule verapamil 40 mg tablet 40 mg PO BID #60 tabs 01/21/24 06/21/24 Unknown Rx lorazepam 1 mg tablet 1 mg PO DAILY PRN anxiety/MRI #2 02/29/24 06/21/24 Unknown Rx tabs famotidine 40 mg tablet 40 mg PO DAILY #30 tabs 04/26/24 06/21/24 Unknown Rx Allergies Allergy/AdvReac Type Severity Reaction Status Date / Time diltiazem Allergy Intermediate palpitation Verified 06/20/24 11:56 s metoprolol Allergy Mild light Verified 06/20/24 11:56 headedness Current Medications Generic Name Dose Route Start Last Admin Trade Name Héctorq PRN Reason Stop Dose Admin Sodium Chloride 1,000 mls @ 30 mls/hr 06/22/24 06:00 06/22/24 06:11 Sodium Chloride 0.9% IV 06/23/24 05:59 30 mls/hr .Q24H CHASTITY Administration PFSH Anesthesia Medical History Palpitations Chronic left shoulder pain Trapezius muscle spasm Tendonitis of left rotator cuff Impingement syndrome, shoulder, left Obesity, morbid, BMI 40.0-49.9 Family history of breast cancer in first degree relative PCOS (polycystic ovarian syndrome) Reports being diagnosed with PCOS in 2019 with irregular bleeding after the Nexplanon was removed. This was diagnosed by a doctor in [place]. Surgical History H/O tubal ligation (~05/2022) Right radial fracture At the age of 7 which was repaired with surgery. History of tonsillectomy At the age of 5-no complications History of arthroplasty of knee bilateral 2 times--both surgeries were performed in 2012 Family History Grandmother Breast cancer maternal, diagnosed at age 30. She also had cervical cancer diagnosed at the age of 50. Mother Cancer thyroid cancer diagnosed in her 30s Breast cancer diagnosed at age 27--lump was palpated while patient was breast-feeding and she was diagnosed with cancer. Underwent lumpectomy with radiation and chemotherapy Hypertension Father Diabetes Hyperlipidemia Hypertension Obese Grandfather Diabetes maternal and paternal Hyperlipidemia paternal and maternal Hypertension maternal Denies family history of Colon cancer Ovarian cancer Heart disease Anesthesia complication Stroke Social History Smoking and tobacco/nicotine status: never used tobacco/nicotine Alcohol intake: former Substance/Drug Use: never Adopted: No Caregiver/support person: No Lives independently: Yes Household members: family Housing: House Marital status: Single Number of children: 2 service: No Current occupational status: employed Current occupation: [employer] Pets and animals: Yes Do you think of yourself as: Straight/Heterosexual Current gender identity: Female Female Reproductive History Para: 2 Data Anesthesia Cardiac Studies: Echocardiogram Ultrasound 06/01/19 Cardiac Event Monitor 06/10/23 Holter Monitor 11/07/22
--- NOTE | 2024-06-22 06:47 | SUR.PREOP ---
Time out completed at bedside with Dr Hull, Estrellita RN and Lilly RN. Interscalene block was administered to patient's left neck/shoulder using 30ml of 0.5% Ropivicaine, and Versed 2mg. Patient tolerated well.
--- NOTE | 2024-06-22 06:51 | ANES.PROC ---
Anesthesia Procedures Procedure/Date: 06/22/24 Nerve Block ^: Nerve Block 1: Main Anesthesia: other (100 mcg fentanyl and 2 mg Versed) Time Out Performed: Yes Consent: requested by attending/covering physician and from patient Nerve block location: interscalene Anesthesia monitors applied: pulse oximetry, EKG, BP cuff and oxygen Nerve block position: supine Anesthetic Used: ropivicaine 0.5% Amount of anesthesia used (mL): 30 Ultrasound used to: recognize landmarks Nerve Stimulator Used?: Yes Interscalene/Femoral BLK: other needle (pjunk 4inch) Injection: neg aspiration of heme Patient Tolerated Procedure: well Complications: none Additional Comments: decadron 4mg
--- NOTE | 2024-06-22 06:55 | W.PM.OPSFHP ---
Same Day Surgery H&P Indication for Procedure/HPI DATE OF PROCEDURE: June 22, 2024 CHIEF COMPLAINT/INDICATIONFOR SURGICAL PROCEDURE: Painful left shoulder PREOP DIAGNOSIS: Labral tear PLANNED PROCEDURE: Operation Date: 06/22/24 07:00 Proposed Procedures p Left Shoulder Diagnostic and Surgical Arthroplasty(Left) - Frank Ye MD s Labral Debridement vs Repair(Left) - Frank Ye MD Medications/Allergies* Allergies/Adverse Reactions Allergy/AdvReac Type Severity Reaction Status Date / Time diltiazem Allergy Intermediate palpitation Verified 06/20/24 11:56 s metoprolol Allergy Mild light Verified 06/20/24 11:56 headedness Current Medications: Generic Name Dose Route Start Last Admin Trade Name Freq PRN Reason Stop Dose Admin Sodium Chloride 1,000 mls @ 30 mls/hr 06/22/24 06:00 06/22/24 06:11 Sodium Chloride 0.9% IV 06/23/24 05:59 30 mls/hr .Q24H CHASTITY Administration Pertinent History/Comorbid Conditions* Medical History (Updated 05/30/24 @ 11:13 by Frank Ye MD) Palpitations Chronic left shoulder pain Trapezius muscle spasm Tendonitis of left rotator cuff Impingement syndrome, shoulder, left Obesity, morbid, BMI 40.0-49.9 Family history of breast cancer in first degree relative PCOS (polycystic ovarian syndrome) Reports being diagnosed with PCOS in 2019 with irregular bleeding after the Nexplanon was removed. This was diagnosed by a doctor in [place]. Surgical History (Updated 01/13/23 @ 09:22 by Sugey Sigala APN, FAISAL) H/O tubal ligation (~05/2022) Right radial fracture At the age of 7 which was repaired with surgery. History of tonsillectomy At the age of 5-no complications History of arthroplasty of knee bilateral 2 times--both surgeries were performed in 2012 Family History (Updated 05/17/21 @ 14:18 by GREY Canseco) Diabetes Father Grandfather maternal and paternal Hyperlipidemia Father Grandfather paternal and maternal Breast cancer Grandmother maternal, diagnosed at age 30. She also had cervical cancer diagnosed at the age of 50. Mother diagnosed at age 27--lump was palpated while patient was breast-feeding and she was diagnosed with cancer. Underwent lumpectomy with radiation and chemotherapy Cancer Mother thyroid cancer diagnosed in her 30s Hypertension Mother Father Grandfather maternal Obese Father Denies family history of Colon cancer Ovarian cancer Heart disease Anesthesia complication Stroke Social History Smoking and tobacco/nicotine status: never used tobacco/nicotine Alcohol intake: former Substance/Drug Use: never Adopted: No Caregiver/support person: No Lives independently: Yes Household members: family Housing: House Marital status: Single Number of children: 2 service: No Current occupational status: employed Current occupation: [employer] Pets and animals: Yes Do you think of yourself as: Straight/Heterosexual Current gender identity: Female Pertinent Exam Findings alert, oriented x 3, clear to auscultation bilaterally, regular rate & rhythm, operative site marked and procedure specific exam findings Recommendations Risks and benefits of procedure reviewed and Patient/family agree to proceed Surgery/Procedure today Coding Level of Care Code Acute Code for Melissa Nielsen
[2024-06-22 06:59] LABS: OR HCG Qualitative Urine Negative (Negative)
[2024-06-22] MEDS: ceFAZolin 2,000 mg SDV 2000 MG IVP (07:14)
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
--- NOTE | 2024-06-22 14:51 | ANE.PACU2 ---
Inpatient post-anesthesia follow up: Airway intact: Yes Vital signs: Temperature 97.3 F Pulse Rate 67 Respiratory Rate 17 Blood Pressure 127/80 Pulse Oximetry 97 Oxygen Delivery Me thod Room Air Oxygen Flow Rate 2 Fraction of Inspir ed Oxygen Hydration adequate: Yes Nausea and vomiting: No Pain level: 1 Mental status: Baseline
== END 2024-06-22 10:04 | disposition home or self-care (01) ==
PROVIDERS: PCP Nurse Practitioner; Visit Provider Orthopaedic Surgery
PROC: (CPT 29805; principal; 2024-06-22 07:00)
DX: S43.492A Other sprain of left shoulder joint, initial encounter (principal); M94.212 Chondromalacia, left shoulder; M75.42 Impingement syndrome of left shoulder; M71.9 Bursopathy, unspecified
CPT/HCPCS: 29806; 29826; 81025; C1713; J0690; J1100; J2250; J2371; J2405; J2704; J3010; J3490; J7030; J9999

== ENCOUNTER 2024-07-14 05:00 | Outpatient (RCR) | payer MEDICAID, SELFPAY | END 2024-08-13 23:59 | disposition home or self-care (01) | LOC: MPT 05:00 | PROVIDERS: Visit Provider Orthopaedic Surgery | DX: M25.512 Pain in left shoulder (principal); G89.29 Other chronic pain | CPT/HCPCS: 97161 ==

== ENCOUNTER 2024-08-14 05:00 | Outpatient (RCR) | payer MEDICAID, SELFPAY | END 2024-09-12 23:59 | disposition home or self-care (01) | LOC: MPT 05:00 | PROVIDERS: PCP Nurse Practitioner; Visit Provider Orthopaedic Surgery | DX: M25.519 Pain in unspecified shoulder (principal); G89.29 Other chronic pain | CPT/HCPCS: 97110; 97140 ==

== ENCOUNTER 2024-08-16 14:35 | Emergency (ER) | payer MEDICAID, SELFPAY ==
[2024-08-16] VITALS (10 sets, daily range): BP systolic 109–133; BP diastolic 68–90; PULSE 84–131; RESP 12–25; TEMP 37.9; O2SAT 94–97; BMI 36.9
--- NOTE | 2024-08-16 15:14 | ECG_ITS ---
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
--- NOTE | 2024-08-16 15:14 | XRR_ITS ---
PROCEDURE INFORMATION: Exam: XR Chest Exam date and time: 08/16/2024 3:15 PM Age: 29 years old Clinical indication: Dyspnea; Additional info: Dyspnea/cough TECHNIQUE: Imaging protocol: Radiologic exam of the chest. Views: 1 view. COMPARISON: CR XR chest 2V* [id number] 08/26/2023 10:20 AM FINDINGS: Lungs: Unremarkable. No consolidation. Pleural spaces: Unremarkable. No pleural effusion. No pneumothorax. Heart/Mediastinum: Unremarkable. No cardiomegaly. Bones/joints: Unremarkable. XR/XR chest 1V portable [id number] IMPRESSION: No acute findings.
--- NOTE | 2024-08-16 15:16 | W.ED.ARRPALP ---
Documented by User: Wale Guidry DO 08/17/24 08:53 HPI - Arrhythmia/Palpitations General: Chief Complaint: Arrhythmia/Palpitations Stated Complaint: chest pain, L arm pain, urgent care sent Time Seen by Provider: 08/16/24 15:13 History of Present Illness: 29-year-old female presents emergency room planing chest pain left arm pain rapid heart rate. Patient reports that she has a history of atrial fibrillation on arrival she is in sinus tachycardia. In addition she has a headache she has a history of migraines in the past. She tells me that she previously was diagnosed with atrial fibrillation has been on diltiazem and metoprolol but had side effects of both had to stop. She is currently on verapamil 40 mg twice a day she has been taking her dose regularly. No recent head trauma or shoulder injury. Related Data Home Medications ?Medication ?Instructions ?Recorded ?Confirmed No Known Home Medications 08/16/24 08/16/24 Allergies Allergy/AdvReac Type Severity Reaction Status Date / Time diltiazem Allergy Intermediate palpitation Verified 08/16/24 14:51 s metoprolol Allergy Mild light Verified 08/16/24 14:51 headedness Review of Systems Const: Denies: fever(s) or chills Card: Reports: chest pain and palpitations Resp: Denies: dyspnea GI: Denies: abdominal pain : Denies: dysuria, urinary frequency or urinary urgency Musc: Denies: neck pain or back pain Skin/Breast: Denies: rash PFSH ED PFSH: Medical History Paroxysmal atrial fibrillation with RVR Palpitations Chronic left shoulder pain Trapezius muscle spasm Tendonitis of left rotator cuff Impingement syndrome, shoulder, left Obesity, morbid, BMI 40.0-49.9 Family history of breast cancer in first degree relative PCOS (polycystic ovarian syndrome) Reports being diagnosed with PCOS in 2019 with irregular bleeding after the Nexplanon was removed. This was diagnosed by a doctor in [place]. Surgical History H/O tubal ligation (~05/2022) Right radial fracture At the age of 7 which was repaired with surgery. History of tonsillectomy At the age of 5-no complications History of arthroplasty of knee bilateral 2 times--both surgeries were performed in 2012 Family History Grandmother Breast cancer maternal, diagnosed at age 30. She also had cervical cancer diagnosed at the age of 50. Mother Cancer thyroid cancer diagnosed in her 30s Breast cancer diagnosed at age 27--lump was palpated while patient was breast-feeding and she was diagnosed with cancer. Underwent lumpectomy with radiation and chemotherapy Hypertension Father Diabetes Hyperlipidemia Hypertension Obese Grandfather Diabetes maternal and paternal Hyperlipidemia paternal and maternal Hypertension maternal Denies family history of Colon cancer Ovarian cancer Heart disease Anesthesia complication Stroke Social History Smoking and tobacco/nicotine status: never used tobacco/nicotine Alcohol intake: former Substance/Drug Use: never Adopted: No Caregiver/support person: No Lives independently: Yes Household members: family Housing: House Marital status: Single Number of children: 2 service: No Current occupational status: employed Current occupation: [employer] Pets and animals: Yes Do you think of yourself as: Straight/Heterosexual Current gender identity: Female Female Reproductive History: Para: 2 Physical Exam Const: COMMON NORMALS: no acute distress GENERAL APPEARANCE: cooperative and comfortable ORIENTATION/CONSCIOUSNESS: Yes awake, Yes oriented to person, Yes oriented to place and Yes oriented to time HENMT: COMMON NORMALS: normocephalic, atraumatic and hearing grossly normal bilaterally HEAD & SCALP: normocephalic and atraumatic Resp: COMMON NORMALS: normal respiratory effort, No retractions, No use of accessory muscles and clear to auscultation bilaterally AUSCULTATION: clear to auscultation bilaterally Cardio: COMMON NORMALS: regular rate, regular rhythm and No murmurs present (Cardio) RATE: regular rate RHYTHM: regular rhythm GI: COMMON NORMALS: Soft to palpation and No hepatosplenomegaly present AUSCULTATION: Yes normoactive bowel sounds PALPATION: Yes Soft to palpation, No Tenderness to palpation present (GI), No Guarding due to palpation present (GI) and Yes No hepatosplenomegaly present Extremity: COMMON NORMALS: normal to inspection, capillary refill normal, no clubbing, cyanosis or edema, no calf tenderness and no pedal edema Neuro: SENSORIUM/ORIENTATION: Yes oriented to person, Yes oriented to place and Yes oriented to time Skin: COMMON NORMALS: no rashes or lesions noted GENERAL SKIN EXAM: no rashes or lesions noted Course Vital Signs: Vital signs: Vital Signs Temperature 100.2 F H 08/16/24 14:40 Pulse Rate 94 08/16/24 20:09 Respiratory Rate 17 08/16/24 20:00 Blood Pressure 118/72 08/16/24 20:09 Pulse Oximetry 96 08/16/24 20:09 Oxygen Delivery Me thod Room Air 08/16/24 14:40 MDM - Arrhythmia/Palpitations Medical Decision Making Care signed out to Dr. Mandel at change of shift. See final notes for diagnosis and disposition. Patient signed out to me by prior emergency physician pending labs. EKG shows sinus tachycardia. With initial temperature 100.2, careful consideration was made for possible infectious etiology to the tachycardia. No obvious infection found. After receiving antipyretics, she feels much better. She has no cough, no dysuria, no abdominal pain, no meningismus. Headache is better. I am uncertain of the etiology of her symptoms but suspect viral process. She shows good understanding and will be discharged in stable and improved condition with follow-up primary care as needed Lab Data 08/16/24 16:34 08/16/24 16:34 Radiology Impressions Chest X-Ray 08/16/24 15:14 IMPRESSION: No acute findings. Laboratory Results WBC 6.60 10^3/uL (3.29-11.43) 08/16/24 16:34 RBC 4.31 10^6/uL (3.85-5.65) 08/16/24 16:34 Hgb 13.00 g/dL (11.27-16.99) 08/16/24 16:34 Hct 42.2 % (36-47) 08/16/24 16:34 MCV 97.9 fl (85-98) 08/16/24 16:34 MCH 30.2 pg (27-33) 08/16/24 16:34 MCHC 30.8 g/dL (30-55) 08/16/24 16:34 RDW 12.2 % (12.1-15.1) 08/16/24 16:34 Plt Count 169 10^3/cmm (157-399) 08/16/24 16:34 MPV 9.8 fL (7.4-10.4) 08/16/24 16:34 Neut % (Auto) 71.3 % 08/16/24 16:34 Lymph % (Auto) 20.5 % 08/16/24 16:34 [place]aden % (Auto) 7.4 % 08/16/24 16:34 Eos % (Auto) 0.2 % 08/16/24 16:34 Baso % (Auto) 0.3 % 08/16/24 16:34 Neut # (Auto) 4.71 10^3/uL (1.8-7.7) 08/16/24 16:34 Lymph # (Auto) 1.4 10^3/uL (0.8-4.8) 08/16/24 16:34 [place] # (Auto) 0.5 10^3/uL (0.2-0.9) 08/16/24 16:34 Eos # (Auto) 0.0 10^3/uL (0.0-0.8) 08/16/24 16:34 Baso # (Auto) 0.0 10^3/uL (0.0-0.1) 08/16/24 16:34 Nucleated RBC % (auto) 0 % 08/16/24 16:34 Nucleated RBCs # 0.0 /100WBC 08/16/24 16:34 Sodium 137 mmol/L (136-145) 08/16/24 16:34 Potassium 3.5 mmol/L (3.5-5.1) 08/16/24 16:34 Chloride 105 mmol/L (98-107) 08/16/24 16:34 Carbon Dioxide 14 mmol/L (22-29) L 08/16/24 16:34 Anion Gap 21.5 (5-19) H 08/16/24 16:34 BUN 11 mg/dL (6-20) 08/16/24 16:34 Creatinine 0.8 mg/dL (0.5-0.9) 08/16/24 16:34 GFR Calculation 84.2 mL/min (90-130) L 08/16/24 16:34 Glucose 83 mg/dL (65-115) 08/16/24 16:34 Calculated Osmolality 283 mOsm/kg (285-295) L 08/16/24 16:34 Calcium 8.3 mg/dL (8.5-10.5) L 08/16/24 16:34 Total Bilirubin 0.6 mg/dL (0.15-1.2) 08/16/24 16:34 AST 10 U/L (0-32) 08/16/24 16:34 ALT 11 U/L (0-33) 08/16/24 16:34 Alkaline Phosphatase 77 U/L (35-105) 08/16/24 16:34 Total Protein 5.8 g/dL (6.6-8.7) L 08/16/24 16:34 Albumin 4.0 g/dL (3.5-5.2) 08/16/24 16:34 Globulin 1.8 g/dL (1.3-4.6) 08/16/24 16:34 Urine Color Yellow (Yellow) 08/16/24 17:40 Urine Appearance Clear (CLEAR) 08/16/24 17:40 Urine pH 6.0 (5-7) 08/16/24 17:40 Ur Specific [place] 1.007 (1.005-1.030) 08/16/24 17:40 Urine Protein Negative (Negative) 08/16/24 17:40 Urine Glucose (UA) Negative (Normal) 08/16/24 17:40 Urine Ketones Negative (Negative) 08/16/24 17:40 Urine Blood Negative (Negative) 08/16/24 17:40 Urine Nitrate Negative (Negative) 08/16/24 17:40 Urine Bilirubin Negative (Negative) 08/16/24 17:40 Urine Urobilinogen 0.2 mg/dL (Negative) 08/16/24 17:40 Ur Leukocyte Esterase 1+ (Negative) A 08/16/24 17:40 Urine RBC 0-2 /hpf (0-2) 08/16/24 17:40 Urine WBC 6-10 /hpf (0-5) 08/16/24 17:40 Ur Squamous Epith Cells 6-10 /hpf (0-5) 08/16/24 17:40 Amorphous Sediment Not Reportable 08/16/24 17:40 Urine Bacteria None seen /hpf (NONE) 08/16/24 17:40 Hyaline Casts 0-4 /lpf H 08/16/24 17:40 Influenza A (PCR) Negative (Negative) 08/16/24 18:33 Influenza Type B (PCR) Negative (Negative) 08/16/24 18:33 RSV (PCR) Negative (Negative) 08/16/24 18:33 SARS-CoV-2 (PCR) Negative (Negative) 08/16/24 18:33 Discharge Plan Discharge Patient Disposition: Home Clinical Impression: Fever, Headache Condition: Stable Prescriptions: No Action No Known Home Medications Discharge Orders: Discharge ED (Routine); Ordered 08/16/24 Ordered By: Wade Mandel Referrals: Fang Neely, [facility] [Primary Care Provider, Family Practice] Discharge Diet: Advance as tolerated Discharge Activity: Increase activity as tolerated Patient Instructions: Fever - Adult Activity Restrictions/Additional Instructions: As we discussed, your blood tests today are reassuring and your symptoms are not indicative of meningitis or any other emergency requiring hospitalization. Please take ibuprofen, Tylenol, and stay well-hydrated and get plenty of sleep. Stand Alone Forms: Work/School Release Print Language: Colombian Sign Out Sign Out Data: Patient Sign Out occurred on 08/16/24 at 19:29. Patient's care was discussed, and care was transferred from Wale Guidry DO to Wade Mandel MD. Coding Level of Care Code ED [employer] for Chg Fwd Documented by User: Wade Mandel MD 08/17/24 07:05 HPI - Arrhythmia/Palpitations General: Chief Complaint: Arrhythmia/Palpitations Stated Complaint: chest pain, L arm pain, urgent care sent Time Seen by Provider: 08/16/24 15:13 Related Data Home Medications ?Medication ?Instructions ?Recorded ?Confirmed No Known Home Medications 08/16/24 08/16/24 Allergies Allergy/AdvReac Type Severity Reaction Status Date / Time diltiazem Allergy Intermediate palpitation Verified 08/16/24 14:51 s metoprolol Allergy Mild light Verified 08/16/24 14:51 headedness COUNT INCLUDES THE [facility] ED PFSH: Medical History Paroxysmal atrial fibrillation with RVR Palpitations Chronic left shoulder pain Trapezius muscle spasm Tendonitis of left rotator cuff Impingement syndrome, shoulder, left Obesity, morbid, BMI 40.0-49.9 Family history of breast cancer in first degree relative PCOS (polycystic ovarian syndrome) Reports being diagnosed with PCOS in 2019 with irregular bleeding after the Nexplanon was removed. This was diagnosed by a doctor in [place]. Surgical History H/O tubal ligation (~05/2022) Right radial fracture At the age of 7 which was repaired with surgery. History of tonsillectomy At the age of 5-no complications History of arthroplasty of knee bilateral 2 times--both surgeries were performed in 2012 Family History Grandmother Breast cancer maternal, diagnosed at age 30. She also had cervical cancer diagnosed at the age of 50. Mother Cancer thyroid cancer diagnosed in her 30s Breast cancer diagnosed at age 27--lump was palpated while patient was breast-feeding and she was diagnosed with cancer. Underwent lumpectomy with radiation and chemotherapy Hypertension Father Diabetes Hyperlipidemia Hypertension Obese Grandfather Diabetes maternal and paternal Hyperlipidemia paternal and maternal Hypertension maternal Denies family history of Colon cancer Ovarian cancer Heart disease Anesthesia complication Stroke Social History Smoking and tobacco/nicotine status: never used tobacco/nicotine Alcohol intake: former Substance/Drug Use: never Adopted: No Caregiver/support person: No Lives independently: Yes Household members: family Housing: House Marital status: Single Number of children: 2 service: No Current occupational status: employed Current occupation: [employer] Pets and animals: Yes Do you think of yourself as: Straight/Heterosexual Current gender identity: Female Course Vital Signs: Vital signs: Vital Signs Temperature 100.2 F H 08/16/24 14:40 Pulse Rate 94 08/16/24 20:09 Respiratory Rate 17 08/16/24 20:00 Blood Pressure 118/72 08/16/24 20:09 Pulse Oximetry 96 08/16/24 20:09 Oxygen Delivery Nd thod Room Air 08/16/24 14:40 MDM - Arrhythmia/Palpitations Medical Decision Making Patient signed out to me by prior emergency physician pending labs. EKG shows sinus tachycardia. With initial temperature 100.2, careful consideration was made for possible infectious etiology to the tachycardia. No obvious infection found. After receiving antipyretics, she feels much better. She has no cough, no dysuria, no abdominal pain, no meningismus. Headache is better. I am uncertain of the etiology of her symptoms but suspect viral process. She shows good understanding and will be discharged in stable and improved condition with follow-up primary care as needed Lab Data 08/16/24 16:34 08/16/24 16:34 Radiology Impressions Chest X-Ray 08/16/24 15:14 IMPRESSION: No acute findings. Laboratory Results WBC 6.60 10^3/uL (3.29-11.43) 08/16/24 16:34 RBC 4.31 10^6/uL (3.85-5.65) 08/16/24 16:34 Hgb 13.00 g/dL (11.27-16.99) 08/16/24 16:34 Hct 42.2 % (36-47) 08/16/24 16:34 MCV 97.9 fl (85-98) 08/16/24 16:34 MCH 30.2 pg (27-33) 08/16/24 16:34 MCHC 30.8 g/dL (30-55) 08/16/24 16:34 RDW 12.2 % (12.1-15.1) 08/16/24 16:34 Plt Count 169 10^3/cmm (157-399) 08/16/24 16:34 MPV 9.8 fL (7.4-10.4) 08/16/24 16:34 Neut % (Auto) 71.3 % 08/16/24 16:34 Lymph % (Auto) 20.5 % 08/16/24 16:34 Bladen % (Auto) 7.4 % 08/16/24 16:34 Eos % (Auto) 0.2 % 08/16/24 16:34 Baso % (Auto) 0.3 % 08/16/24 16:34 Neut # (Auto) 4.71 10^3/uL (1.8-7.7) 08/16/24 16:34 Lymph # (Auto) 1.4 10^3/uL (0.8-4.8) 08/16/24 16:34 [place]aden # (Auto) 0.5 10^3/uL (0.2-0.9) 08/16/24 16:34 Eos # (Auto) 0.0 10^3/uL (0.0-0.8) 08/16/24 16:34 Baso # (Auto) 0.0 10^3/uL (0.0-0.1) 08/16/24 16:34 Nucleated RBC % (auto) 0 % 08/16/24 16:34 Nucleated RBCs # 0.0 /100WBC 08/16/24 16:34 Sodium 137 mmol/L (136-145) 08/16/24 16:34 Potassium 3.5 mmol/L (3.5-5.1) 08/16/24 16:34 Chloride 105 mmol/L (98-107) 08/16/24 16:34 Carbon Dioxide 14 mmol/L (22-29) L 08/16/24 16:34 Anion Gap 21.5 (5-19) H 08/16/24 16:34 BUN 11 mg/dL (6-20) 08/16/24 16:34 Creatinine 0.8 mg/dL (0.5-0.9) 08/16/24 16:34 GFR Calculation 84.2 mL/min (90-130) L 08/16/24 16:34 Glucose 83 mg/dL (65-115) 08/16/24 16:34 Calculated Osmolality 283 mOsm/kg (285-295) L 08/16/24 16:34 Calcium 8.3 mg/dL (8.5-10.5) L 08/16/24 16:34 Total Bilirubin 0.6 mg/dL (0.15-1.2) 08/16/24 16:34 AST 10 U/L (0-32) 08/16/24 16:34 ALT 11 U/L (0-33) 08/16/24 16:34 Alkaline Phosphatase 77 U/L (35-105) 08/16/24 16:34 Total Protein 5.8 g/dL (6.6-8.7) L 08/16/24 16:34 Albumin 4.0 g/dL (3.5-5.2) 08/16/24 16:34 Globulin 1.8 g/dL (1.3-4.6) 08/16/24 16:34 Urine Color Yellow (Yellow) 08/16/24 17:40 Urine Appearance Clear (CLEAR) 08/16/24 17:40 Urine pH 6.0 (5-7) 08/16/24 17:40 Ur Specific [place] 1.007 (1.005-1.030) 08/16/24 17:40 Urine Protein Negative (Negative) 08/16/24 17:40 Urine Glucose (UA) Negative (Normal) 08/16/24 17:40 Urine Ketones Negative (Negative) 08/16/24 17:40 Urine Blood Negative (Negative) 08/16/24 17:40 Urine Nitrate Negative (Negative) 08/16/24 17:40 Urine Bilirubin Negative (Negative) 08/16/24 17:40 Urine Urobilinogen 0.2 mg/dL (Negative) 08/16/24 17:40 Ur Leukocyte Esterase 1+ (Negative) A 08/16/24 17:40 Urine RBC 0-2 /hpf (0-2) 08/16/24 17:40 Urine WBC 6-10 /hpf (0-5) 08/16/24 17:40 Ur Squamous Epith Cells 6-10 /hpf (0-5) 08/16/24 17:40 Amorphous Sediment Not Reportable 08/16/24 17:40 Urine Bacteria None seen /hpf (NONE) 08/16/24 17:40 Hyaline Casts 0-4 /lpf H 08/16/24 17:40 Influenza A (PCR) Negative (Negative) 08/16/24 18:33 Influenza Type B (PCR) Negative (Negative) 08/16/24 18:33 RSV (PCR) Negative (Negative) 08/16/24 18:33 SARS-CoV-2 (PCR) Negative (Negative) 08/16/24 18:33 All radiology interpretation(s) finalized by discharge Discharge Plan Discharge Patient Disposition: Home Clinical Impression: Fever, Headache Condition: Stable Prescriptions: No Action No Known Home Medications Discharge Orders: Discharge ED (Routine); Ordered 08/16/24 Ordered By: Wade Mandel Referrals: Fang Neely, [facility] [Primary Care Provider, [facility]] Discharge Diet: Advance as tolerated Discharge Activity: Increase activity as tolerated Patient Instructions: Fever - Adult Activity Restrictions/Additional Instructions: As we discussed, your blood tests today are reassuring and your symptoms are not indicative of meningitis or any other emergency requiring hospitalization. Please take ibuprofen, Tylenol, and stay well-hydrated and get plenty of sleep. Stand Alone Forms: Work/School Release Print Language: Colombian Sign Out Sign Out Data: Patient Sign Out occurred on 08/16/24 at 19:29. Patient's care was discussed, and care was transferred from Wale Guidry DO to Wade Mandel MD. Coding Level of Care Code ED [employer] for Melissa Nielsen
[2024-08-16] MEDS: prochlorperazine 10 mg/2 mL Inj IVP (16:00)
[2024-08-16] MEDS: sodium chloride 0.9% 1,000 ML 999 ML IV (16:00)
[2024-08-16] MEDS: ketorolac 30 mg/mL INJ IVP (16:01)
[2024-08-16] MEDS: diphenhydrAMINE 50 mg/mL SDV 1mL IVP (16:02)
[2024-08-16] MEDS: valproic acid inj 500 MG in sodium chloride 0.9% 50 ML 55 MG IV (16:05)
[2024-08-16 16:41] LABS: Basophils % 0.3 %; Eosinophils % 0.2 %; Hematocrit 42.2 % (36-47); Lymphocytes # 1.4 10^3/uL (0.8-4.8); Lymphocytes % 20.5 %; Mean Corpuscular HGB Conc 30.8 g/dL (30-55); Mean Corpuscular Hemoglobin 30.2 pg (27-33); Mean Corpuscular Volume 97.9 fl (85-98); Mean Platelet Volume 9.8 fL (7.4-10.4); Monocytes # 0.5 10^3/uL (0.2-0.9); Monocytes % 7.4 %; Neutrophils # 4.71 10^3/uL (1.8-7.7); Neutrophils % 71.3 %; Nucleated Red Blood Cells % 0 %; Platelet Count 169 10^3/cmm (157-399); Red Blood Count 4.31 10^6/uL (3.85-5.65); Red Cell Distribution Width 12.2 % (12.1-15.1)
[2024-08-16 18:30] LABS: Alanine Aminotransferase 11 U/L (0-33); Alkaline Phosphatase 77 U/L (35-105); Aspartate Amino Transferase 10 U/L (0-32); Blood Urea Nitrogen 11 mg/dL (6-20); Calcium 8.3 mg/dL (8.5-10.5); Carbon Dioxide 14 mmol/L (22-29); Creatinine Clr Calc Pharmacy 120.8994; Globulin 1.8 g/dL (1.3-4.6); Glomerular Filtration Rate 84.2 mL/min (90-130); Glucose 83 mg/dL (65-115); Total Bilirubin 0.6 mg/dL (0.15-1.2); Total Protein 5.8 g/dL (6.6-8.7)
[2024-08-16 18:35] LABS: Bilirubin Urine Negative (Negative); Blood Urine Negative (Negative); Glucose Urine UA Negative (Normal); Ketones Urine Negative (Negative); Leukocyte Esterase Urine 1+ (Negative); Nitrate Urine Negative (Negative); Protein Urine Negative (Negative); Specific Gravity, Urine 1.007 (1.005-1.030); Urine Appearance Clear (CLEAR); Urine Color Yellow (Yellow); Urobilinogen Urine 0.2 mg/dL (Negative)
[2024-08-16 18:39] LABS: Add Urine Microscopic? YES; Bacteria Urine None Seen /hpf; Hyaline Casts Urine 0-4 /lpf; RBC Urine 0-2 /hpf (0-2)
[2024-08-16 18:51] LABS: Chloride 105 mmol/L (98-107); Osmolality Calculated 283 mOsm/kg (285-295); Sodium 137 mmol/L (136-145)
[2024-08-16 18:53] LABS: Anion Gap 21.5 (5-19); Potassium 3.5 mmol/L (3.5-5.1)
[2024-08-16 19:21] LABS: Influenza A NEGATIVE (Negative); Influenza B NEGATIVE (Negative); Respiratory Syncytial Virus Ce NEGATIVE (Negative); SARS-CoV-2 PCR NEGATIVE (Negative)
== END 2024-08-16 20:10 | disposition home or self-care (01) ==
PROVIDERS: Family Medicine; Emergency Provider Student in an Organized Health Care Education/Training Program; PCP Nurse Practitioner
DX: R50.9 Fever, unspecified (principal); R51.9 Headache, unspecified; Z11.52 Encounter for screening for COVID-19
CPT/HCPCS: 36415; 71045; 80053; 81001; 85025; 87637; 93005; 96374; 96375; 99285; J0780; J1200; J1885; J3490; J7030

== ENCOUNTER 2024-08-19 22:28 | Emergency (ER) | payer MEDICAID, SELFPAY ==
[2024-08-19 22:30] VITALS: BP 114/78; PULSE 122; RESP 18; TEMP 36.7; O2SAT 96; BMI 35.8
[2024-08-20 02:10] VITALS: BP 128/70; PULSE 72; RESP 17; O2SAT 98
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
[2024-08-20] MEDS: ketorolac 30 mg/mL INJ 15 MG IVP (02:36)
[2024-08-20 03:00] VITALS: BP 120/83; PULSE 68; RESP 16; O2SAT 99
[2024-08-20 03:59] VITALS: BP 124/69; PULSE 67; RESP 16; O2SAT 97
== END 2024-08-20 04:01 | disposition home or self-care (01) ==
PROVIDERS: Emergency Provider Emergency Medicine; PCP Nurse Practitioner
DX: M25.512 Pain in left shoulder (principal); M54.2 Cervicalgia; R51.9 Headache, unspecified
CPT/HCPCS: 70450; 72040; 73030; 96374; 99285; J1885

== ENCOUNTER 2024-09-13 05:00 | Outpatient (RCR) | payer MEDICAID, SELFPAY | END 2024-10-13 23:59 | disposition home or self-care (01) | LOC: MPT 05:00 | PROVIDERS: PCP Nurse Practitioner; Visit Provider Orthopaedic Surgery | DX: M25.512 Pain in left shoulder (principal); G89.29 Other chronic pain | CPT/HCPCS: 97110; 97140; 97164 ==

== ENCOUNTER 2024-10-14 05:00 | Outpatient (RCR) | payer MEDICAID, SELFPAY | END 2024-11-13 23:59 | disposition home or self-care (01) | LOC: MPT 05:00 | PROVIDERS: PCP Nurse Practitioner; Visit Provider Orthopaedic Surgery | DX: M25.512 Pain in left shoulder (principal); G89.29 Other chronic pain | CPT/HCPCS: 97110; 97140 ==

== ENCOUNTER 2024-11-14 05:00 | Outpatient (RCR) | payer MEDICAID, SELFPAY | END 2024-12-13 23:59 | disposition home or self-care (01) | LOC: MPT 05:00 | PROVIDERS: PCP Nurse Practitioner; Visit Provider Orthopaedic Surgery | DX: M25.519 Pain in unspecified shoulder (principal); G89.29 Other chronic pain | CPT/HCPCS: 97110; 97140 ==

== ENCOUNTER → 2024-12-30 10:30 | Outpatient (BNVA) | payer MEDICAID, SELFPAY | PROVIDERS: PCP Nurse Practitioner; Visit Provider Nurse Practitioner Women's Health | DX: Z11.3 Encounter for screening for infections with a predominantly sexual mode of transmission (principal); R10.20 Pelvic and perineal pain unspecified side; R74.8 Abnormal levels of other serum enzymes; Z12.4 Encounter for screening for malignant neoplasm of cervix | CPT/HCPCS: 80053; 85025; 86592; 86706; 86803; 87491; 87591; 87624; 87661; 87806 ==

== ENCOUNTER 2025-01-11 13:50 | Outpatient (CLI) | payer MEDICAID, SELFPAY ==
--- NOTE | 2025-01-11 13:30 | USR_ITS ---
PROCEDURE INFORMATION: Exam: US Pelvis, Transvaginal, Non-Obstetric Exam date and time: 01/11/2025 2:08 PM Age: 29 years old Clinical indication: Pelvic pain; Additional info: R10.21 - pelvic and perineal pain right side TECHNIQUE: Imaging protocol: Real-time transvaginal pelvic (non-obstetric) ultrasound with image documentation. Transvaginal imaging was used for better evaluation of the endometrium, adnexa, and/or cervix. COMPARISON: US pelv w/transvag [id number] 10/22/2023 11:46 AM FINDINGS: Uterus: Uterus is normal. Endometrial stripe is normal. Endometrial stripe thickness 0.6 cm. Right ovary/adnexa: Normal. No mass. Normal ovarian blood flow on color Doppler. Left ovary/adnexa: Normal. No mass. Normal ovarian blood flow on color Doppler. Urinary bladder: Urinary bladder is limited. Intraperitoneal space: Mild free fluid in the cul-de-sac. US/US transvaginal [id number] IMPRESSION: No acute findings.
== END 2025-01-11 13:51 | disposition home or self-care (01) ==
PROVIDERS: PCP Nurse Practitioner; Visit Provider Nurse Practitioner Women's Health
DX: R10.21 Pelvic and perineal pain right side (principal); R18.8 Other ascites
CPT/HCPCS: 76830

== ENCOUNTER 2025-03-03 17:51 | Emergency (ER) | payer MEDICAID, SELFPAY ==
[2025-03-03] VITALS (20 sets, daily range): BP systolic 81–146; BP diastolic 50–90; PULSE 90–100; RESP 16–18; TEMP 36.4; O2SAT 88–100; BMI 33.9
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
--- OUTSIDE RECORDS SUMMARY | 2025-03-03 17:58 | XMS_ITS | Clinical Summary ---
Author Organization [facility] Address [address] [address] Care Team Providers Care Glove Turner And Former Name Role Phone Adam Bro Primary Care Provider [phone] Allergies No known active allergies Medications naproxen (NAPROSYN) 500 mg Oral TabIndications:B ilateral knee pain Take 1 Tab by mouth 2 times daily with meals. 60 Tab 1 10/03/2008 Active norgestimate-eth inyl estradiol (ORTHO TRI-CYCLEN, 28,) 0.18/0.215/0.25 mg-35 mcg (28) Oral tablet Take 1 Tab by mouth daily. Active ciprofloxacin (CIPRO) 500 mg Oral tablet Take 1 Tab by mouth 2 times daily. 20 Tab None 03/22/2012 Active Active Problems Problem Noted Date Diagnosed Date Patellofemoral pain syndrome 10/03/2008 Family History Relation Name Status Comments Father Alive Mother Alive Social History Tobacco Use Types Packs/Day Years Used Date Smoking Tobacco: Never Alcohol Use Standard Drinks/Week Comments No 0 (1 standard drink = 0.6 oz pur e alcohol) Comments No Sex and Gender Information Value Date Recorded Sex Assigned at Not on file Legal Sex Female 7:22 AM CORPORATE LEGAL INTERN Gender Identity Not on file Sexual Orientation Not on file Occupation Industry Job Start Date Job End Date Not on file Not on file Not on file Not on file Last Filed Vital Signs Vital Sign Reading Time Taken Comments Blood Pressure 119/67 03/22/2012 3:29 AM CORPORATE LEGAL INTERN Pulse 68 03/22/2012 3:29 AM CORPORATE LEGAL INTERN Temperature 35.9 C (96.6 F) 03/22/2012 3:29 AM CORPORATE LEGAL INTERN Respiratory Rate 18 03/22/2012 3:29 AM CORPORATE LEGAL INTERN Oxygen Saturation 95% 03/22/2012 3:29 AM CORPORATE LEGAL INTERN Inhaled Oxygen Concentration - - Weight 72.6 kg (160 lb) 03/22/2012 12:13 AM CORPORATE LEGAL INTERN Height 167.6 cm (5' 6 ) 03/22/2012 12:13 AM CORPORATE LEGAL INTERN Body Mass Index 25.82 03/22/2012 12:13 AM CORPORATE LEGAL INTERN Plan of Treatment Health Maintenance Due Date Last Done Comments DTAP/TDAP/TD VACCINES (1 - Tdap) 2013 HEPATITIS B VACCINES (1 of 3 - 19+ 3-dose series) 07/15 HPV/Cotest (21-29) 08/09/2015 CERVICAL CANCER SCREENING 2024 HPV/Cotest (30-65) 2024 PAP SMEAR 2024 INFLUENZA VACCINE (#1) 2024 HPV VACCINES (No Doses Required) Completed Insurance [place] Care Teams Glove Turner And Former Relationship Specialty Start Date End Date Adam Bro DO [address] [place] [address] PCP - General Family Practice 03/22/12
--- OUTSIDE RECORDS SUMMARY | 2025-03-03 17:59 | XMS_ITS | Clinical Summary ---
Author Organization [facility] Address [address] Attn: Epic Prelude ADT [address] [address] Care Team Providers Care Global Compensation Manager Name Role Phone Adam Bro DO Primary Care Provider [phone] Allergies No known active allergies Active Problems Problem Noted Date Diagnosed Date Patellofemoral pain syndrome 10/03/2008 Family History Relation Name Status Comments Father Alive Mother Alive Social History Tobacco Use Types Packs/Day Years Used Date Smoking Tobacco: Never Alcohol Use Standard Drinks/Week Comments No 0 (1 standard drink = 0.6 oz pur e alcohol) Comments Unknown Sex and Gender Information Value Date Recorded Sex Assigned at Not on file Legal Sex Female 8:05 AM CHILD CARE PROVIDER Gender Identity Not on file Sexual Orientation Not on file Plan of Treatment Health Maintenance Due Date Last Done Comments DTAP/TDAP/TD VACCINES (1 - Tdap) 2013 HEPATITIS B VACCINES (1 of 3 - 19+ 3-dose series) 07/15 HPV/Cotest (21-29) 08/09/2015 CERVICAL CANCER SCREENING 2024 HPV/Cotest (30-65) 2024 PAP SMEAR 2024 INFLUENZA VACCINE (#1) 2024 HPV VACCINES (No Doses Required) Completed Care Teams Global Compensation Manager Relationship Specialty Start Date End Date Adam Bro DO [address] [place] [address] PCP - General Family Practice 03/22/12
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
[2025-03-03] MEDS: orphenadrine 30 mg/mL Inj 2 mL 60 MG IM (19:28)
== END 2025-03-03 20:06 | disposition home or self-care (01) ==
PROVIDERS: Emergency Provider Physician Assistant; PCP Nurse Practitioner
DX: S46.002A Unspecified injury of muscle(s) and tendon(s) of the rotator cuff of left shoulder, initial encounter (principal); Y04.2XXA Assault by strike against or bumped into by another person, initial encounter
CPT/HCPCS: 70450; 72125; 73030; 73080; 96372; 99284; J1885; J2360